=== PATIENT | male | born 1980 | race Caucasian/White ===

== ENCOUNTER 2020-06-11 02:12 | Inpatient (IN) ==
[2020-06-11] MEDS ORDERED: 0.9 % SODIUM CHLORIDE 1,000 ML IV ONE ×3 (02:41→04:22)
[2020-06-11] MEDS ORDERED: INSULIN REGULAR, HUMAN 1 UNIT/0.01 ML UNIT IV ONE (02:41)
[2020-06-11] MEDS ORDERED: ONDANSETRON 4 MG ODT TABLET SL ONE (02:41)
[2020-06-11 02:52] LABS: POC Blood Urea Nitrogen 27 mg/dL (6-20); POC CO2 10 mmol/L (22-30); POC Calcium, Ionized 1.07 mmEq/L (1.16-1.32); POC Chloride 96 mEq/L (96-108); POC Creatinine 1.2 mg/dL (0.6-1.2); POC Glucose, Random > 700 mg/dL; POC Hematocrit 45 % (41-55); POC Potassium 5.4 mEql/L (3.3-5.1); POC Sodium 127 mEq/L (133-145)
[2020-06-11] MEDS ORDERED: HALOPERIDOL LACTATE 5 MG/ML VIAL IV ONE (02:59)
[2020-06-11] MEDS ORDERED: LORazepam 2 MG/ML VIAL IV ONE (03:00)
[2020-06-11 03:42] LABS: Basophils # (Auto) 0.06 K/mcL (0.00-0.20); Basophils % (Auto) 0.3 % (0.0-2.0); Eosinophils # (Auto) 0.02 K/mcL (0.00-0.70); Eosinophils % (Auto) 0.1 % (0.0-7.0); Lymphocytes # (Auto) 2.02 K/mcL (1.50-4.80); Lymphocytes % (Auto) 11.4 % (15.0-49.0); Mean Cell Volume 97.4 fL (80.0-100.0); Mean Corpuscular HGB Conc 31.1 g/dL (31.0-36.0); Mean Platelet Volume 10.1 fL (7.4-10.4); Monocytes # (Auto) 0.64 K/mcL (0.10-0.90); Monocytes % (Auto) 3.6 % (1.0-12.0); Neutrophils % (Auto) 84.6 % (38.0-78.0); Platelet Count 547 K/mcL (140-440); RBC 4.62 M/mcL (4.50-5.90); Red Cell Distribution Width 13.3 % (11.5-14.5); WBC 17.8 K/mcL (4.5-11.0)
[2020-06-11 04:14] LABS: ALT/SGPT 22 U/L (<40); AST/SGOT 20 U/L (<40); Albumin 4.1 gm/dL (3.2-5.2); Albumin/Globulin Ratio 1.1 (1.0-2.3); Alkaline Phosphatase 190 U/L (39-117); Bilirubin,Total 0.4 mg/dL (0.1-1.0); Blood Urea Nitrogen 24 mg/dL (6-20); Carbon Dioxide 7 mmol/L (22-30); Chloride 85 mmol/L (96-108); Globulin 3.8 gm/dL (2.2-3.7); Glomerular Filtration Rate 62; Glucose 765 mg/dL (70-105)
[2020-06-11] MEDS ORDERED: INSULIN REGULAR, HUMAN 50 UNIT in 0.9 % SODIUM CHLORIDE 99.5 ML IV SCH (04:45)
[2020-06-11] MEDS ORDERED: INSULIN REGULAR, HUMAN 1 UNIT/0.01 ML UNIT ONE (04:49)
[2020-06-11 06:05] LABS: Appearance,Urine CLEAR (Clear); Bacteria,Urine 0 /hpf (0); Bilirubin,Urine Negative (Negative); Color,Urine RED; Culture Indicated,Urine No; Glucose,Urine (UA) >=500 mg/dL (Negative); Ketones,Urine 80 mg/dL (Negative); Leukocyte Esterase,Urine Negative /ug (Negative); Nitrate,Urine Negative (Negative); Protein,Urine Negative (Negative); Specific Gravity,Urine 1.023 (1.000-1.035); Urine Blood 0.03 mg/dL (Negative); Urine RBC 0 /hpf (0-3); Urine Squamous Epithelial Cell 0 /hpf (0-4); Urine WBC 0 /hpf (0-4); Urobilinogen,Urine Negative
[2020-06-11] MEDS ORDERED: 0.9 % SODIUM CHLORIDE 1,000 ML IV SCH (06:15)
--- NOTE | 2020-06-11 07:08 | Emergency Department Note ---
HPI General Chief complaint: Blood Sugar Problem Stated complaint: high blood sugar Time Seen by Provider: 06/11/20 02:41 Source: patient Mode of arrival: ambulatory Limitations: no limitations History of Present Illness HPI Narrative: Narrative: This patient apparently ran out of his insulin 3 days ago and has been ill during that time with nausea and vomiting and his blood sugar is running quite high over 700 here. Does not have abdominal pain no cough. He is an IV drug user and has minimal veins available for axis. However experienced nurses placed an IO in his left tibia to gain IV access. Related Data Home Medications Medication Instructions Recorded Confirmed albuterol sulfate [Ventolin] 2 puff INH Q4HP PRN 04/01/18 04/01/18 insulin aspart U-100 [Novolog] 1 unit SQ QDAY 04/01/18 04/01/18 insulin glargine [Lantus] 15 unit SQ BID 04/01/18 04/01/18 lisinopril 2.5 mg PO DAILY 04/01/18 04/01/18 mometasone-formoterol [Dulera 100 2 puff IH BID 04/01/18 04/01/18 Mcg/5 Mcg Inhaler] omeprazole 20 mg PO QDAY 04/01/18 04/01/18 trazodone 50 mg PO HS 04/01/18 04/01/18 Previous Rx's Medication Instructions Recorded amoxicillin-pot clavulanate 875 mg PO Q12H #20 tab 04/01/18 doxycycline monohydrate 100 mg PO BID 10 Days #20 cap 04/21/18 fluticasone propionate 15.8 ml NS DAILY 30 Days #1 04/21/18 spray.susp loratadine 10 mg PO DAILY #20 cap 04/21/18 acyclovir 200 mg PO Q4H #50 cap 05/04/18 cephalexin 500 mg PO QID #40 cap 07/06/18 doxycycline hyclate 100 mg PO BID #20 cap 07/07/18 sulfamethoxazole-trimethoprim 1 tab PO Q12H #20 tab 11/14/19 [Bactrim DS] Allergies Allergy/AdvReac Type Severity Reaction Status Date / Time No Known Drug Allergies Allergy Verified 06/11/20 02:20 Review of Systems ROS ROS Narrative: Narrative: All systems ED: reviewed and negative except as stated. PFSH Narrative Patient History Narrative: Narrative: Medical/Surgical/Family History All Active Problems (Updated 06/11/20 @ 08:45 by Barrett Young MD) Gastroenteritis (Acute) Sinusitis (Acute) Diabetes (Acute) Hyperglycemia (Acute) Genital herpes (Acute) Abscess of skin or subcutaneous tissue (Acute) Degenerative disc disease, thoracic (Acute) Abscess (Acute) Diabetic keto-acidosis (Acute) Social History Smoking Status: Never smoker Alcohol Intake Frequency: a few times a week Substance Use: other (Unknown) Exam Narrative Narrative: Narrative: General Limitations: no limitations Head Head: Present atraumatic, normocephalic and normal inspection Eye Eye: Present normal appearance and EOMI; Absent scleral icterus and conjunctival injection ENT ENT: Present normal exam and mucous membranes dry Neck Neck: Present normal inspection and full ROM Chest Chest: Present normal inspection and symmetric chest wall rise Respiratory Respiratory: Present normal lung sounds bilaterally; Absent respiratory dist ress, rales/crackles and wheezes Cardiovascular Cardiovascular: Present regular rate, normal rhythm and normal heart sounds Adbominal Abdominal: Present soft; Absent distention and tenderness Extremities Extremities: Present normal inspection and full ROM; Absent tenderness and pedal edema Neurological Neurological: Present alert Psychiatric Psychiatric: Present normal affect Skin Skin: Present warm (WNL), dry, diaphoresis and other (He does have some pustules on his anterior chest wall that are little bit erythematous and apparently he is under treatment for MRSA.) Course Vital Signs Vital signs: Vital Signs Pulse Rate 97 H 06/11/20 02:13 Respiratory Rate 35 H 06/11/20 02:13 Blood Pressure 180/100 06/11/20 02:13 Pulse Oximetry (%) 100 06/11/20 02:13 Pulse Rate 103 H 06/11/20 08:31 Respiratory Rate 19 06/11/20 08:31 Blood Pressure 147/77 06/11/20 08:31 Pulse Oximetry (%) 98 06/11/20 08:31 MDM MDM Narrative Medical decision making narrative: Narrative: This patient was in severe diabetic ketoacidosis initially with an anion gap of 35 and a T CO2 of 7. He was hydrated with normal saline given regular insulin IV and an insulin drip was started as soon as it was evident that he was in DKA. I have discussed this case with the hospitalist and he will be admitted to the ICU. We will do blood cultures a chest x-ray and a UDS before admission. Lab Data Lab results reviewed: Yes I reviewed the patient's lab results. Result diagrams: 06/11/20 02:33 06/11/20 06:57 Labs: Lab Results 06/11/20 06/11/20 06/11/20 Range/Units 02:33 02:33 02:33 WBC 17.8 H (4.5-11.0) K/mcL RBC 4.62 (4.50-5.90) M/mcL Hgb 14.0 (13.5-16.5) g/dL Hct 45.0 (41.0-55.0) % POC Hct 45 (41-55) % MCV 97.4 (80.0-100.0) fL MCH 30.3 (26.0-34.0) pg MCHC 31.1 (31.0-36.0) g/dL RDW 13.3 (11.5-14.5) % Plt Count 547 H (140-440) K/mcL MPV 10.1 (7.4-10.4) fL Neut % (Auto) 84.6 H (38.0-78.0) % Lymph % (Auto) 11.4 L (15.0-49.0) % [place]oke % (Auto) 3.6 (1.0-12.0) % Eos % (Auto) 0.1 (0.0-7.0) % Baso % (Auto) 0.3 (0.0-2.0) % Lymph # (Auto) 2.02 (1.50-4.80) K/mcL [place] # (Auto) 0.64 (0.10-0.90) K/mcL Eos # (Auto) 0.02 (0.00-0.70) K/mcL Baso # (Auto) 0.06 (0.00-0.20) K/mcL Absolute Neutrophils 15.05 H (1.80-8.00) K/mcL POC Sodium 127 L (133-145) mEq/L Sodium 127 L (133-145) mmol/L POC Potassium 5.4 H (3.3-5.1) mEql/L Potassium 5.5 H (3.3-5.1) mmol/L POC Chloride 96 (96-108) mEq/L Chloride 85 L (96-108) mmol/L Carbon Dioxide 7 L* (22-30) mmol/L POC Total CO2 10 L (22-30) mmol/L Anion Gap 35.0 H (8.0-16.0) POC BUN 27 H (6-20) mg/dL BUN 24 H (6-20) mg/dL Creatinine 1.4 H (0.7-1.2) mg/dL POC Creatinine 1.2 (0.6-1.2) mg/dL GFR Calculation 62 Glucose 765 H* (70-105) mg/dL POC Glucose > 700 H* mg/dL Calcium 9.0 (8.6-10.4) mg/dL POC WB Ioniz Calcium 1.07 L (1.16-1.32) mmEq/L Total Bilirubin 0.4 (0.1-1.0) mg/dL AST 20 (<40) U/L ALT 22 (<40) U/L Alkaline Phosphatase 190 H (39-117) U/L Total Protein 7.9 (5.9-8.4) gm/dL Albumin 4.1 (3.2-5.2) gm/dL Globulin 3.8 H (2.2-3.7) gm/dL Albumin/Globulin Ratio 1.1 (1.0-2.3) Lipase 12 (7-60) U/L Beta-Hydroxybutyrate 10.80 H (<0.27) mmol/L Urine Color Urine Appearance (Clear) Urine pH (5.0-9.0) Ur Specific [place] (1.000-1.035) Urine Protein (Negative) mg/dL Urine Glucose (UA) (Negative) mg/dL Urine Ketones (Negative) mg/dL Urine Occult Blood (Negative) mg/dL Urine Nitrate (Negative) Urine Bilirubin (Negative) mg/dL Urine Urobilinogen mg/dL Ur Leukocyte Esterase (Negative) /ug Urine RBC (0-3) /hpf Urine WBC (0-4) /hpf Ur Squamous Epith Cells (0-4) /hpf Urine Bacteria (0) /hpf Ur Culture Indicated? 06/11/20 06/11/20 Range/Units 04:18 06:57 WBC (4.5-11.0) K/mcL RBC (4.50-5.90) M/mcL Hgb (13.5-16.5) g/dL Hct (41.0-55.0) % POC Hct (41-55) % MCV (80.0-100.0) fL MCH (26.0-34.0) pg MCHC (31.0-36.0) g/dL RDW (11.5-14.5) % Plt Count (140-440) K/mcL MPV (7.4-10.4) fL Neut % (Auto) (38.0-78.0) % Lymph % (Auto) (15.0-49.0) % [place] % (Auto) (1.0-12.0) % Eos % (Auto) (0.0-7.0) % Baso % (Auto) (0.0-2.0) % Lymph # (Auto) (1.50-4.80) K/mcL [place] # (Auto) (0.10-0.90) K/mcL Eos # (Auto) (0.00-0.70) K/mcL Baso # (Auto) (0.00-0.20) K/mcL Absolute Neutrophils (1.80-8.00) K/mcL POC Sodium (133-145) mEq/L Sodium 133 (133-145) mmol/L POC Potassium (3.3-5.1) mEql/L Potassium 5.1 (3.3-5.1) mmol/L POC Chloride (96-108) mEq/L Chloride 101 (96-108) mmol/L Carbon Dioxide 15 L (22-30) mmol/L POC Total CO2 (22-30) mmol/L Anion Gap 17.0 H (8.0-16.0) POC BUN (6-20) mg/dL BUN 20 (6-20) mg/dL Creatinine 1.0 (0.7-1.2) mg/dL POC Creatinine (0.6-1.2) mg/dL GFR Calculation 93 Glucose 250 H (70-105) mg/dL POC Glucose mg/dL Calcium 8.0 L (8.6-10.4) mg/dL POC WB Ioniz Calcium (1.16-1.32) mmEq/L Total Bilirubin 0.3 (0.1-1.0) mg/dL AST 16 (<40) U/L ALT 20 (<40) U/L Alkaline Phosphatase 166 H (39-117) U/L Total Protein 7.0 (5.9-8.4) gm/dL Albumin 3.7 (3.2-5.2) gm/dL Globulin 3.3 (2.2-3.7) gm/dL Albumin/Globulin Ratio 1.1 (1.0-2.3) Lipase (7-60) U/L Beta-Hydroxybutyrate (<0.27) mmol/L Urine Color Red Urine Appearance Clear (Clear) Urine pH 5.0 (5.0-9.0) Ur Specific [place] 1.023 (1.000-1.035) Urine Protein Negative (Negative) mg/dL Urine Glucose (UA) >=500 A (Negative) mg/dL Urine Ketones 80 A (Negative) mg/dL Urine Occult Blood 0.03 (Negative) mg/dL Urine Nitrate Negative (Negative) Urine Bilirubin Negative (Negative) mg/dL Urine Urobilinogen Negative mg/dL Ur Leukocyte Esterase Negative (Negative) /ug Urine RBC 0 (0-3) /hpf Urine WBC 0 (0-4) /hpf Ur Squamous Epith Cells 0 (0-4) /hpf Urine Bacteria 0 (0) /hpf Ur Culture Indicated? No ED POC Tests ED POC Tests: AB - Influenza A Negative AB - Influenza B Negative AB - SARS Antigen Negative Discharge Plan Patient/Caregiver Discharge Instructions Pt seen by HOURLY CAREGIVER/PA only: No Clinical Impression: Diabetic keto-acidosis Patient Disposition: Xfer As Inpt ([facility]) Prescriptions: No Action Lantus U-100 Insulin 1 UNIT/0.01 ML solution 15 unit SQ BID RF: 0 trazodone 50 MG tablet 50 mg PO HS RF: 0 insulin aspart U-100 [Novolog U-100 Insulin aspart] 100 UNIT/ML solution 1 unit SQ QDAY RF: 0 omeprazole 20 MG capsule,delayed release(DR/EC) 20 mg PO QDAY RF: 0 albuterol sulfate [Ventolin HFA] 1 PUFF HFA aerosol inhaler 2 puff INH Q4HP PRN (Reason: Shortness Of Breath) RF: 0 lisinopril 2.5 MG tablet 2.5 mg PO DAILY RF: 0 Dulera 13 GM HFA aerosol inhaler 2 puff IH BID RF: 0 amoxicillin-pot clavulanate 875 MG tablet 875 mg PO Q12H Qty: 20 RF: 0 doxycycline monohydrate 100 MG capsule 100 mg PO BID 10 Days Qty: 20 RF: 0 fluticasone propionate 15.8 ML spray,suspension 15.8 ml NS DAILY 30 Days Qty: 1 RF: 0 loratadine 10 MG capsule 10 mg PO DAILY Qty: 20 RF: 0 acyclovir 200 MG capsule 200 mg PO Q4H Qty: 50 RF: 0 cephalexin 500 MG capsule 500 mg PO QID Qty: 40 RF: 0 doxycycline hyclate 100 MG capsule 100 mg PO BID Qty: 20 RF: 0 sulfamethoxazole-trimethoprim [Bactrim DS] 800-160 mg tablet 1 tab PO Q12H Qty: 20 RF: 0
[2020-06-11] MEDS ORDERED: DEXTROSE 5%-1/2NS 1,000 ML IV ONE (08:09)
[2020-06-11 08:33] LABS: ALT/SGPT 20 U/L (<40); AST/SGOT 16 U/L (<40); Albumin 3.7 gm/dL (3.2-5.2); Albumin/Globulin Ratio 1.1 (1.0-2.3); Alkaline Phosphatase 166 U/L (39-117); Bilirubin,Total 0.3 mg/dL (0.1-1.0); Blood Urea Nitrogen 20 mg/dL (6-20); Carbon Dioxide 15 mmol/L (22-30); Chloride 101 mmol/L (96-108); Globulin 3.3 gm/dL (2.2-3.7); Glomerular Filtration Rate 93; Glucose 250 mg/dL (70-105)
--- NOTE | 2020-06-11 09:05 | XRay Report ---
CLINICAL INFORMATION: Diabetic ketoacidosis COMPARISON: None. TECHNIQUE: PA and Lateral views FINDINGS: The heart size, mediastinum and pulmonary vessels are unremarkable. The lungs are clear. There are no effusions. The bones and soft tissues are within normal limits. IMPRESSION: Normal chest. Interpreted and Authenticated by: Yomi Kaur 06/11/20
[2020-06-11 09:59] LABS: Amphetamine Screen,Urine Suspect positive; Barbiturate Screen,Urine None detected; Benzodiazepines Screen,Urine None detected; Cannabinoid Screen,Urine None detected; Cocaine Screen,Urine None detected; Opiate Screen,Urine None detected; Oxycodone, Urine Screen None detected; Phencyclidine Screen,Urine None detected
--- NOTE | 2020-06-11 11:05 | Internal Med History&Physical ---
HPI History of Present Illness Patient information: Note initiated : 06/11/20 at 10:53 am Service Date, if different from initiated Date: [] Patient: Kelvin Plunkett 39 y/o M admitted on for High Blood Sugar. Chief Complaint: [Diabetic ketoacidosis ] History of present illness: Mr. Plunkett is a 39 year old diabetes mellitus type 1 diagnosed at age of 5, MRSA skin infections, asthma presented to the ED after 2 days of, nausea and vomiting and found to have diabetic ketoacidosis. Patient says that he ran out of insulin couple days ago. He denies recent fevers, shortness of breath, chest pain. The patient does have multiple skin infections consistent with his history of MRSA soft tissue skin infections. The patient has had IV drug use in the past but denies any recent drug use. Patient did have leukocytosis in the ED, no fevers documented. Patient was admitted to the ICU for DKA management. Review of systems Constitutional: no fever, positive for fatigue, Eyes: no vision changes or pain Cardiovascular: no chest pain, no palpitations Respiratory: no cough or dyspnea Gastrointestinal: positive for nausea and vomiting Genitourinary: no dysuria or difficulty voiding Musculoskeletal: no arthralgia or myalgia Integumentary: positive for chronic skin wounds Neurological: no focal weakness or numbness Psychiatric: no anxiety or depression PFSH PFSH All Active Problems (Updated 06/11/20 @ 08:45 by Barrett Young MD) Gastroenteritis (Acute) Sinusitis (Acute) Diabetes (Acute) Hyperglycemia (Acute) Genital herpes (Acute) Abscess of skin or subcutaneous tissue (Acute) Degenerative disc disease, thoracic (Acute) Abscess (Acute) Diabetic keto-acidosis (Acute) Social History smoking status: Never smoker alcohol intake frequency: a few times a week substance use type: other (Unknown) MEDS/ALLERGIES Home Medications and Allergies Home Medications Medication Instructions Recorded Confirmed Type albuterol sulfate [Ventolin] 2 puff INH Q4HP PRN 04/01/18 06/11/20 History insulin aspart U-100 [Novolog] 1 unit SQ QDAY 04/01/18 04/01/18 History insulin glargine [Lantus] 15 unit SQ BID 04/01/18 04/01/18 History lisinopril 2.5 mg PO DAILY 04/01/18 06/11/20 History mometasone-formoterol [Dulera 100 2 puff IH BID 04/01/18 04/01/18 History Mcg/5 Mcg Inhaler] omeprazole 20 mg PO QDAY 04/01/18 04/01/18 History trazodone 50 mg PO HS 04/01/18 06/11/20 History loratadine 10 mg PO DAILY #20 cap 04/21/18 Rx acyclovir 200 mg PO Q4H #50 cap 05/04/18 06/11/20 Rx fluticasone propionate INTRANASAL 06/11/20 06/11/20 History fluticasone propionate [Flovent 1 inh INHALATION BID 06/11/20 06/11/20 History Diskus] Allergies Allergy/AdvReac Type Severity Reaction Status Date / Time No Known Drug Allergies Allergy Verified 06/11/20 02:20 EXAM Constitutional Vitals: Pulse Resp BP Pulse Ox 88 22 149/78 98 06/11/20 10:31 06/11/20 10:31 06/11/20 10:31 06/11/20 10:31 Additional findings Additional findings: Head: Atraumatic, normal inspection. Eyes: normal appearance, no scleral icterus. Neck: full ROM Respiratory: increased respiratory rate, lungs clear bilaterally Cardiovascular: normal rate and rhythm, S1, S2. GI/Abdominal: soft, nontender, no guarding, surgical scar present Extremities: full range of motion, nontender, multiple small abscesses present Neurological: CN II-XII intact, intact motor, intact sensation. Psychiatric: normal mood. Skin: warm, normal color DATA Data Completed and Pending Labs: Labs from last 24 hours 06/11/20 06/11/20 06/11/20 06:57 04:18 04:18 WBC RBC Hgb Hct POC Hct MCV MCH MCHC RDW Plt Count MPV Neut % (Auto) Lymph % (Auto) [place] % (Auto) Eos % (Auto) Baso % (Auto) Lymph # (Auto) [place] # (Auto) Eos # (Auto) Baso # (Auto) Absolute Neutrophils POC Sodium Sodium 133 POC Potassium Potassium 5.1 POC Chloride Chloride 101 Carbon Dioxide 15 L POC Total CO2 Anion Gap 17.0 H POC BUN BUN 20 Creatinine 1.0 POC Creatinine GFR Calculation 93 Glucose 250 H POC Glucose Calcium 8.0 L POC WB Ioniz Calcium Total Bilirubin 0.3 AST 16 ALT 20 Alkaline Phosphatase 166 H Total Protein 7.0 Albumin 3.7 Globulin 3.3 Albumin/Globulin Ratio 1.1 Lipase Beta-Hydroxybutyrate Urine Color Red Urine Appearance Clear Urine pH 5.0 Ur Specific [place] 1.023 Urine Protein Negative Urine Glucose (UA) >=500 A Urine Ketones 80 A Urine Occult Blood 0.03 Urine Nitrate Negative Urine Bilirubin Negative Urine Urobilinogen Negative Ur Leukocyte Esterase Negative Urine RBC 0 Urine WBC 0 Ur Squamous Epith Cells 0 Urine Bacteria 0 Ur Culture Indicated? No Urine Opiates Screen None detected Ur Opiates Confirm Pending Ur Oxycodone Screen None detected Urine Methadone Screen None detected Ur Methadone Confirm Pending Ur Barbiturates Screen None detected Ur Barbiturate Confirm Pending Ur Phencyclidine Scrn None detected Urine PCP Confirm Pending Ur Amphetamines Screen Suspect positive A U Amphetamines Confirm Pending U Benzodiazepines Scrn None detected U Benzodiazepine Confm Pending Urine Cocaine Screen None detected Urine Cocaine Confirm Pending U Cannabinoids Confirm Pending U Marijuana (THC) Screen None detected 06/11/20 06/11/20 06/11/20 02:33 02:33 02:33 WBC 17.8 H RBC 4.62 Hgb 14.0 Hct 45.0 POC Hct 45 MCV 97.4 MCH 30.3 MCHC 31.1 RDW 13.3 Plt Count 547 H MPV 10.1 Neut % (Auto) 84.6 H Lymph % (Auto) 11.4 L [place] % (Auto) 3.6 Eos % (Auto) 0.1 Baso % (Auto) 0.3 Lymph # (Auto) 2.02 [place] # (Auto) 0.64 Eos # (Auto) 0.02 Baso # (Auto) 0.06 Absolute Neutrophils 15.05 H POC Sodium 127 L Sodium 127 L POC Potassium 5.4 H Potassium 5.5 H POC Chloride 96 Chloride 85 L Carbon Dioxide 7 L* POC Total CO2 10 L Anion Gap 35.0 H POC BUN 27 H BUN 24 H Creatinine 1.4 H POC Creatinine 1.2 GFR Calculation 62 Glucose 765 H* POC Glucose > 700 H* Calcium 9.0 POC WB Ioniz Calcium 1.07 L Total Bilirubin 0.4 AST 20 ALT 22 Alkaline Phosphatase 190 H Total Protein 7.9 Albumin 4.1 Globulin 3.8 H Albumin/Globulin Ratio 1.1 Lipase 12 Beta-Hydroxybutyrate 10.80 H Urine Color Urine Appearance Urine pH Ur Specific [place] Urine Protein Urine Glucose (UA) Urine Ketones Urine Occult Blood Urine Nitrate Urine Bilirubin Urine Urobilinogen Ur Leukocyte Esterase Urine RBC Urine WBC Ur Squamous Epith Cells Urine Bacteria Ur Culture Indicated? Urine Opiates Screen Ur Opiates Confirm Ur Oxycodone Screen Urine Methadone Screen Ur Methadone Confirm Ur Barbiturates Screen Ur Barbiturate Confirm Ur Phencyclidine Scrn Urine PCP Confirm Ur Amphetamines Screen U Amphetamines Confirm U Benzodiazepines Scrn U Benzodiazepine Confm Urine Cocaine Screen Urine Cocaine Confirm U Cannabinoids Confirm U Marijuana (THC) Screen A/P Narrative A/P Narrative: Assessment: 39-year-old male diabetes mellitus type 1, MRSA ductions, asthma, history of previous IV drug use admitted for diabetic ketoacidosis probably because the patient ran out of insulin. . #Diabetic ketoacidosis #Diabetes mellitus type I #Leukocytosis: probably stress induced #MRSA skin infections #Asthma #Hx of IVDU Plan: -ICU admit: regular insulin IV w/ D5 1/2 NS to keep glucose > 200 until anion gap closes and the patient is eating then discontinue IV insulin and resume home basal bolus insulin regiment with appropriate overlap period. -Serial labs to follow DKA while on IV insulin-may need potassium/magnesium replacement. -Zofran IV prn. -Telemetry -Monitor CBC -Blood cultures -Chest xray -UDS -resume other home meds when reconciled -DVT ppx: lovenox -Dispo: home when DKA resolved Time Spent With Patient Time: Total time spent is greater than 50% in coordination of care (as documented) at patient's floor/unit and/or counseling patient: 70
[2020-06-11] MEDS ORDERED: ALBUTEROL SULFATE 2.5 MG/3 ML NEBULIZER NEB PRN (11:09)
[2020-06-11] MEDS ORDERED: ONDANSETRON 4 MG/2 ML VIAL IV PRN (11:09)
[2020-06-11] MEDS: INSULIN REGULAR, HUMAN 50 UNIT in 0.9 % SODIUM CHLORIDE 99.5 ML IV SCH ×2 (11:09→12:39)
[2020-06-11] MEDS: DEXTROSE 5%-1/2NS 1,000 ML IV SCH ×2 (11:55→20:49)
[2020-06-11 12:42] LABS: ABG Methemoglobin 0 % (0.4-1.5); Total Hemoglobin 12.2 gm/Dl (13.5-16.5); VBG Base Excess -14 (-2-3); VBG Oxygen Saturation 95.4 % (40.0-70.0); VBG PCO2 27.2 mmHg (41.0-51.0); VBG PH 7.26 U (7.32-7.42); VBG PO2 128.9 mmHg (25.0-40.0); VBG Total CO2 12.8 mmol/L (25.0-29.0)
[2020-06-11 13:51] LABS: Chloride 98 mmol/L (96-108)
[2020-06-11] MEDS: 0.9 % SODIUM CHLORIDE 10 ML SYRINGE IV SCH ×2 (14:54→20:50)
[2020-06-11 15:17] LABS: ALT/SGPT 18 U/L (<40); AST/SGOT 15 U/L (<40); Albumin 3.5 gm/dL (3.2-5.2); Albumin/Globulin Ratio 1.3 (1.0-2.3); Alkaline Phosphatase 148 U/L (39-117); Bilirubin,Direct < 0.2 mg/dL (<0.3); Bilirubin,Total 0.3 mg/dL (0.1-1.0); Blood Urea Nitrogen 14 mg/dL (6-20); Carbon Dioxide 12 mmol/L (22-30); Globulin 2.8 gm/dL (2.2-3.7); Glomerular Filtration Rate 106; Glucose 548 mg/dL (70-105); Lactate Dehydrogenase 222 U/L (135-225); Phosphorous 2.4 mg/dL (2.5-4.5); Triglycerides 153 mg/dL (<150); Uric Acid 8.1 mg/dL (2.5-8.0)
[2020-06-11] MEDS: MUPIROCIN OINT 2% 22GM TOPICAL SCH ×2 (15:31→20:49)
[2020-06-11] MEDS ORDERED: DEXTROSE 50% 50 ML VIAL IV ONE (16:37)
[2020-06-11] MEDS ORDERED: DEXTROSE 10 % IN WATER 1,000 ML IV SCH ×2 (16:45→22:16)
[2020-06-11 16:49] LABS: ABG Methemoglobin 0.3 % (0.4-1.5); Total Hemoglobin 12.8 gm/Dl (13.5-16.5); VBG Base Excess -6 (-2-3); VBG PCO2 41.1 mmHg (41.0-51.0); VBG PO2 86.5 mmHg (25.0-40.0); VBG Total CO2 21.2 mmol/L (25.0-29.0)
[2020-06-11 16:50] LABS: Basophils # (Auto) 0.02 K/mcL (0.00-0.20); Basophils % (Auto) 0.1 % (0.0-2.0); Eosinophils # (Auto) 0 K/mcL (0.00-0.70); Eosinophils % (Auto) 0 % (0.0-7.0); Hematocrit 39.6 % (41.0-55.0); Hemoglobin 13.1 g/dL (13.5-16.5); Lymphocytes % (Auto) 7.3 % (15.0-49.0); Mean Cell Volume 90.4 fL (80.0-100.0); Mean Corpuscular HGB Conc 33.1 g/dL (31.0-36.0); Mean Platelet Volume 8.7 fL (7.4-10.4); Monocytes # (Auto) 0.46 K/mcL (0.10-0.90); Monocytes % (Auto) 3.3 % (1.0-12.0); Neutrophils % (Auto) 89.3 % (38.0-78.0); Platelet Count 436 K/mcL (140-440); RBC 4.38 M/mcL (4.50-5.90); Red Cell Distribution Width 13.2 % (11.5-14.5); WBC 13.8 K/mcL (4.5-11.0)
[2020-06-11 19:36] LABS: ABG Methemoglobin 0.3 % (0.4-1.5); Total Hemoglobin 12.1 gm/Dl (13.5-16.5); VBG Base Excess -1 (-2-3); VBG HCO3 22.9 mmol/L (24.0-28.0); VBG PCO2 36.4 mmHg (41.0-51.0); VBG PH 7.42 U (7.32-7.42); VBG PO2 145.9 mmHg (25.0-40.0)
[2020-06-11] MEDS: FLUTICASONE PROPIONATE INH SCH (20:49)
[2020-06-11] MEDS ORDERED: traZODone HCL 50 MG TABLET PO PRN (21:00)
[2020-06-11] MEDS ORDERED: GABAPENTIN 300 MG CAPSULE PO SCH (21:00)
[2020-06-11 23:35] LABS: ABG Methemoglobin 0.3 % (0.4-1.5); Total Hemoglobin 12.3 gm/Dl (13.5-16.5); VBG Base Excess -1 (-2-3); VBG Oxygen Saturation 91.2 % (40.0-70.0); VBG PCO2 42.6 mmHg (41.0-51.0); VBG PH 7.37 U (7.32-7.42); VBG PO2 71.3 mmHg (25.0-40.0); VBG Total CO2 25.3 mmol/L (25.0-29.0)
[2020-06-12] MEDS ORDERED: 0.9 % SODIUM CHLORIDE 250 ML IV SCH (00:25)
[2020-06-12] MEDS: DEXTROSE 5%-1/2NS 1,000 ML IV SCH (02:14)
[2020-06-12] MEDS ORDERED: DEXTROSE 5%-1/2NS 1,000 ML IV SCH (04:29)
[2020-06-12] MEDS: 0.9 % SODIUM CHLORIDE 10 ML SYRINGE IV SCH ×3 (05:42→20:54)
[2020-06-12 07:24] LABS: Hematocrit 37.7 % (41.0-55.0); Hemoglobin 12.5 g/dL (13.5-16.5); Mean Cell Volume 91.1 fL (80.0-100.0); Mean Corpuscular HGB Conc 33.2 g/dL (31.0-36.0); Platelet Count 352 K/mcL (140-440); RBC 4.14 M/mcL (4.50-5.90); Red Cell Distribution Width 13.4 % (11.5-14.5); WBC 12.6 K/mcL (4.5-11.0)
[2020-06-12 08:26] LABS: Band Neutrophils % 1 % (0-10); Lymphocytes % 8 % (15-49); Monocytes % (Manual) 2 % (1-12); Platelet Estimate NORMAL (Normal); RBC Morphology NORMAL (Normal); Segmented Neutrophils % 89 % (38-78)
[2020-06-12] MEDS ORDERED: DEXTROSE 31 GM ORAL.SUSP PO PRN (08:58)
[2020-06-12] MEDS ORDERED: DEXTROSE 50% 50 ML VIAL IV PRN (08:58)
[2020-06-12] MEDS: INSULIN GLARGINE, HUMAN 1 UNIT/0.01 ML SQ SCH ×2 (09:15→20:54)
[2020-06-12] MEDS: OMEPRAZOLE 20 MG CAPSULE PO SCH (09:15)
[2020-06-12] MEDS: ENOXAPARIN 40 MG/0.4 ML SYRINGE SQ SCH (09:15)
[2020-06-12] MEDS: MONTELUKAST 10 MG TABLET PO SCH (09:15)
[2020-06-12] MEDS: FLUTICASONE PROPIONATE INH SCH ×2 (09:16→20:54)
[2020-06-12] MEDS: MUPIROCIN OINT 2% 22GM TOPICAL SCH ×3 (09:22→20:53)
[2020-06-12] MEDS: CETIRIZINE 10 MG TABLET PO SCH (09:29)
--- NOTE | 2020-06-12 11:08 | Internal Med Progress Note ---
SUBJECTIVE Subjective Patient information: Note initiated : 06/12/20 at 11:07 am Service Date, if different from initiated Date: [] Patient: Kelvin Plunkett 39 y/o M admitted on 06/11/20 for High Blood Sugar. Chief Complaint: [] Interval history: Mr. Plunkett is a 39 year old diabetes mellitus type 1 diagnosed at age of 5, MRSA skin infections, asthma presented to the ED after 2 days of, nausea and vomiting and found to have diabetic ketoacidosis. Patient says that he ran out of insulin couple days ago. He denies recent fevers, shortness of breath, chest pain. The patient does have multiple skin infections consistent with his history of MRSA soft tissue skin infections. The patient has had IV drug use in the past but denies any recent drug use. Patient did have leukocytosis in the ED, no fevers documented. Patient was admitted to the ICU for DKA management. 06/12 DKA has resolved, transitioned to subcutaneous basal/bolus insulin. Started PO doxycycline for multiple skin abscesses. Constitutional Vitals: Vital Signs Temp Pulse Resp BP Pulse Ox 98.8 F 66 19 149/80 96 06/12/20 07:00 06/12/20 10:00 06/12/20 10:00 06/12/20 10:00 06/12/20 10:00 Period Temp Pulse Resp BP Sys/Wong Pulse Ox Last 24 Hr 98.8 F-99.4 F 57-95 14-24 126-166/70-84 85-100 Intake and Output 06/11/20 06/12/20 06/12/20 21:59 05:59 13:59 Intake Total 237 1526 842 Output Total 541 1395 645 Balance -304 131 197 Weight 63.004 kg Intake & Output: Intake & Output 06/11/20 06/12/20 06/12/20 21:59 05:59 13:59 Intake Total 237 1526 842 Output Total 541 1395 645 Balance -304 131 197 Weight 63.004 kg Intake: IV 37 1276 722 Dextrose 10%-Water IV Solution 963 1,000 ml @ 100 mls/hr IV .Q10H DEACON Rx#:[id number] Dextrose 5%-1/2Ns IV Solution 1 290 710 ,000 ml @ 100 mls/hr IV .Q10H DEACON Rx#:[id number] HumuLIN R 50 UNIT In Sodium 37 23 12 Chloride 0.9% 99.5 ml @ Per Protocol IV DUR DEACON Rx#: [id number] Oral 200 250 120 Output: Urine Catheter Amount 541 1395 545 Void Amount 100 Other: Meal Breakfast Percent of Meal Consumed 100% Urine Appearance Cloudy Clear Clear Sediment Uretheral (Berger) Cloudy Cloudy Sediment Urine Color Straw Straw Pale Uretheral (Berger) Straw Straw Urine Odor Normal Normal Additional findings Additional findings: Head: Atraumatic, normal inspection. Eyes: normal appearance, no scleral icterus. Neck: full ROM Respiratory: no respiratory distress. Cardiovascular: normal rate and rhythm, S1, S2. GI/Abdominal: soft, nontender, no guarding. Extremities: multiple skin abscesses and abrasions, full range of motion, nontender. Neurological: CN II-XII intact, intact motor, intact sensation. Psychiatric: withdrawn, no agitation or anxiety Skin: warm, normal color OBJ DATA Labs CBC & Chem 7: 06/12/20 04:53 06/11/20 23:15 Labs: Abnormal Lab Results 06/12/20 06/11/20 06/11/20 04:53 23:15 23:14 WBC 12.6 H RBC 4.14 L Hgb 12.5 L Hct 37.7 L Plt Count Neut % (Auto) Lymph % (Auto) Lymph # (Auto) Seg Neutrophils % 89 H Lymphocytes % 8 L Absolute Neutrophils ABG Methemoglobin 0.3 L VBG pH VBG pCO2 VBG pO2 71.3 H VBG HCO3 VBG Total CO2 VBG O2 Saturation 91.2 H VBG Base Excess Carboxyhemoglobin 3.2 H Total Hemoglobin 12.3 L POC Sodium Sodium POC Potassium Potassium Chloride Carbon Dioxide POC Total CO2 Anion Gap 7.0 L POC BUN BUN Creatinine Glucose POC Glucose Uric Acid Calcium POC WB Ioniz Calcium Phosphorus GGT Alkaline Phosphatase Globulin Triglycerides Beta-Hydroxybutyrate Urine Glucose (UA) Urine Ketones Ur Amphetamines Screen 06/11/20 06/11/20 06/11/20 19:09 19:09 16:21 WBC RBC Hgb Hct Plt Count Neut % (Auto) Lymph % (Auto) Lymph # (Auto) Seg Neutrophils % Lymphocytes % Absolute Neutrophils ABG Methemoglobin 0.3 L 0.3 L VBG pH 7.30 L VBG pCO2 36.4 L VBG pO2 145.9 H 86.5 H VBG HCO3 22.9 L 20.0 L VBG Total CO2 24.0 L 21.2 L VBG O2 Saturation 95.0 H 93.0 H VBG Base Excess -6 L Carboxyhemoglobin 3.9 H 3.5 H Total Hemoglobin 12.1 L 12.8 L POC Sodium Sodium 130 L POC Potassium Potassium Chloride Carbon Dioxide 21 L POC Total CO2 Anion Gap POC BUN BUN Creatinine Glucose POC Glucose Uric Acid Calcium POC WB Ioniz Calcium Phosphorus GGT Alkaline Phosphatase Globulin Triglycerides Beta-Hydroxybutyrate Urine Glucose (UA) Urine Ketones Ur Amphetamines Screen 06/11/20 06/11/20 06/11/20 16:21 16:20 11:50 WBC 13.8 H RBC 4.38 L Hgb 13.1 L Hct 39.6 L Plt Count Neut % (Auto) 89.3 H Lymph % (Auto) 7.3 L Lymph # (Auto) 1.00 L Seg Neutrophils % Lymphocytes % Absolute Neutrophils 12.31 H ABG Methemoglobin 0 L VBG pH 7.26 L VBG pCO2 27.2 L VBG pO2 128.9 H VBG HCO3 12.0 L VBG Total CO2 12.8 L VBG O2 Saturation 95.4 H VBG Base Excess -14 L Carboxyhemoglobin 3.5 H Total Hemoglobin 12.2 L POC Sodium Sodium 132 L POC Potassium Potassium Chloride Carbon Dioxide 20 L POC Total CO2 Anion Gap POC BUN BUN Creatinine Glucose POC Glucose Uric Acid Calcium POC WB Ioniz Calcium Phosphorus GGT Alkaline Phosphatase Globulin Triglycerides Beta-Hydroxybutyrate Urine Glucose (UA) Urine Ketones Ur Amphetamines Screen 06/11/20 06/11/20 06/11/20 11:50 06:57 04:18 WBC RBC Hgb Hct Plt Count Neut % (Auto) Lymph % (Auto) Lymph # (Auto) Seg Neutrophils % Lymphocytes % Absolute Neutrophils ABG Methemoglobin VBG pH VBG pCO2 VBG pO2 VBG HCO3 VBG Total CO2 VBG O2 Saturation VBG Base Excess Carboxyhemoglobin Total Hemoglobin POC Sodium Sodium 129 L POC Potassium Potassium Chloride Carbon Dioxide 12 L 15 L POC Total CO2 Anion Gap 18.0 H 17.0 H POC BUN BUN Creatinine Glucose 548 H* 250 H POC Glucose Uric Acid 8.1 H Calcium 7.0 L 8.0 L POC WB Ioniz Calcium Phosphorus 2.4 L GGT 4 L Alkaline Phosphatase 148 H 166 H Globulin Triglycerides 153 H Beta-Hydroxybutyrate Urine Glucose (UA) Urine Ketones Ur Amphetamines Screen Suspect positive A 06/11/20 06/11/20 06/11/20 04:18 02:33 02:33 WBC 17.8 H RBC Hgb Hct Plt Count 547 H Neut % (Auto) 84.6 H Lymph % (Auto) 11.4 L Lymph # (Auto) Seg Neutrophils % Lymphocytes % Absolute Neutrophils 15.05 H ABG Methemoglobin VBG pH VBG pCO2 VBG pO2 VBG HCO3 VBG Total CO2 VBG O2 Saturation VBG Base Excess Carboxyhemoglobin Total Hemoglobin POC Sodium Sodium 127 L POC Potassium Potassium 5.5 H Chloride 85 L Carbon Dioxide 7 L* POC Total CO2 Anion Gap 35.0 H POC BUN BUN 24 H Creatinine 1.4 H Glucose 765 H* POC Glucose Uric Acid Calcium POC WB Ioniz Calcium Phosphorus GGT Alkaline Phosphatase 190 H Globulin 3.8 H Triglycerides Beta-Hydroxybutyrate 10.80 H Urine Glucose (UA) >=500 A Urine Ketones 80 A Ur Amphetamines Screen 06/11/20 02:33 WBC RBC Hgb Hct Plt Count Neut % (Auto) Lymph % (Auto) Lymph # (Auto) Seg Neutrophils % Lymphocytes % Absolute Neutrophils ABG Methemoglobin VBG pH VBG pCO2 VBG pO2 VBG HCO3 VBG Total CO2 VBG O2 Saturation VBG Base Excess Carboxyhemoglobin Total Hemoglobin POC Sodium 127 L Sodium POC Potassium 5.4 H Potassium Chloride Carbon Dioxide POC Total CO2 10 L Anion Gap POC BUN 27 H BUN Creatinine Glucose POC Glucose > 700 H* Uric Acid Calcium POC WB Ioniz Calcium 1.07 L Phosphorus GGT Alkaline Phosphatase Globulin Triglycerides Beta-Hydroxybutyrate Urine Glucose (UA) Urine Ketones Ur Amphetamines Screen Meds: Medications Albuterol Sulfate (Albuterol Sulfate 2.5 Mg/3 Ml Nebulizer) 2.5 mg NEB Q2HP PRN PRN Reason: Shortness Of Breath Cetirizine HCl (Cetirizine 10 Mg Tablet) 10 mg PO DAILY [facility] Last Admin: 06/12/20 09:29 Dose: 10 mg Documented by: Dextrose (Dextrose 50% 50 Ml Vial) 0 ml IV UD PRN PRN Reason: Hypoglycemia Diagnostic Test (Pha) (Accu-Chek 1 Each Strip) 1 each FS Q1 [facility] Last Admin: 06/12/20 10:00 Dose: 1 each Documented by: Diagnostic Test (Pha) (Accu-Chek 1 Each Strip) 1 each FS [facility], [facility]1983 Doxycycline Hyclate (Doxycycline Hyclate 100 Mg Tablet.Orl) 100 mg PO BID [facility], [facility]; Protocol Enoxaparin Sodium (Enoxaparin 40 Mg/0.4 Ml Syringe) 40 mg SQ DAILY [facility] Last Admin: 06/12/20 09:15 Dose: 40 mg Documented by: Glucose (Dextrose 31 Gm Oral.Susp) 15 gm PO PRN PRN PRN Reason: Hypoglycemia Insulin Human Regular 50 unit/ (Sodium Chloride) 100 mls @ 0 mls/hr IV DUR [facility], [facility]; Protocol Last Titration: 06/12/20 10:00 Dose: 3.5 unit/hr, 7 mls/hr Documented by: Sodium Chloride (Sodium Chloride 0.9%) 250 mls @ 20 mls/hr IV .[id number] [facility] Last Admin: 06/12/20 00:25 Dose: 20 mls/hr Documented by: Dextrose/Sodium Chloride (Dextrose 5%-1/2ns Iv Solution) 1,000 mls @ 100 mls/hr IV .Q10H [facility] Last Admin: 06/12/20 10:55 Dose: Not Given Documented by: Insulin Glargine (Insulin Glargine, Human 1 Unit/0.01 Ml) 11 unit SQ BID [facility] Last Admin: 06/12/20 09:15 Dose: 11 unit Documented by: Insulin Human Lispro (Insulin Lispro 1 Unit/0.01 Ml Unit) 0 unit SQ [facility]; Protocol Insulin Human Lispro (Insulin Lispro 1 Unit/0.01 Ml Unit) 3 unit SQ [facility] Montelukast Sodium (Montelukast 10 Mg Tablet) 10 mg PO DAILY [facility] Last Admin: 06/12/20 09:15 Dose: 10 mg Documented by: Mupirocin (Mupirocin Oint 2% 22gm) 1 dose TOPICAL TID [facility] Last Admin: 06/12/20 09:22 Dose: 1 dose Documented by: Omeprazole (Omeprazole 20 Mg Capsule) 20 mg PO ACB [facility] Last Admin: 06/12/20 09:15 Dose: 20 mg Documented by: Ondansetron HCl (Ondansetron 4 Mg/2 Ml Vial) 4 mg IV Q4-6HP PRN; Protocol PRN Reason: Nausea And Vomiting Fluticasone Propionate [Flovent Diskus] 250 Mcg/Actuation Inhaler 1 dose INH BID [facility] Last Admin: 06/12/20 09:16 Dose: Not Given Documented by: Sodium Chloride (0.9 % Sodium Chloride 10 Ml Syringe) 10 ml IV Q8 [facility] Last Admin: 06/12/20 05:42 Dose: 10 ml Documented by: Trazodone HCl (Trazodone Hcl 50 Mg Tablet) 50 mg PO HS PRN PRN Reason: Insomnia ABG Interpretation ABG results: 06/11/20 06/11/20 06/11/20 11:50 16:21 19:09 ABG Methemoglobin 0 L 0.3 L 0.3 L VBG pH 7.26 L 7.30 L 7.42 VBG pCO2 27.2 L 41.1 36.4 L VBG pO2 128.9 H 86.5 H 145.9 H VBG HCO3 12.0 L 20.0 L 22.9 L VBG Total CO2 12.8 L 21.2 L 24.0 L VBG O2 Saturation 95.4 H 93.0 H 95.0 H VBG Base Excess -14 L -6 L -1 06/11/20 23:14 ABG Methemoglobin 0.3 L VBG pH 7.37 VBG pCO2 42.6 VBG pO2 71.3 H VBG HCO3 24.0 VBG Total CO2 25.3 VBG O2 Saturation 91.2 H VBG Base Excess -1 A/P Narrative A/P Narrative: Assessment: 39-year-old male diabetes mellitus type 1, MRSA ductions, asthma, history of previous IV drug use admitted for diabetic ketoacidosis probably because the patient ran out of insulin. #Diabetic ketoacidosis-resolved #Diabetes mellitus type I #Leukocytosis: improving, probably stress induced #Multiple small skin abscesses-probably from skin picking #MRSA colonization #Asthma-stable #TAMIKO-resolved w/ IV fluid #Substance use disorder w/ hx of IVDU Plan: -Keep in ICU today: transition from IV insulin to subcutaneous basal/bolus insulin regimen. -Monitor for DKA recurrence w/ subcutaneous insulin regimen. -Start Doxycycline BID for multiple soft tissue abscesses. -HIV screen -Zofran IV prn. -Telemetry -Monitor CBC and BMP -Follow pending blood culture -holding home lisinopril and acyclovir as well as nonessential meds. -DVT ppx: lovenox -Dispo: home when stable Time Spent With Patient Time: Total time spent is greater than 50% in coordination of care (as documented) at patient's floor/unit and/or counseling patient: QUALITY VTE Deep Vein Thrombosis/Pulmonary Embolism Present on Admission: No
[2020-06-12] MEDS: INSULIN LISPRO 1 UNIT/0.01 ML UNIT SQ SCH ×5 (12:01→20:53)
[2020-06-12 12:34] LABS: Blood Urea Nitrogen 8 mg/dL (6-20); Calcium 8.1 mg/dL (8.6-10.4); Carbon Dioxide 27 mmol/L (22-30); Chloride 98 mmol/L (96-108); Glomerular Filtration Rate 117; Glucose 246 mg/dL (70-105)
[2020-06-12] MEDS ORDERED: KETOROLAC 15 MG/ML VIAL IV PRN (15:15)
[2020-06-12] MEDS ORDERED: ACETAMINOPHEN 325 MG TABLET PO PRN (15:15)
--- NOTE | 2020-06-12 15:47 | XRay Report ---
CLINICAL INFORMATION: right rib pain COMPARISON: None. FINDINGS: T12 has short rudimentary ribs. There is an acute fracture of the anterior eighth rib. Right lung is well-expanded and clear with no evidence of pneumothorax or pleural effusion. IMPRESSION: Acute fracture anterior right eighth rib. Minimal displacement Interpreted and Authenticated by: Yomi Kaur 06/12/20
[2020-06-12] MEDS: DOXYCYCLINE HYCLATE 100 MG TABLET.ORL PO SCH (20:53)
[2020-06-13] MEDS: 0.9 % SODIUM CHLORIDE 10 ML SYRINGE IV SCH ×3 (05:19→20:45)
[2020-06-13 06:37] LABS: Hematocrit 37.1 % (41.0-55.0); Hemoglobin 12.1 g/dL (13.5-16.5); Mean Cell Volume 89.6 fL (80.0-100.0); Mean Corpuscular HGB Conc 32.6 g/dL (31.0-36.0); Mean Platelet Volume 8.9 fL (7.4-10.4); Platelet Count 223 K/mcL (140-440); RBC 4.14 M/mcL (4.50-5.90); Red Cell Distribution Width 13.1 % (11.5-14.5); WBC 5.9 K/mcL (4.5-11.0)
[2020-06-13 07:11] LABS: ALT/SGPT 12 U/L (<40); AST/SGOT 11 U/L (<40); Albumin 3.1 gm/dL (3.2-5.2); Alkaline Phosphatase 166 U/L (39-117); Bilirubin,Direct < 0.2 mg/dL (<0.3); Bilirubin,Total 0.6 mg/dL (0.1-1.0); Blood Urea Nitrogen 12 mg/dL (6-20); Carbon Dioxide 31 mmol/L (22-30); Chloride 97 mmol/L (96-108); Globulin 3.2 gm/dL (2.2-3.7); Glomerular Filtration Rate 125; Glucose 128 mg/dL (70-105); Lactate Dehydrogenase 147 U/L (135-225); Phosphorous 1.8 mg/dL (2.5-4.5); Triglycerides 149 mg/dL (<150); Uric Acid 2.5 mg/dL (2.5-8.0)
[2020-06-13] MEDS: INSULIN LISPRO 1 UNIT/0.01 ML UNIT SQ SCH ×7 (07:42→20:44)
[2020-06-13] MEDS: OMEPRAZOLE 20 MG CAPSULE PO SCH (07:43)
[2020-06-13 08:13] LABS: Band Neutrophils % 2 % (0-10); Basophils % (Manual) 1 % (0-2); Eosinophils % (Manual) 2 % (0-7); Lymphocytes % 12 % (15-49); Monocytes % (Manual) 5 % (1-12); Platelet Estimate NORMAL (Normal); RBC Morphology NORMAL (Normal); Segmented Neutrophils % 78 % (38-78)
[2020-06-13] MEDS: DOXYCYCLINE HYCLATE 100 MG TABLET.ORL PO SCH ×2 (08:30→20:44)
[2020-06-13] MEDS: ENOXAPARIN 40 MG/0.4 ML SYRINGE SQ SCH (08:30)
[2020-06-13] MEDS: MUPIROCIN OINT 2% 22GM TOPICAL SCH ×3 (08:30→20:43)
[2020-06-13] MEDS: INSULIN GLARGINE, HUMAN 1 UNIT/0.01 ML SQ SCH ×2 (08:30→20:45)
[2020-06-13] MEDS: FLUTICASONE PROPIONATE INH SCH ×2 (08:31→21:01)
[2020-06-13] MEDS: CETIRIZINE 10 MG TABLET PO SCH (08:31)
[2020-06-13] MEDS: MONTELUKAST 10 MG TABLET PO SCH (08:31)
[2020-06-13] MEDS ORDERED: NEUTRA PHOS 1 PACKET PO SCH (09:00)
[2020-06-13] MEDS ORDERED: ACETAMINOPHEN 325 MG TABLET PO PRN (12:00)
[2020-06-13] MEDS ORDERED: traZODone HCL 50 MG TABLET PO PRN (12:00)
[2020-06-13] MEDS ORDERED: ALBUTEROL SULFATE 2.5 MG/3 ML NEBULIZER NEB PRN (12:00)
[2020-06-13] MEDS ORDERED: DEXTROSE 50% 50 ML VIAL IV PRN (12:00)
[2020-06-13] MEDS ORDERED: KETOROLAC 15 MG/ML VIAL IV PRN (12:00)
[2020-06-13] MEDS ORDERED: ONDANSETRON 4 MG/2 ML VIAL IV PRN (12:00)
[2020-06-13] MEDS ORDERED: DEXTROSE 31 GM ORAL.SUSP PO PRN (12:00)
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
[2020-06-13] MEDS ORDERED: INSULIN LISPRO 1 UNIT/0.01 ML UNIT SQ SCH (17:00)
[2020-06-13] MEDS: IBUPROFEN 600 MG TABLET PO PRN (19:35)
[2020-06-13] MEDS: NEUTRA PHOS 1 PACKET PO SCH (20:44)
[2020-06-14] MEDS: 0.9 % SODIUM CHLORIDE 10 ML SYRINGE IV SCH ×3 (05:30→20:29)
[2020-06-14 06:38] LABS: Hematocrit 41.5 % (41.0-55.0); Hemoglobin 12.4 g/dL (13.5-16.5); Mean Cell Volume 98.6 fL (80.0-100.0); Mean Corpuscular HGB Conc 29.9 g/dL (31.0-36.0); Mean Platelet Volume 8.7 fL (7.4-10.4); Platelet Count 178 K/mcL (140-440); RBC 4.21 M/mcL (4.50-5.90); Red Cell Distribution Width 12.9 % (11.5-14.5); WBC 5.8 K/mcL (4.5-11.0)
[2020-06-14 07:19] LABS: ALT/SGPT 13 U/L (<40); AST/SGOT 20 U/L (<40); Albumin 2.8 gm/dL (3.2-5.2); Albumin/Globulin Ratio 0.8 (1.0-2.3); Alkaline Phosphatase 157 U/L (39-117); Bilirubin,Direct < 0.2 mg/dL (<0.3); Bilirubin,Total 0.2 mg/dL (0.1-1.0); Blood Urea Nitrogen 12 mg/dL (6-20); Calcium 8.3 mg/dL (8.6-10.4); Carbon Dioxide 28 mmol/L (22-30); Chloride 97 mmol/L (96-108); Globulin 3.7 gm/dL (2.2-3.7); Glomerular Filtration Rate 125; Glucose 196 mg/dL (70-105); Lactate Dehydrogenase 226 U/L (135-225); Phosphorous 3.5 mg/dL (2.5-4.5); Triglycerides 146 mg/dL (<150); Uric Acid 1.7 mg/dL (2.5-8.0)
[2020-06-14] MEDS: NEUTRA PHOS 1 PACKET PO SCH ×2 (08:15→20:28)
[2020-06-14] MEDS: ENOXAPARIN 40 MG/0.4 ML SYRINGE SQ SCH (08:15)
[2020-06-14] MEDS: MONTELUKAST 10 MG TABLET PO SCH (08:16)
[2020-06-14] MEDS: OMEPRAZOLE 20 MG CAPSULE PO SCH (08:16)
[2020-06-14] MEDS: CETIRIZINE 10 MG TABLET PO SCH (08:16)
[2020-06-14] MEDS: INSULIN LISPRO 1 UNIT/0.01 ML UNIT SQ SCH ×6 (08:17→20:27)
[2020-06-14] MEDS: INSULIN GLARGINE, HUMAN 1 UNIT/0.01 ML SQ SCH ×2 (08:19→20:30)
[2020-06-14] MEDS: MUPIROCIN OINT 2% 22GM TOPICAL SCH ×3 (08:24→20:28)
[2020-06-14 09:14] LABS: Band Neutrophils % 2 % (0-10); Eosinophils % (Manual) 10 % (0-7); Lymphocytes % 19 % (15-49); Monocytes % (Manual) 8 % (1-12); Platelet Estimate NORMAL (Normal); RBC Morphology NORMAL (Normal); Segmented Neutrophils % 61 % (38-78)
[2020-06-14] MEDS: FLUTICASONE PROPIONATE INH SCH ×2 (10:32→20:29)
[2020-06-14] MEDS: DOXYCYCLINE HYCLATE 100 MG TABLET.ORL PO SCH ×2 (10:33→20:28)
--- NOTE | 2020-06-14 10:53 | Internal Med Progress Note ---
SUBJECTIVE Subjective Patient information: Note initiated : 06/14/20 at 10:48 am Service Date, if different from initiated Date: [] Patient: Kelvin Plunkett 39 y/o M admitted on 06/11/20 for High Blood Sugar. Chief Complaint: [DKA] Interval history: Mr. Plunkett is a 39 year old diabetes mellitus type 1 diagnosed at age of 5, MRSA skin infections, asthma presented to the ED after 2 days of, nausea and vomiting and found to have diabetic ketoacidosis. Patient says that he ran out of insulin couple days ago. He denies recent fevers, shortness of breath, chest pain. The patient does have multiple skin infections consistent with his history of MRSA soft tissue skin infections. The patient has had IV drug use in the past but denies any recent drug use. Patient did have leukocytosis in the ED, no fevers documented. Patient was admitted to the ICU for DKA management. 06/12 DKA has resolved, transitioned to subcutaneous basal/bolus insulin. Started PO doxycycline for multiple skin abscesses. 06/13 More interactive today, scored low on cognitive evaluation consistent with recent traumatic brain injury. Small increase in prandial humalog, neutra phos. Transfer to med/surg, following to assist with discharge planning. 06/14 Probably near baseline now, working on discharge options for cognitive rehab which are limited. Likely discharge to long-term if possible, patient does not have a home and step father unwilling to take care of him. Constitutional Vitals: Vital Signs Temp Pulse Resp BP Pulse Ox 98.9 F 76 16 127/77 100 06/14/20 07:59 06/14/20 07:59 06/14/20 07:59 06/14/20 07:59 06/14/20 07:59 Period Temp Pulse Resp BP Sys/Wong Pulse Ox Last 24 Hr 97.6 F-98.9 F 76-110 16-20 110-130/67-80 95-100 Intake and Output 06/13/20 06/14/20 06/14/20 21:59 05:59 13:59 Intake Total 1560 1175 Output Total 925 1950 Balance 635 -775 Weight 68.583 kg Intake & Output: Intake & Output 06/13/20 06/14/20 06/14/20 21:59 05:59 13:59 Intake Total 1560 1175 Output Total 925 1950 Balance 635 -775 Weight 68.583 kg Intake: Oral 1560 1175 Output: Void Amount 925 1950 Other: Meal peanut butter x1 & cheese stick x1 Egg salad & crackers Percent of Meal Consumed 100% 100% Feeding Ability Independent Independent Urine Appearance Clear Clear Urine Color Bright Yellow Bright Yellow Urine Odor Normal Stool Size Small Stool Consistency Formed # Voids 1 # Bowel Movements 1 Additional findings Additional findings: Head: Atraumatic, normal inspection. Eyes: normal appearance, no scleral icterus. Neck: full ROM Respiratory: no respiratory distress. Cardiovascular: normal rate and rhythm, S1, S2. GI/Abdominal: soft, nontender, no guarding. Extremities: full range of motion, nontender. Neurological: CN II-XII intact, intact motor, intact sensation. Psychiatric: normal mood. Skin: warm, normal color OBJ DATA Labs CBC & Chem 7: 06/14/20 05:53 06/14/20 05:53 Labs: Abnormal Lab Results 06/14/20 06/14/20 06/13/20 05:53 05:53 05:27 WBC RBC 4.21 L Hgb 12.4 L Hct MCHC 29.9 L Neut % (Auto) Lymph % (Auto) Lymph # (Auto) Seg Neutrophils % Lymphocytes % Eosinophils % (Manual) 10 H Absolute Neutrophils ABG Methemoglobin VBG pH VBG pCO2 VBG pO2 VBG HCO3 VBG Total CO2 VBG O2 Saturation VBG Base Excess Carboxyhemoglobin Total Hemoglobin Sodium 132 L Carbon Dioxide 31 H Anion Gap 4.0 L Creatinine 0.6 L 0.6 L Glucose 196 H 128 H Uric Acid 1.7 L Calcium 8.3 L 8.0 L Phosphorus 1.8 L GGT 5 L 5 L Alkaline Phosphatase 157 H 166 H Lactate Dehydrogenase 226 H Albumin 2.8 L 3.1 L Albumin/Globulin Ratio 0.8 L Triglycerides 06/13/20 06/12/20 06/12/20 05:27 10:48 04:53 WBC 12.6 H RBC 4.14 L 4.14 L Hgb 12.1 L 12.5 L Hct 37.1 L 37.7 L MCHC Neut % (Auto) Lymph % (Auto) Lymph # (Auto) Seg Neutrophils % 89 H Lymphocytes % 12 L 8 L Eosinophils % (Manual) Absolute Neutrophils ABG Methemoglobin VBG pH VBG pCO2 VBG pO2 VBG HCO3 VBG Total CO2 VBG O2 Saturation VBG Base Excess Carboxyhemoglobin Total Hemoglobin Sodium Carbon Dioxide Anion Gap Creatinine Glucose 246 H Uric Acid Calcium 8.1 L Phosphorus GGT Alkaline Phosphatase Lactate Dehydrogenase Albumin Albumin/Globulin Ratio Triglycerides 06/11/20 06/11/20 06/11/20 23:15 23:14 19:09 WBC RBC Hgb Hct MCHC Neut % (Auto) Lymph % (Auto) Lymph # (Auto) Seg Neutrophils % Lymphocytes % Eosinophils % (Manual) Absolute Neutrophils ABG Methemoglobin 0.3 L 0.3 L VBG pH VBG pCO2 36.4 L VBG pO2 71.3 H 145.9 H VBG HCO3 22.9 L VBG Total CO2 24.0 L VBG O2 Saturation 91.2 H 95.0 H VBG Base Excess Carboxyhemoglobin 3.2 H 3.9 H Total Hemoglobin 12.3 L 12.1 L Sodium Carbon Dioxide Anion Gap 7.0 L Creatinine Glucose Uric Acid Calcium Phosphorus GGT Alkaline Phosphatase Lactate Dehydrogenase Albumin Albumin/Globulin Ratio Triglycerides 06/11/20 06/11/20 06/11/20 19:09 16:21 16:21 WBC RBC Hgb Hct MCHC Neut % (Auto) Lymph % (Auto) Lymph # (Auto) Seg Neutrophils % Lymphocytes % Eosinophils % (Manual) Absolute Neutrophils ABG Methemoglobin 0.3 L VBG pH 7.30 L VBG pCO2 VBG pO2 86.5 H VBG HCO3 20.0 L VBG Total CO2 21.2 L VBG O2 Saturation 93.0 H VBG Base Excess -6 L Carboxyhemoglobin 3.5 H Total Hemoglobin 12.8 L Sodium 130 L 132 L Carbon Dioxide 21 L 20 L Anion Gap Creatinine Glucose Uric Acid Calcium Phosphorus GGT Alkaline Phosphatase Lactate Dehydrogenase Albumin Albumin/Globulin Ratio Triglycerides 06/11/20 06/11/20 06/11/20 16:20 11:50 11:50 WBC 13.8 H RBC 4.38 L Hgb 13.1 L Hct 39.6 L MCHC Neut % (Auto) 89.3 H Lymph % (Auto) 7.3 L Lymph # (Auto) 1.00 L Seg Neutrophils % Lymphocytes % Eosinophils % (Manual) Absolute Neutrophils 12.31 H ABG Methemoglobin 0 L VBG pH 7.26 L VBG pCO2 27.2 L VBG pO2 128.9 H VBG HCO3 12.0 L VBG Total CO2 12.8 L VBG O2 Saturation 95.4 H VBG Base Excess -14 L Carboxyhemoglobin 3.5 H Total Hemoglobin 12.2 L Sodium 129 L Carbon Dioxide 12 L Anion Gap 18.0 H Creatinine Glucose 548 H* Uric Acid 8.1 H Calcium 7.0 L Phosphorus 2.4 L GGT 4 L Alkaline Phosphatase 148 H Lactate Dehydrogenase Albumin Albumin/Globulin Ratio Triglycerides 153 H Meds: Medications Acetaminophen (Acetaminophen 325 Mg Tablet) 650 mg PO Q4HP PRN; Protocol PRN Reason: Per Pain Protocol Albuterol Sulfate (Albuterol Sulfate 2.5 Mg/3 Ml Nebulizer) 2.5 mg NEB Q2HP PRN PRN Reason: Shortness Of Breath Cetirizine HCl (Cetirizine 10 Mg Tablet) 10 mg PO DAILY [facility] Last Admin: 06/14/20 08:16 Dose: 10 mg Documented by: Dextrose (Dextrose 50% 50 Ml Vial) 0 ml IV UD PRN PRN Reason: Hypoglycemia Diagnostic Test (Pha) (Accu-Chek 1 Each Strip) 1 each FS [facility] Last Admin: 06/14/20 08:17 Dose: 1 each Documented by: Doxycycline Hyclate (Doxycycline Hyclate 100 Mg Tablet.Orl) 100 mg PO BID [facility]; Protocol Last Admin: 06/14/20 10:33 Dose: 100 mg Documented by: Enoxaparin Sodium (Enoxaparin 40 Mg/0.4 Ml Syringe) 40 mg SQ DAILY [facility] Last Admin: 06/14/20 08:15 Dose: 40 mg Documented by: Glucose (Dextrose 31 Gm Oral.Susp) 15 gm PO PRN PRN PRN Reason: Hypoglycemia Ibuprofen (Ibuprofen 600 Mg Tablet) 600 mg PO Q6HP PRN; Protocol PRN Reason: Fever Or Pain Last Admin: 06/13/20 19:35 Dose: 600 mg Documented by: Insulin Glargine (Insulin Glargine, Human 1 Unit/0.01 Ml) 11 unit SQ BID [facility] Last Admin: 06/14/20 08:19 Dose: 3 units Documented by: Insulin Human Lispro (Insulin Lispro 1 Unit/0.01 Ml Unit) 0 unit SQ [facility]; Protocol Last Admin: 06/14/20 08:18 Dose: 3 units Documented by: Insulin Human Lispro (Insulin Lispro 1 Unit/0.01 Ml Unit) 4 unit SQ AC [facility] Last Admin: 06/14/20 08:17 Dose: 4 units Documented by: Montelukast Sodium (Montelukast 10 Mg Tablet) 10 mg PO DAILY [facility] Last Admin: 06/14/20 08:16 Dose: 10 mg Documented by: Mupirocin (Mupirocin Oint 2% 22gm) 1 dose TOPICAL TID [facility] Last Admin: 06/14/20 08:24 Dose: 1 dose Documented by: Omeprazole (Omeprazole 20 Mg Capsule) 20 mg PO ACB [facility] Last Admin: 06/14/20 08:16 Dose: 20 mg Documented by: Ondansetron HCl (Ondansetron 4 Mg/2 Ml Vial) 4 mg IV Q4-6HP PRN; Protocol PRN Reason: Nausea And Vomiting Fluticasone Propionate [Flovent Diskus] 250 Mcg/Actuation Inhaler 1 dose INH BID [facility] Last Admin: 06/14/20 10:32 Dose: Not Given Documented by: Potassium/Phosphorus/Sodium (Neutra Phos 1 Packet) 2 packet PO BID [facility] Stop: 06/15/20 08:59 Last Admin: 06/14/20 08:15 Dose: 2 packet Documented by: Sodium Chloride (0.9 % Sodium Chloride 10 Ml Syringe) 10 ml IV Q8 [facility] Last Admin: 06/14/20 05:30 Dose: 10 ml Documented by: Trazodone HCl (Trazodone Hcl 50 Mg Tablet) 50 mg PO HS PRN PRN Reason: Insomnia ABG Interpretation ABG results: 06/11/20 06/11/20 06/11/20 11:50 16:21 19:09 ABG Methemoglobin 0 L 0.3 L 0.3 L VBG pH 7.26 L 7.30 L 7.42 VBG pCO2 27.2 L 41.1 36.4 L VBG pO2 128.9 H 86.5 H 145.9 H VBG HCO3 12.0 L 20.0 L 22.9 L VBG Total CO2 12.8 L 21.2 L 24.0 L VBG O2 Saturation 95.4 H 93.0 H 95.0 H VBG Base Excess -14 L -6 L -1 06/11/20 23:14 ABG Methemoglobin 0.3 L VBG pH 7.37 VBG pCO2 42.6 VBG pO2 71.3 H VBG HCO3 24.0 VBG Total CO2 25.3 VBG O2 Saturation 91.2 H VBG Base Excess -1 A/P Narrative A/P Narrative: Assessment: 39-year-old male diabetes mellitus type 1, MRSA ductions, asthma, history of previous IV drug use admitted for diabetic ketoacidosis probably because the patient ran out of insulin. The patient was treated with IV insulin and IV fluid and eventually transitioned back to subcutaneous basal/bolus insulin. Subsequent collateral information (outside hospital documents and from his step father) revealed that the patient was hospitalized for DKA and an ep idural hematoma secondary to head trauma in March 2020. The patient had emergent surgical intervention for the epidural hematoma. According to available documents the patient initially had significant cognitive impairment and was impulsive but that reportedly improved. He was discharged to his step father's house and recommended outpatient rehab. According to his step father, the patient had significant cognitive changes after discharge and has not recovered to his previous baseline. He has been in trouble with law enforcement and reportedly currently on parole. Cognitive assessment here at [facility] suggests the patient has at least moderate cognitive impairment raising concern of traumatic brain injury from the accident in March. As the patient approaches medical stability, care is now focussing on discharge planning options as the patient's step father is no longer willing to have the patient stay with him. #Diabetic ketoacidosis-resolved #Diabetes mellitus type I-poorly controlled #Acute right 8th rib fracture #Multiple small skin abscesses-probably from skin picking #MRSA colonization #Asthma-stable #TAMIKO-resolved w/ IV fluid #Substance use disorder w/ hx of IVDU #Epidural hematoma s/p Fany hole: March 2020 #Cognitive impairment: possible traumatic brain injury Plan: -Working on discharge planning. -Lantus 11 units BID, preprandial Humalog 4 units and SSI. -Doxycycline BID for multiple soft tissue abscesses-treat 5-10 days. -Tylenol and Ibuprofen prn, avoid opioids if possible. -Incentive spirometry. -Zofran IV prn. -Monitor CBC and BMP -Follow blood culture-NGTD -Home lisinopril (probably for microalbuminuria w/ DM I) -holding home acyclovir (takes prn for herpes) as well as nonessential meds. -DVT ppx: lovenox -Dispo: probably home then back to senior living unless a rehab option can be found for cognitive impairment Time Spent With Patient Time: Total time spent is greater than 50% in coordination of care (as documented) at patient's floor/unit and/or counseling patient: [facility]AL[facility] VTE Deep Vein Thrombosis/Pulmonary Embolism Present on Admission: No
--- NOTE | 2020-06-14 12:28 | Discharge Summary ---
Discharge Provider Provider Patient information: Note initiated : 06/14/20 at 12:26 pm Service Date, if different from initiated Date: [] Patient: Kelvin Plunkett 39 y/o M admitted on 06/11/20 for High Blood Sugar. Chief Complaint: [] Date of admission: 06/11/20 11:09 Discharge date: 06/14/20 Consults: 06/11/20 Consult to Physician [CONS] Stat Comment: Consulting Provider: Adrien Oleary Reason For Exam: Physician to Consult Discharge Meds Discharge Medications Home Medications albuterol sulfate [Ventolin HFA] 2 puff INH Q4HP PRN 04/01/18 [History Confirmed 06/11/20 Last Taken 06/10/20] insulin aspart U-100 [Novolog U-100 Insulin aspart] 1 unit SQ QDAY 04/01/18 [History Confirmed 06/11/20 Last Taken 06/09/20] lisinopril 2.5 mg PO DAILY 04/01/18 [History Confirmed 06/11/20 Last Taken 06/10/20] omeprazole 20 mg PO QDAY 04/01/18 [History Confirmed 06/11/20 Last Taken Unknown] trazodone 50 mg PO HS 04/01/18 [History Confirmed 06/11/20 Last Taken Unknown] Flovent Diskus 1 inh INHALATION BID 06/11/20 [History Confirmed 06/11/20 Last Taken Unknown] acyclovir 200 mg PO BID 06/11/20 [History Confirmed 06/11/20 Last Taken Unknown] cetirizine 10 mg PO DAILY 06/11/20 [History Confirmed 06/11/20 Last Taken Unknown] fluticasone propionate 2 spray INTRANASAL DAILY 06/11/20 [History Confirmed 06/11/20 Last Taken Unknown] gabapentin 600 mg PO BID 06/11/20 [History Confirmed 06/11/20 Last Taken Unknown] hydrocortisone 1 applic TOPICAL DAILY 06/11/20 [History Confirmed 06/11/20 Last Taken Unknown] ibuprofen 600 mg PO Q6HP PRN 06/11/20 [History Confirmed 06/11/20 Last Taken Unknown] lancets [Microlet Lancet] 06/11/20 [History Confirmed 06/11/20 Last Taken Unkn own] montelukast 10 mg PO DAILY 06/11/20 [History Confirmed 06/11/20 Last Taken Unknown] mupirocin 1 applic TOPICAL TID 06/11/20 [History Confirmed 06/11/20 Last Taken Unknown] Lantus U-100 Insulin 11 unit SUBCUT BID #10 ml 06/14/20 [Rx Last Taken Unknown] doxycycline hyclate 100 mg PO BID #8 tab 06/14/20 [Rx Last Taken Unknown] COURSE Hospital Course Hospital course: Interval history: Mr. Plunkett is a 39 year old diabetes mellitus type 1 diagnosed at age of 5, MRSA skin infections, asthma presented to the ED after 2 days of, nausea and vomiting and found to have diabetic ketoacidosis. Patient says that he ran out of insulin couple days ago. He denies recent fevers, shortness of breath, chest pain. The patient does have multiple skin infections consistent with his history of MRSA soft tissue skin infections. The patient has had IV drug use in the past but denies any recent drug use. Patient did have leukocytosis in the ED, no fevers documented. Patient was admitted to the ICU for DKA management. 06/12 DKA has resolved, transitioned to subcutaneous basal/bolus insulin. Started PO doxycycline for multiple skin abscesses. 06/13 More interactive today, scored low on cognitive evaluation consistent with recent traumatic brain injury. Small increase in prandial humalog, neutra phos. Transfer to med/surg, following to assist with discharge planning. 06/14 Probably near baseline now, working on discharge options for cognitive rehab which are limited. Likely discharge to longterm if possible, patient does not have a home and step father unwilling to take care of him. *No rehab option for discharge. #Diabetic ketoacidosis-resolved #Diabetes mellitus type I-poorly controlled #Acute right 8th rib fracture #Multiple small skin abscesses-probably from skin picking #MRSA colonization #Asthma-stable #TAMIKO-resolved w/ IV fluid #Substance use disorder w/ hx of IVDU #Epidural hematoma s/p Fany hole: March 2020 #Cognitive impairment: possible traumatic brain injury Discharge diagnosis: DKA asthma acute kidney injury Secondary discharge diagnosis: Cognitive impairment Time Spent with Patient Time attestation: Total time spent providing and/or coordinating discharge services: Time spent: Greater than 30 minutes EXAM Constitutional Vitals: Temp Pulse Resp BP Pulse Ox 99.0 F 72 16 115/61 100 06/14/20 11:38 06/14/20 11:38 06/14/20 11:38 06/14/20 11:38 06/14/20 11:38 Discharge Data Data Completed and Pending Labs on day of discharge: Labs from last 24 hours 06/14/20 06/14/20 05:53 05:53 WBC 5.8 RBC 4.21 L Hgb 12.4 L Hct 41.5 MCV 98.6 MCH 29.5 MCHC 29.9 L RDW 12.9 Plt Count 178 MPV 8.7 Seg Neutrophils % 61 Band Neutrophils % 2 Lymphocytes % 19 Monocytes % (Manual) 8 Eosinophils % (Manual) 10 H Platelet Estimate Normal RBC Morphology Normal Sodium 134 Potassium 4.3 Chloride 97 Carbon Dioxide 28 Anion Gap 9.0 BUN 12 Creatinine 0.6 L GFR Calculation 125 Glucose 196 H Uric Acid 1.7 L Calcium 8.3 L Phosphorus 3.5 Magnesium 1.7 Total Bilirubin 0.2 Direct Bilirubin < 0.2 GGT 5 L AST 20 ALT 13 Alkaline Phosphatase 157 H Lactate Dehydrogenase 226 H Total Protein 6.5 Albumin 2.8 L Globulin 3.7 Albumin/Globulin Ratio 0.8 L Triglycerides 146 Preliminary micro results at discharge 06/11/20 14:38 Blood Culture - Preliminary Blood 06/11/20 14:15 Blood Culture - Preliminary Blood Discharge Plan Patient/Caregiver Discharge Instructions Activity: increase activity as tolerated Diet: Consistent Carbohydrate Activity Restrictions/Additional Instructions: Follow-up with PCP in 3 to 7 days. Prescriptions: New doxycycline hyclate 100 mg Tablet 100 mg PO BID Qty: 8 RF: 0 Continued trazodone 50 MG tablet 50 mg PO HS RF: 0 insulin aspart U-100 [Novolog U-100 Insulin aspart] 100 UNIT/ML solution 1 unit SQ QDAY RF: 0 omeprazole 20 MG capsule,delayed release(DR/EC) 20 mg PO QDAY RF: 0 albuterol sulfate [Ventolin HFA] 1 PUFF HFA aerosol inhaler 2 puff INH Q4HP PRN (Reason: Shortness Of Breath) RF: 0 lisinopril 2.5 MG tablet 2.5 mg PO DAILY RF: 0 Flovent Diskus 250 mcg/actuation blister with device 1 inh INHALATION BID RF: 0 fluticasone propionate 50 mcg/actuation spray,suspension 2 spray INTRANASAL DAILY RF: 0 gabapentin 600 mg tablet 600 mg PO BID RF: 0 hydrocortisone 1 % cream 1 applic topical DAILY RF: 0 montelukast 10 mg tablet 10 mg PO DAILY RF: 0 mupirocin 2 % ointment 1 applic TOPICAL TID RF: 0 ibuprofen 600 mg tablet 600 mg PO Q6HP PRN (Reason: Fever Or Pain) RF: 0 (DME) lancets [Microlet Lancet] Misc MISCELLANEOUS RF: 0 acyclovir 200 mg capsule 200 mg PO BID RF: 0 cetirizine 10 mg Tablet 10 mg PO DAILY RF: 0 Changed Lantus U-100 Insulin 1 UNIT/0.01 ML solution 11 unit subcut BID Qty: 10 RF: 0 Follow Up Plan Patient Disposition: Home, Self-Care Prognosis: Fair Rehab Potential: Undetermined Overall status at discharge: patient is progressing back to baseline Discharge Orders: Discharge Order (Routine); Ordered 06/14/20 Ordered By: Jake Marquez [facility] VTE Deep Vein Thrombosis/Pulmonary Embolism Present on Admission: No
[2020-06-14] MEDS ORDERED: INSULIN LISPRO 1 UNIT/0.01 ML UNIT SQ ONE (14:05)
[2020-06-14] MEDS ORDERED: INSULIN GLARGINE, HUMAN 1 UNIT/0.01 ML SQ ONE (14:12)
[2020-06-14] MEDS ORDERED: DEXTROSE 50% 50 ML VIAL IV PRN (14:13)
[2020-06-14] MEDS ORDERED: DEXTROSE 31 GM ORAL.SUSP PO PRN (14:13)
--- NOTE | 2020-06-14 14:13 | Internal Med Progress Note ---
SUBJECTIVE Subjective Patient information: Note initiated : 06/14/20 at 2:06 pm Service Date, if different from initiated Date: [] Patient: Kelvin Plunkett 39 y/o M admitted on 06/11/20 for High Blood Sugar. Chief Complaint: [] Interval history: Mr. Plunkett is a 39 year old diabetes mellitus type 1 diagnosed at age of 5, MRSA skin infections, asthma presented to the ED after 2 days of, nausea and vomiting and found to have diabetic ketoacidosis. Patient says that he ran out of insulin couple days ago. He denies recent fevers, shortness of breath, chest pain. The patient does have multiple skin infections consistent with his history of MRSA soft tissue skin infections. The patient has had IV drug use in the past but denies any recent drug use. Patient did have leukocytosis in the ED, no fevers documented. Patient was admitted to the ICU f or DKA management. 06/12 DKA has resolved, transitioned to subcutaneous basal/bolus insulin. Started PO doxycycline for multiple skin abscesses. 06/13 More interactive today, scored low on cognitive evaluation consistent with recent traumatic brain injury. Small increase in prandial humalog, neutra phos. Transfer to med/surg, following to assist with discharge planning. 06/14 Probably near baseline now, working on discharge options for cognitive rehab which are limited. [facility] prison if possible, patient does not have a home and step father unwilling to take care of him. patients BG went up to 430 then >500. Will attempt to ascertain if patient eating nondiabetic approved foods. Will not discharge today in order to better control his diabetes and adjust home regimen as needed. 06/15 Constitutional Vitals: Vital Signs Temp Pulse Resp BP Pulse Ox 99.0 F 72 16 115/61 100 06/14/20 11:38 06/14/20 11:38 06/14/20 11:38 06/14/20 11:38 06/14/20 11:38 Period Temp Pulse Resp BP Sys/Wong Pulse Ox Last 24 Hr 97.6 F-99.0 F 72-100 16-20 112-130/61-80 95-100 Intake and Output 06/14/20 06/14/20 06/14/20 05:59 13:59 21:59 Intake Total 1175 Output Total 1950 Balance -775 Weight 68.492 kg Patient Weight 06/15/20 05:59 Weight 68.492 kg Intake & Output: Intake & Output 06/14/20 06/14/20 06/14/20 05:59 13:59 21:59 Intake Total 1175 Output Total 1950 Balance -775 Weight 68.492 kg Intake: Oral 1175 Output: Void Amount 1950 Other: Meal Egg salad & crackers Percent of Meal Consumed 100% Feeding Ability Independent Urine Appearance Clear Clear Urine Color Bright Yellow Bright Yellow Urine Odor Normal Stool Size Small Small Stool Consistency Formed Formed # Bowel Movements 1 Exam: General: Alert, Awake, No acute Distress Eyes/N/T: EOMI, Head/Neck: neck supple, CV: RRR, No murmurs, Pulm: Clear b/l, no wheezing/rhonchi/rales Abd: soft, nontender, +BS x4 Ext: no clubbing/cyanosis/edema Neuro: Alert, no focal deficits, moves all extremities, Skin: warm/dry OBJ DATA Labs CBC & Chem 7: 06/14/20 05:53 06/15/20 05:25 Labs: Abnormal Lab Results 06/14/20 06/14/20 06/13/20 05:53 05:53 05:27 WBC RBC 4.21 L Hgb 12.4 L Hct MCHC 29.9 L Neut % (Auto) Lymph % (Auto) Lymph # (Auto) Seg Neutrophils % Lymphocytes % Eosinophils % (Manual) 10 H Absolute Neutrophils ABG Methemoglobin VBG pH VBG pCO2 VBG pO2 VBG HCO3 VBG Total CO2 VBG O2 Saturation VBG Base Excess Carboxyhemoglobin Total Hemoglobin Sodium 132 L Carbon Dioxide 31 H Anion Gap 4.0 L Creatinine 0.6 L 0.6 L Glucose 196 H 128 H Uric Acid 1.7 L Calcium 8.3 L 8.0 L Phosphorus 1.8 L GGT 5 L 5 L Alkaline Phosphatase 157 H 166 H Lactate Dehydrogenase 226 H Albumin 2.8 L 3.1 L Albumin/Globulin Ratio 0.8 L Triglycerides 06/13/20 06/12/20 06/12/20 05:27 10:48 04:53 WBC 12.6 H RBC 4.14 L 4.14 L Hgb 12.1 L 12.5 L Hct 37.1 L 37.7 L MCHC Neut % (Auto) Lymph % (Auto) Lymph # (Auto) Seg Neutrophils % 89 H Lymphocytes % 12 L 8 L Eosinophils % (Manual) Absolute Neutrophils ABG Methemoglobin VBG pH VBG pCO2 VBG pO2 VBG HCO3 VBG Total CO2 VBG O2 Saturation VBG Base Excess Carboxyhemoglobin Total Hemoglobin Sodium Carbon Dioxide Anion Gap Creatinine Glucose 246 H Uric Acid Calcium 8.1 L Phosphorus GGT Alkaline Phosphatase Lactate Dehydrogenase Albumin Albumin/Globulin Ratio Triglycerides 06/11/20 06/11/20 06/11/20 23:15 23:14 19:09 WBC RBC Hgb Hct MCHC Neut % (Auto) Lymph % (Auto) Lymph # (Auto) Seg Neutrophils % Lymphocytes % Eosinophils % (Manual) Absolute Neutrophils ABG Methemoglobin 0.3 L 0.3 L VBG pH VBG pCO2 36.4 L VBG pO2 71.3 H 145.9 H VBG HCO3 22.9 L VBG Total CO2 24.0 L VBG O2 Saturation 91.2 H 95.0 H VBG Base Excess Carboxyhemoglobin 3.2 H 3.9 H Total Hemoglobin 12.3 L 12.1 L Sodium Carbon Dioxide Anion Gap 7.0 L Creatinine Glucose Uric Acid Calcium Phosphorus GGT Alkaline Phosphatase Lactate Dehydrogenase Albumin Albumin/Globulin Ratio Triglycerides 06/11/20 06/11/20 06/11/20 19:09 16:21 16:21 WBC RBC Hgb Hct MCHC Neut % (Auto) Lymph % (Auto) Lymph # (Auto) Seg Neutrophils % Lymphocytes % Eosinophils % (Manual) Absolute Neutrophils ABG Methemoglobin 0.3 L VBG pH 7.30 L VBG pCO2 VBG pO2 86.5 H VBG HCO3 20.0 L VBG Total CO2 21.2 L VBG O2 Saturation 93.0 H VBG Base Excess -6 L Carboxyhemoglobin 3.5 H Total Hemoglobin 12.8 L Sodium 130 L 132 L Carbon Dioxide 21 L 20 L Anion Gap Creatinine Glucose Uric Acid Calcium Phosphorus GGT Alkaline Phosphatase Lactate Dehydrogenase Albumin Albumin/Globulin Ratio Triglycerides 06/11/20 06/11/20 16:20 11:50 WBC 13.8 H RBC 4.38 L Hgb 13.1 L Hct 39.6 L MCHC Neut % (Auto) 89.3 H Lymph % (Auto) 7.3 L Lymph # (Auto) 1.00 L Seg Neutrophils % Lymphocytes % Eosinophils % (Manual) Absolute Neutrophils 12.31 H ABG Methemoglobin VBG pH VBG pCO2 VBG pO2 VBG HCO3 VBG Total CO2 VBG O2 Saturation VBG Base Excess Carboxyhemoglobin Total Hemoglobin Sodium Carbon Dioxide 12 L Anion Gap Creatinine Glucose 548 H* Uric Acid 8.1 H Calcium 7.0 L Phosphorus 2.4 L GGT 4 L Alkaline Phosphatase 148 H Lactate Dehydrogenase Albumin Albumin/Globulin Ratio Triglycerides 153 H Meds: Medications Acetaminophen (Acetaminophen 325 Mg Tablet) 650 mg PO Q4HP PRN; Protocol PRN Reason: Per Pain Protocol Albuterol Sulfate (Albuterol Sulfate 2.5 Mg/3 Ml Nebulizer) 2.5 mg NEB Q2HP PRN PRN Reason: Shortness Of Breath Cetirizine HCl (Cetirizine 10 Mg Tablet) 10 mg PO DAILY [facility] Last Admin: 06/14/20 08:16 Dose: 10 mg Documented by: Dextrose (Dextrose 50% 50 Ml Vial) 0 ml IV UD PRN PRN Reason: Hypoglycemia Diagnostic Test (Pha) (Accu-Chek 1 Each Strip) 1 each FS [facility] Last Admin: 06/14/20 10:54 Dose: 1 each Documented by: Doxycycline Hyclate (Doxycycline Hyclate 100 Mg Tablet.Orl) 100 mg PO BID [facility]; Protocol Last Admin: 06/14/20 10:33 Dose: 100 mg Documented by: Enoxaparin Sodium (Enoxaparin 40 Mg/0.4 Ml Syringe) 40 mg SQ DAILY [facility] Last Admin: 06/14/20 08:15 Dose: 40 mg Documented by: Glucose (Dextrose 31 Gm Oral.Susp) 15 gm PO PRN PRN PRN Reason: Hypoglycemia Ibuprofen (Ibuprofen 600 Mg Tablet) 600 mg PO Q6HP PRN; Protocol PRN Reason: Fever Or Pain Last Admin: 06/13/20 19:35 Dose: 600 mg Documented by: Insulin Glargine (Insulin Glargine, Human 1 Unit/0.01 Ml) 11 unit SQ BID [facility] Last Admin: 06/14/20 08:19 Dose: 3 units Documented by: Insulin Human Lispro (Insulin Lispro 1 Unit/0.01 Ml Unit) 0 unit SQ [facility]; Protocol Last Admin: 06/14/20 11:03 Dose: 10 units Documented by: Insulin Human Lispro (Insulin Lispro 1 Unit/0.01 Ml Unit) 4 unit SQ [facility] Last Admin: 06/14/20 11:03 Dose: 4 units Documented by: Insulin Human Lispro (Insulin Lispro 1 Unit/0.01 Ml Unit) 10 unit SQ NOW ONE; Protocol Stop: 06/14/20 14:06 Lisinopril (Lisinopril 2.5 Mg Tablet) 2.5 mg PO DAILY [facility] Montelukast Sodium (Montelukast 10 Mg Tablet) 10 mg PO DAILY [facility] Last Admin: 06/14/20 08:16 Dose: 10 mg Documented by: Mupirocin (Mupirocin Oint 2% 22gm) 1 dose TOPICAL TID [facility] Last Admin: 06/14/20 08:24 Dose: 1 dose Documented by: Omeprazole (Omeprazole 20 Mg Capsule) 20 mg PO ACB [facility] Last Admin: 06/14/20 08:16 Dose: 20 mg Documented by: Ondansetron HCl (Ondansetron 4 Mg/2 Ml Vial) 4 mg IV Q4-6HP PRN; Protocol PRN Reason: Nausea And Vomiting Fluticasone Propionate [Flovent Diskus] 250 Mcg/Actuation Inhaler 1 dose INH BID [facility] Last Admin: 06/14/20 10:32 Dose: Not Given Documented by: Potassium/Phosphorus/Sodium (Neutra Phos 1 Packet) 2 packet PO BID [facility] Stop: 06/15/20 08:59 Last Admin: 06/14/20 08:15 Dose: 2 packet Documented by: Sodium Chloride (0.9 % Sodium Chloride 10 Ml Syringe) 10 ml IV Q8 [facility] Last Admin: 06/14/20 05:30 Dose: 10 ml Documented by: Trazodone HCl (Trazodone Hcl 50 Mg Tablet) 50 mg PO HS PRN PRN Reason: Insomnia ABG Interpretation ABG results: 06/11/20 06/11/20 06/11/20 11:50 16:21 19:09 ABG Methemoglobin 0 L 0.3 L 0.3 L VBG pH 7.26 L 7.30 L 7.42 VBG pCO2 27.2 L 41.1 36.4 L VBG pO2 128.9 H 86.5 H 145.9 H VBG HCO3 12.0 L 20.0 L 22.9 L VBG Total CO2 12.8 L 21.2 L 24.0 L VBG O2 Saturation 95.4 H 93.0 H 95.0 H VBG Base Excess -14 L -6 L -1 06/11/20 23:14 ABG Methemoglobin 0.3 L VBG pH 7.37 VBG pCO2 42.6 VBG pO2 71.3 H VBG HCO3 24.0 VBG Total CO2 25.3 VBG O2 Saturation 91.2 H VBG Base Excess -1 A/P Narrative A/P Narrative: Assessment: #DKA: #DM I: poorly controlled. A1c #Acute right 8th rib fracture: #Multiple small skin abscesses: probably from skin picking -MRSA colonization #Asthma: stable #TAMIKO : resolved w/ IV fluid #Substance use disorder w/ hx of IVDU: #h/o Epidural hematoma s/p Fany hole (March 2020): #Cognitive impairment: possible traumatic brain injury Plan: -unable to place to SNF -restarted home Lantus 11 units BID(titrate up), preprandial Humalog 4 units and SSI. -Doxycycline BID for multiple soft tissue abscesses, treat 5-10 days -Tylenol and Ibuprofen prn, avoid opioids if possible. -IS -Home lisinopril (probably for microalbuminuria w/ DM I) -holding home acyclovir (takes prn for herpes) as well as nonessential meds. -Dispo: [facility] home then [facility] unless a rehab option can be found for cognitive impairment -DVT ppx: lovenox Time Spent With Patient Time: Total time spent is greater than 50% in coordination of care (as documented) at patient's floor/unit and/or counseling patient: QUALITY VTE Deep Vein Thrombosis/Pulmonary Embolism Present on Admission: No
[2020-06-14] MEDS: IBUPROFEN 600 MG TABLET PO PRN ×2 (15:53→21:59)
[2020-06-14 17:45] LABS: Hemoglobin A1C 9.5 % Hgb (4.0-6.0)
[2020-06-15] MEDS: INSULIN LISPRO 1 UNIT/0.01 ML UNIT SQ SCH ×6 (00:13→15:59)
[2020-06-15] MEDS: 0.9 % SODIUM CHLORIDE 10 ML SYRINGE IV SCH ×2 (06:42→13:05)
[2020-06-15 07:12] LABS: ALT/SGPT 15 U/L (<40); AST/SGOT 15 U/L (<40); Albumin 2.6 gm/dL (3.2-5.2); Albumin/Globulin Ratio 0.8 (1.0-2.3); Alkaline Phosphatase 139 U/L (39-117); Bilirubin,Direct < 0.2 mg/dL (<0.3); Bilirubin,Total 0.2 mg/dL (0.1-1.0); Blood Urea Nitrogen 12 mg/dL (6-20); Calcium 8.4 mg/dL (8.6-10.4); Carbon Dioxide 32 mmol/L (22-30); Chloride 95 mmol/L (96-108); Globulin 3.4 gm/dL (2.2-3.7); Glomerular Filtration Rate 135; Glucose 112 mg/dL (70-105); Lactate Dehydrogenase 171 U/L (135-225); Phosphorous 4.4 mg/dL (2.5-4.5); Triglycerides 149 mg/dL (<150); Uric Acid 2.4 mg/dL (2.5-8.0)
--- NOTE | 2020-06-15 07:36 | Internal Med Progress Note ---
SUBJECTIVE Subjective Patient information: Note initiated : 06/15/20 at 7:33 am Service Date, if different from initiated Date: [] Patient: Kelvin Plunkett 39 y/o M admitted on 06/11/20 for High Blood Sugar. Chief Complaint: [] Interval history: Mr. Plunkett is a 39 year old diabetes mellitus type 1 diagnosed at age of 5, MRSA skin infections, asthma presented to the ED after 2 days of, nausea and vomiting and found to have diabetic ketoacidosis. Patient says that he ran out of insulin couple days ago. He denies recent fevers, shortness of breath, chest pain. The patient does have multiple skin infections consistent with his history of MRSA soft tissue skin infections. The patient has had IV drug use in the past but denies any recent drug use. Patient did have leukocytosis in the ED, no fevers documented. Patient was admitted to the ICU f or DKA management. 06/12 DKA has resolved, transitioned to subcutaneous basal/bolus insulin. Started PO doxycycline for multiple skin abscesses. 06/13 More interactive today, scored low on cognitive evaluation consistent with recent traumatic brain injury. Small increase in prandial humalog, neutra phos. Transfer to med/surg, following to assist with discharge planning. 06/14 Probably near baseline now, working on discharge options for cognitive rehab which are limited. [facility] [place] [facility], patient does not have a home and step father unwilling to take care of him. patients BG went up to 430 then >500. Will attempt to ascertain if patient eating nondiabetic approved foods. Will not discharge today in order to better control his diabetes and adjust home regimen as needed. 06/15 No overnight event or new complaints. Blood sugar better controlled. Increased his basal from 11 twice daily to 16 twice daily. Patient states that while he was in senior living they did lower it and I suspect because of his dietary changes. Review of Systems: denies headache/fever/chills/nausea/vomiting/chest or abdominal pain/cough/dyspnea/diarrhea. Otherwise see above. Constitutional Vitals: Vital Signs Temp Pulse Resp BP Pulse Ox 97.6 F 63 14 94/54 97 06/15/20 06:48 06/15/20 06:48 06/15/20 06:48 06/15/20 06:48 06/15/20 06:48 Period Temp Pulse Resp BP Sys/Wong Pulse Ox Last 24 Hr 97.0 F-99.0 F 63-76 12-16 94-127/54-77 94-100 Intake and Output 06/14/20 06/15/20 06/15/20 21:59 05:59 13:59 Intake Total 2520 1800 Output Total 1200 Balance 1320 1800 Weight 66.86 kg Intake & Output: Intake & Output 06/14/20 06/15/20 06/15/20 21:59 05:59 13:59 Intake Total 2520 1800 Output Total 1200 Balance 1320 1800 Weight 66.86 kg Intake: Oral 2520 1800 Output: Void Amount 1200 Other: Meal PB & crackers, salad, 2x cheese sticks, 2x diet cran juice Percent of Meal Consumed 100% Feeding Ability Independent Urine Appearance Clear Urine Color Bright Yellow # Voids 4 1 Exam: General: Alert, Awake, No acute Distress Eyes/N/T: EOMI, Head/Neck: neck supple, CV: RRR, No murmurs, Pulm: Clear b/l, no wheezing/rhonchi/rales Abd: soft, nontender, +BS x4 Ext: no clubbing/cyanosis/edema Neuro: Alert, no focal deficits, moves all extremities, Skin: warm/dry OBJ DATA Labs CBC & Chem 7: 06/14/20 05:53 06/15/20 05:25 Labs: Abnormal Lab Results 06/15/20 06/14/20 06/14/20 05:25 05:53 05:53 RBC Hgb Hct MCHC Seg Neutrophils % Lymphocytes % Eosinophils % (Manual) Sodium Chloride 95 L Carbon Dioxide 32 H Anion Gap 7.0 L Creatinine 0.5 L 0.6 L Glucose 112 H 196 H Hemoglobin A1c 9.5 H Uric Acid 2.4 L 1.7 L Calcium 8.4 L 8.3 L Phosphorus GGT 5 L 5 L Alkaline Phosphatase 139 H 157 H Lactate Dehydrogenase 226 H Albumin 2.6 L 2.8 L Albumin/Globulin Ratio 0.8 L 0.8 L 06/14/20 06/13/20 06/13/20 05:53 05:27 05:27 RBC 4.21 L 4.14 L Hgb 12.4 L 12.1 L Hct 37.1 L MCHC 29.9 L Seg Neutrophils % Lymphocytes % 12 L Eosinophils % (Manual) 10 H Sodium 132 L Chloride Carbon Dioxide 31 H Anion Gap 4.0 L Creatinine 0.6 L Glucose 128 H Hemoglobin A1c Uric Acid Calcium 8.0 L Phosphorus 1.8 L GGT 5 L Alkaline Phosphatase 166 H Lactate Dehydrogenase Albumin 3.1 L Albumin/Globulin Ratio 06/12/20 06/12/20 10:48 04:53 RBC Hgb Hct MCHC Seg Neutrophils % 89 H Lymphocytes % 8 L Eosinophils % (Manual) Sodium Chloride Carbon Dioxide Anion Gap Creatinine Glucose 246 H Hemoglobin A1c Uric Acid Calcium 8.1 L Phosphorus GGT Alkaline Phosphatase Lactate Dehydrogenase Albumin Albumin/Globulin Ratio Meds: Medications Acetaminophen (Acetaminophen 325 Mg Tablet) 650 mg PO Q4HP PRN; Protocol PRN Reason: Per Pain Protocol Last Admin: 06/14/20 15:53 Dose: 650 mg Documented by: Albuterol Sulfate (Albuterol Sulfate 2.5 Mg/3 Ml Nebulizer) 2.5 mg NEB Q2HP PRN PRN Reason: Shortness Of Breath Cetirizine HCl (Cetirizine 10 Mg Tablet) 10 mg PO DAILY [facility] Last Admin: 06/14/20 08:16 Dose: 10 mg Documented by: Dextrose (Dextrose 50% 50 Ml Vial) 0 ml IV UD PRN PRN Reason: Hypoglycemia Dextrose (Dextrose 50% 50 Ml Vial) 0 ml IV UD PRN PRN Reason: Hypoglycemia Diagnostic Test (Pha) (Accu-Chek 1 Each Strip) 1 each FS Q4 [facility] Last Admin: 06/15/20 04:00 Dose: 1 each Documented by: Doxycycline Hyclate (Doxycycline Hyclate 100 Mg Tablet.Orl) 100 mg PO BID [facility]; Protocol Last Admin: 06/14/20 20:28 Dose: 100 mg Documented by: Enoxaparin Sodium (Enoxaparin 40 Mg/0.4 Ml Syringe) 40 mg SQ DAILY [facility] Last Admin: 06/14/20 08:15 Dose: 40 mg Documented by: Glucose (Dextrose 31 Gm Oral.Susp) 15 gm PO PRN PRN PRN Reason: Hypoglycemia Glucose (Dextrose 31 Gm Oral.Susp) 15 gm PO PRN PRN PRN Reason: Hypoglycemia Ibuprofen (Ibuprofen 600 Mg Tablet) 600 mg PO Q6HP PRN; Protocol PRN Reason: Fever Or Pain Last Admin: 06/14/20 21:59 Dose: 600 mg Documented by: Insulin Glargine (Insulin Glargine, Human 1 Unit/0.01 Ml) 11 unit SQ BID [facility] Last Admin: 06/14/20 20:30 Dose: 11 units Documented by: Insulin Human Lispro (Insulin Lispro 1 Unit/0.01 Ml Unit) 0 unit SQ Q4 [facility]; Protocol Last Admin: 06/15/20 04:07 Dose: Not Given Documented by: Lisinopril (Lisinopril 2.5 Mg Tablet) 2.5 mg PO DAILY [facility] Montelukast Sodium (Montelukast 10 Mg Tablet) 10 mg PO DAILY [facility] Last Admin: 06/14/20 08:16 Dose: 10 mg Documented by: Mupirocin (Mupirocin Oint 2% 22gm) 1 dose TOPICAL TID [facility] Last Admin: 06/14/20 20:28 Dose: 1 dose Documented by: Omeprazole (Omeprazole 20 Mg Capsule) 20 mg PO ACB [facility] Last Admin: 06/14/20 08:16 Dose: 20 mg Documented by: Ondansetron HCl (Ondansetron 4 Mg/2 Ml Vial) 4 mg IV Q4-6HP PRN; Protocol PRN Reason: Nausea And Vomiting Fluticasone Propionate [Flovent Diskus] 250 Mcg/Actuation Inhaler 1 dose INH BID [facility] Last Admin: 06/14/20 20:29 Dose: Not Given Documented by: Potassium/Phosphorus/Sodium (Neutra Phos 1 Packet) 2 packet PO BID [facility] Stop: 06/15/20 08:59 Last Admin: 06/14/20 20:28 Dose: 2 packet Documented by: Sodium Chloride (0.9 % Sodium Chloride 10 Ml Syringe) 10 ml IV Q8 [facility] Last Admin: 06/15/20 06:42 Dose: 10 ml Documented by: Trazodone HCl (Trazodone Hcl 50 Mg Tablet) 50 mg PO HS PRN PRN Reason: Insomnia Last Admin: 06/14/20 22:00 Dose: 50 mg Documented by: ABG Interpretation ABG results: 06/11/20 06/11/20 06/11/20 11:50 16:21 19:09 ABG Methemoglobin 0 L 0.3 L 0.3 L VBG pH 7.26 L 7.30 L 7.42 VBG pCO2 27.2 L 41.1 36.4 L VBG pO2 128.9 H 86.5 H 145.9 H VBG HCO3 12.0 L 20.0 L 22.9 L VBG Total CO2 12.8 L 21.2 L 24.0 L VBG O2 Saturation 95.4 H 93.0 H 95.0 H VBG Base Excess -14 L -6 L -1 06/11/20 23:14 ABG Methemoglobin 0.3 L VBG pH 7.37 VBG pCO2 42.6 VBG pO2 71.3 H VBG HCO3 24.0 VBG Total CO2 25.3 VBG O2 Saturation 91.2 H VBG Base Excess -1 A/P Narrative A/P Narrative: Assessment: #DKA: #DM I: A1c 9.5 #Acute right 8th rib fracture: #Multiple small skin abscesses: probably from skin picking -MRSA colonization #Asthma: stable #TAMIKO : resolved w/ IV fluid #Substance use disorder w/ hx of IVDU: #h/o Epidural hematoma s/p [place] hole (March 2020): #Cognitive impairment: possible traumatic brain injury Plan: -unable to place to SNF -restarted home Lantus and increased to 16 units BID(titrate up), and SSI. -Doxycycline BID for multiple soft tissue abscesses, treat 5-10 days -Tylenol and Ibuprofen prn, avoid opioids if possible. -IS -Home lisinopril (probably for microalbuminuria w/ DM I) -holding home acyclovir (takes prn for herpes) as well as nonessential meds. -Dispo: probably home then back to [facility] unless a rehab option can be found for cognitive impairment -DVT ppx: lovenox Time Spent With Patient Time: Total time spent is greater than 50% in coordination of care (as documented) at patient's floor/unit and/or counseling patient: QUALITY VTE Deep Vein Thrombosis/Pulmonary Embolism Present on Admission: No
[2020-06-15] MEDS: OMEPRAZOLE 20 MG CAPSULE PO SCH (07:48)
[2020-06-15] MEDS ORDERED: LISINOPRIL 2.5 MG TABLET PO SCH (09:00)
[2020-06-15] MEDS ORDERED: INSULIN GLARGINE, HUMAN 1 UNIT/0.01 ML SQ SCH ×2 (09:00→21:00)
[2020-06-15] MEDS: MONTELUKAST 10 MG TABLET PO SCH (09:21)
[2020-06-15] MEDS: CETIRIZINE 10 MG TABLET PO SCH (09:21)
[2020-06-15] MEDS: FLUTICASONE PROPIONATE INH SCH (09:22)
[2020-06-15] MEDS: DOXYCYCLINE HYCLATE 100 MG TABLET.ORL PO SCH (09:22)
[2020-06-15] MEDS: MUPIROCIN OINT 2% 22GM TOPICAL SCH ×2 (09:22→14:02)
[2020-06-15] MEDS: ENOXAPARIN 40 MG/0.4 ML SYRINGE SQ SCH (09:23)
--- NOTE | 2020-06-15 09:44 | Discharge Summary ---
Discharge Provider Provider Patient information: Note initiated : 06/15/20 at 9:42 am Service Date, if different from initiated Date: [] Patient: Kelvin Plunkett 39 y/o M admitted on 06/11/20 for High Blood Sugar. Chief Complaint: [] Date of admission: 06/11/20 11:09 Discharge date: 06/15/20 Consults: 06/11/20 Consult to Physician [CONS] Stat Comment: Consulting Provider: Adrien Oleary Reason For Exam: Physician to Consult Discharge Meds Discharge Medications Home Medications albuterol sulfate [Ventolin HFA] 2 puff INH Q4HP PRN 04/01/18 [History Confirmed 06/11/20 Last Taken 06/10/20] lisinopril 2.5 mg PO DAILY 04/01/18 [History Confirmed 06/11/20 Last Taken 0 06/10/20] omeprazole 20 mg PO QDAY 04/01/18 [History Confirmed 06/11/20 Last Taken Unknown] trazodone 50 mg PO HS 04/01/18 [History Confirmed 06/11/20 Last Taken Unknown] Flovent Diskus 1 inh INHALATION BID 06/11/20 [History Confirmed 06/11/20 Last Taken Unknown] acyclovir 200 mg PO BID 06/11/20 [History Confirmed 06/11/20 Last Taken Unknown] cetirizine 10 mg PO DAILY 06/11/20 [History Confirmed 06/11/20 Last Taken Unknown] gabapentin 600 mg PO BID 06/11/20 [History Confirmed 06/11/20 Last Taken Unknown] ibuprofen 600 mg PO Q6HP PRN 06/11/20 [History Confirmed 06/11/20 Last Taken Unknown] lancets [Microlet Lancet] 06/11/20 [History Confirmed 06/11/20 Last Taken Unknown] montelukast 10 mg PO DAILY 06/11/20 [History Confirmed 06/11/20 Last Taken Unknown] mupirocin 1 applic TOPICAL TID 06/11/20 [History Confirmed 06/11/20 Last Taken Unknown] doxycycline hyclate 100 mg PO BID #8 tab 06/14/20 [Rx Last Taken Unknown] Levemir FlexTouch U-100 Insuln 16 unit SUBCUT BID #100 ml 06/15/20 [Rx Last Taken Unknown] fluticasone propionate 2 spray INTRANASAL DAILYP PRN #16 g 06/15/20 [Rx Last Taken Unknown] insulin aspart U-100 See Protocol SUBCUT ACHS #15 ml MDD 40 06/15/20 [Rx Last Taken Unknown] COURSE Hospital Course Hospital course: Mr. Plunkett is a 39 year old diabetes mellitus type 1 diagnosed at age of 5, MRSA skin infections, asthma presented to the ED after 2 days of, nausea and vomiting and found to have diabetic ketoacidosis. Patient says that he ran out of insulin couple days ago. He denies recent fevers, shortness of breath, chest pain. The patient does have multiple skin infections consistent with his history of MRSA soft tissue skin infections. The patient has had IV drug use in the past but denies any recent drug use. Patient did have leukocytosis in the ED, no fevers documented. Patient was admitted to the ICU for DKA management. 06/12 DKA has resolved, transitioned to subcutaneous basal/bolus insulin. Started PO doxycycline for multiple skin abscesses. 06/13 More interactive today, scored low on cognitive evaluation consistent with recent traumatic brain injury. Small increase in prandial humalog, neutra phos. Transfer to med/surg, following to assist with discharge planning. 06/14 Probably near baseline now, working on discharge options for cognitive rehab which are limited. Likely discharge to [facility] if possible, patient does not have a home and step father unwilling to take care of him. patients BG went up to 430 then >500. Will attempt to ascertain if patient eating nondiabetic approved foods. Will not discharge today in order to better control his diabetes and adjust home regimen as needed. 06/15 No overnight event or new complaints. Blood sugar better controlled. Increased his basal from 11 twice daily to 16 twice daily. Patient states that while he was in group home they did lower it and I suspect because of his dietary changes. *Patient at high risk for readmission given concern for medication compliance as well as being homeless and history of IVDU. It appears he will be going to a home coordinated by business case analyst. Assessment: #DKA: #DM I: A1c 9.5 #Acute right 8th rib fracture: #Multiple small skin abscesses: probably from skin picking -MRSA colonization #Asthma: stable #TAMIKO : resolved w/ IV fluid #Substance use disorder w/ hx of IVDU: #h/o Epidural hematoma s/p Fany hole (March 2020): #Cognitive impairment: possible traumatic brain injury Discharge diagnosis: DKA acute kidney injury Secondary discharge diagnosis: Diabetes right fracture multiple skin abscesses looks like skin thickening, cognitive impairment possible traumatic brain injury history Time Spent with Patient Time attestation: Total time spent providing and/or coordinating discharge services: Time spent: Greater than 30 minutes EXAM Constitutional Vitals: Temp Pulse Resp BP Pulse Ox 97.6 F 63 14 94/54 97 06/15/20 06:48 06/15/20 06:48 06/15/20 06:48 06/15/20 06:48 06/15/20 06:48 Discharge Data Data Completed and Pending Labs on day of discharge: Labs from last 24 hours 06/15/20 06/14/20 05:25 05:53 Sodium 134 Potassium 3.7 Chloride 95 L Carbon Dioxide 32 H Anion Gap 7.0 L BUN 12 Creatinine 0.5 L GFR Calculation 135 Glucose 112 H Hemoglobin A1c 9.5 H Estim Average Glucose 226 Uric Acid 2.4 L Calcium 8.4 L Phosphorus 4.4 Magnesium 1.7 Total Bilirubin 0.2 Direct Bilirubin < 0.2 GGT 5 L AST 15 ALT 15 Alkaline Phosphatase 139 H Lactate Dehydrogenase 171 Total Protein 6.0 Albumin 2.6 L Globulin 3.4 Albumin/Globulin Ratio 0.8 L Triglycerides 149 Preliminary micro results at discharge 06/11/20 14:38 Blood Culture - Preliminary Blood 06/11/20 14:15 Blood Culture - Preliminary Blood Discharge Plan Patient/Caregiver Discharge Instructions Activity: increase activity as tolerated Diet: Consistent Carbohydrate Instructions: Doxycycline (By mouth), Insulin Aspart Protamine/Insulin Aspart (By injection), Insulin Detemir (By injection), Acute Kidney Injury (DC), Rib Fracture (DC), Diabetic Ketoacidosis (DC), Meal Planning with Diabetes Exchanges (DC), Diabetes Type 1: Management (DC) Activity Restrictions/Additional Instructions: Follow-up with PCP in 3 to 7 days. Please go to the probation office at discharge then they will direct you to where you will go next. Increase activity as tolerated. Consistent carbohydrate diet. Have a bed time snack Check blood glucose before breakfast lunch and dinner and before bed Your prescriptions have been electronically sent to [facility] in [place]. Call your physician for sustained fever greater than 100.5, sustained elevated blood sugars, or any questions/concerns. This discharge packet is provided to you to help keep you informed about your care. We want to ensure you get everything you need when you go home. You will also be receiving a call from us in a few days to follow up with you and see how you are doing since your discharge. This gives us a chance to listen to any concerns you maybe experiencing since you were discharged or any additional need s you may have, as well as providing us feedback on your care experience. We strive to always provide excellent care and thank you for your feedback and for choosing [facility]. Prescriptions: New doxycycline hyclate 100 mg Tablet 100 mg PO BID Qty: 8 RF: 0 Levemir FlexTouch U-100 Insuln 100 unit/mL (3 mL) insulin pen 16 unit subcut BID Qty: 100 RF: 0 insulin aspart U-100 100 unit/mL (3 mL) insulin pen See Protocol unit subcut ACHS MDD 40 Qty: 15 RF: 0 Continued trazodone 50 MG tablet 50 mg PO HS RF: 0 omeprazole 20 MG capsule,delayed release(DR/EC) 20 mg PO QDAY RF: 0 albuterol sulfate [Ventolin HFA] 1 PUFF HFA aerosol inhaler 2 puff INH Q4HP PRN (Reason: Shortness Of Breath) RF: 0 lisinopril 2.5 MG tablet 2.5 mg PO DAILY RF: 0 Flovent Diskus 250 mcg/actuation blister with device 1 inh INHALATION BID RF: 0 gabapentin 600 mg tablet 600 mg PO BID RF: 0 montelukast 10 mg tablet 10 mg PO DAILY RF: 0 mupirocin 2 % ointment 1 applic TOPICAL TID RF: 0 ibuprofen 600 mg tablet 600 mg PO Q6HP PRN (Reason: Fever Or Pain) RF: 0 (DME) lancets [Microlet Lancet] Misc MISCELLANEOUS RF: 0 acyclovir 200 mg capsule 200 mg PO BID RF: 0 cetirizine 10 mg Tablet 10 mg PO DAILY RF: 0 Changed fluticasone propionate 50 mcg/actuation spray,suspension 2 spray INTRANASAL DAILYP PRN (Reason: congestion) Qty: 16 RF: 0 Discontinued Lantus U-100 Insulin 1 UNIT/0.01 ML solution 11 unit SQ BID RF: 0 insulin aspart U-100 [Novolog U-100 Insulin aspart] 100 UNIT/ML solution 1 unit SQ QDAY RF: 0 hydrocortisone 1 % cream 1 applic topical DAILY RF: 0 Other Ambulatory Orders: Blood Glucose Strips (Routine) Location: None Selected Ordered By: Jake Marquez Glucometer (Routine) Location: None Selected Ordered By: Jake Marquez Lancets (Routine) Location: None Selected Ordered By: Jake Marquez Follow Up Plan Patient Disposition: Xfer Other Prognosis: Undetermined Overall status at discharge: patient is progressing back to baseline Discharge Orders: Discharge Order (Routine); Ordered 06/15/20 Ordered By: Jake Marquez QUALITY VTE Deep Vein Thrombosis/Pulmonary Embolism Present on Admission: No
[2020-06-15] MEDS ORDERED: INSULIN LISPRO 1 UNIT/0.01 ML UNIT SQ SCH (11:30)
[2020-06-16] MEDS ORDERED: INSULIN GLARGINE, HUMAN 1 UNIT/0.01 ML SQ SCH (09:00)
== END 2020-06-15 15:30 | disposition other institution (70) | DRG 638 ==
LOC: ED 02:12 → ICU 11:00 → MEDSUR 06-13 12:41
PROVIDERS: ADMIT Internal Medicine; ATTEND Internal Medicine

== ENCOUNTER 2021-10-01 01:09 | Inpatient (IN) ==
[2021-10-01] MEDS ORDERED: LACTATED RINGERS 1,000 ML IV ONE ×2 (01:23)
--- NOTE | 2021-10-01 01:24 | Emergency Department Note ---
HPI General Chief complaint: Blood Sugar Problem Stated complaint: Diabetic Hyperglycemia Time Seen by Provider: 10/01/21 01:21 Source: EMS Mode of arrival: EMS Limitations: altered mental status History of Present Illness HPI Narrative: Narrative: 40-year-old male with history of type 1 diabetes, drug abuse, prior traumatic brain injury with hemicraniotomy presents for evaluation via EMS. 911 was called by a neighbor when he wandered and altered. He was found to have critically high blood sugar. Patient is awake but unable to provide any meaningful history. He is very agitated. During a brief period of lucidity, he is able to deny any chest pain or pressure, shortness of breath, abdominal pain, nausea. He is moving all extremities equally. Related Data Home Medications Medication Instructions Recorded Confirmed albuterol sulfate 90 mcg/actuation 2 puff INH Q4HP PRN 04/01/18 06/11/20 aerosol inhaler (Ventolin HFA) lisinopril 2.5 mg tablet 2.5 mg PO DAILY 04/01/18 06/11/20 omeprazole 20 mg capsule,delayed 20 mg PO QDAY 04/01/18 06/11/20 release trazodone 50 mg tablet 50 mg PO HS 04/01/18 06/11/20 acyclovir 200 mg capsule 200 mg PO BID 06/11/20 06/11/20 cetirizine 10 mg tablet 10 mg PO DAILY 06/11/20 06/11/20 fluticasone propionate 250 1 inh INHALATION BID 06/11/20 06/11/20 mcg/actuation blister powder for inhalation (Flovent Diskus) gabapentin 600 mg tablet 600 mg PO BID 06/11/20 06/11/20 ibuprofen 600 mg tablet 600 mg PO Q6HP PRN 06/11/20 06/11/20 lancets (Microlet Lancet) 06/11/20 06/11/20 montelukast 10 mg tablet 10 mg PO DAILY 06/11/20 06/11/20 mupirocin 2 % topical ointment 1 applic TOPICAL TID 06/11/20 06/11/20 Previous Rx's Medication Instructions Recorded doxycycline hyclate 100 mg tablet 100 mg PO BID #8 tab 06/14/20 fluticasone propionate 50 2 spray INTRANASAL DAILYP PRN #16 g 06/15/20 mcg/actuation nasal spray,suspension insulin aspart U-100 100 unit/mL See Protocol SUBCUT ACHS #15 ml 06/15/20 (3 mL) subcutaneous pen MDD 40 insulin detemir U-100 100 unit/mL 16 unit (0.16 mL) SUBCUT BID #100 06/15/20 (3 mL) subcutaneous pen (Levemir ml FlexTouch U-100 Insulin) needle (disp) 30 gauge 30 gauge x #100 ea 06/15/20/" (BD Specialty Use Tobias) pen needle, diabetic 30 gauge x #100 ea 06/15/2016" Allergies Allergy/AdvReac Type Severity Reaction Status Date / Time No Known Drug Allergies Allergy Verified 10/01/21 01:16 Review of Systems ROS ROS Narrative: Narrative: Limitations: ROS unobtainable due to patients medical condition [facility] Narrative Patient History Narrative: Narrative: Medical/Surgical/Family History All Active Problems (Updated 10/01/21 @ 03:30 by Yosef Escobar MD) Hyperkalemia (Acute) COPD (chronic obstructive pulmonary disease) (Acute) Gastroenteritis (Acute) Sinusitis (Acute) Diabetes (Acute) Hyperglycemia (Acute) Genital herpes (Acute) Abscess of skin or subcutaneous tissue (Acute) Degenerative disc disease, thoracic (Acute) Abscess (Acute) Diabetic keto-acidosis (Acute) Hypoglycemia (Acute) Diabetes mellitus out of control (Acute) Diabetic keto-acidosis (Acute) Delirium (Acute) Substance abuse (Acute) Social History Smoking Status: Never smoker Alcohol Intake Frequency: a few times a week Substance Use: other (Unknown) Exam Narrative Narrative: Narrative: General Limitations: altered mental status General appearance: Present alert, appears intoxicated and other (Very agitated, tachypneic with Kussmaul respirations) Head Head: Present atraumatic, normocephalic and other (Well-healed craniotomy scar) Eye Eye: Present normal appearance, PERRL and EOMI; Absent nystagmus ENT ENT: Present normal exam and mucous membranes moist Neck Neck: Present normal inspection and full ROM; Absent meningismus Chest Chest: Present normal inspection and symmetric chest wall rise Respiratory Respiratory: Present normal lung sounds bilaterally and other (Burr Picker small respi rations); Absent respiratory distress Cardiovascular Cardiovascular: Present normal rhythm and tachycardia; Absent systolic murmur or diastolic murmur Adbominal Abdominal: Present soft and other (Well-healed midline scar); Absent distention or tenderness Extremities Extremities: Present normal inspection, full ROM and other (Track boogie and multiple abraded areas, scar tissue throughout arms) Neurological Neurological: Present alert and CN II-XII intact; Absent motor sensory deficit Psychiatric Psychiatric: Present agitated and manic Skin Skin: Present warm (WNL), dry and normal color Course Vital Signs Vital signs: Vital Signs Pulse Rate 116 H 10/01/21 01:10 Respiratory Rate 20 10/01/21 01:10 Blood Pressure 121/58 10/01/21 01:10 Pulse Oximetry (%) 100 10/01/21 01:10 Pulse Rate 132 H 10/01/21 03:45 Respiratory Rate 21 10/01/21 03:45 Blood Pressure 137/88 10/01/21 03:45 Pulse Oximetry (%) 91 10/01/21 03:45 MDM MDM Narrative Medical decision making narrative: Narrative: Patient with critical high blood sugar, severely agitated on arrival with drug paraphernalia. Due to his agitation he was a threat to himself and others, so was given IV sedation to obtain diagnostics, started with ketamine to maintain respiratory drive given his critical hyperglycemia. He remained agitated despite appropriate dosing so was given repeat dose of ketamine, Haldol and Ativan. He was placed on end-tidal CO2 to ensure he was maintaining his respiratory status. Upon receipt of his initial potassium level greater than 5, he was started on insulin drip. He was given high-dose IV fluid bolus, 3 L ordered initially. There is no gross abnormality on head CT, chest x-ray appears normal and there is no obvious infectious etiology of his cause. Troponin is negative and EKG does not show acute coronary syndrome. He does not have hemiplegic symptoms concerning for CVA. Will be admitted for further treatment of his DKA Lab Data Lab results reviewed: Yes I reviewed the patient's lab results. Result diagrams: 10/01/21 01:23 10/01/21 01:23 Labs: Lab Results 10/01/21 10/01/21 10/01/21 Range/Units 01:23 01: 01:23 WBC 16.2 H (4.5-11.0) K/mcL RBC 4.45 L (4.63-6.08) M/mcL Hgb 13.6 L (13.7-17.5) g/dL Hct 44.8 (40.1-51.0) % POC Hct (41-55) MCV 100.7 H (80.0-100.0) fL MCH 30.6 (26.0-34.0) pg MCHC 30.4 L (31.0-36.0) g/dL RDW 12.5 (11.5-14.5) % Plt Count 507 H (140-440) K/mcL MPV 9.4 (7.4-10.4) fL Neut % (Auto) 88.3 H (38.0-78.0) % Lymph % (Auto) 7.0 L (15.5-49.0) % [place] % (Auto) 4.2 (1.0-12.0) % Eos % (Auto) 0.1 (0.0-7.0) % Baso % (Auto) 0.4 (0.0-2.0) % Lymph # (Auto) 1.13 L (1.50-4.80) K/mcL [place] # (Auto) 0.68 (0.10-0.90) K/mcL Eos # (Auto) 0.01 (0.00-0.70) K/mcL Baso # (Auto) 0.06 (0.00-0.30) K/mcL Absolute Neutrophils 14.34 H (1.80-8.00) K/mcL POC VBG pH (7.32-7.42) POC VBG pCO2 at Temp (41-51) POC VBG pO2 (25-40) POC VBG HCO3 (24-28) POC VBG Total CO2 (25-29) POC Venous O2 Sat (40-70) POC VBG Base Excess (-2-2) POC Sodium (133-145) Sodium 126 L (133-145) mmol/L POC Potassium (3.3-5.1) Potassium 5.3 H (3.3-5.1) mmol/L POC Chloride (96-108) Chloride 83 L (96-108) mmol/L Carbon Dioxide 10 L* (22-30) mmol/L POC Total CO2 (22-30) Anion Gap 33.0 H (8.0-16.0) POC BUN (6-20) BUN 17 (6-20) mg/dL Creatinine 1.2 (0.7-1.2) mg/dL POC Creatinine (0.6-1.2) GFR Calculation 74 Glucose 816 H* (70-105) mg/dL POC Glucose (70-105) POC Venous Lactate (0.5-2) Calcium 9.0 (8.6-10.4) mg/dL POC WB Ioniz Calcium (1.16-1.32) Total Bilirubin 0.8 (0.1-1.0) mg/dL AST 117 H (<40) U/L ALT 74 H (<40) U/L Alkaline Phosphatase 266 H (39-117) U/L Total Protein 7.8 (5.9-8.4) gm/dL Albumin 4.0 (3.2-5.2) gm/dL Globulin 3.8 H (2.2-3.7) gm/dL Albumin/Globulin Ratio 1.1 (1.0-2.3) Beta-Hydroxybutyrate 8.88 H (<0.27) mmol/L Urine Opiates Screen Ur Opiates Confirm Ur Oxycodone Screen Urine Methadone Screen Ur Methadone Confirm Ur Barbiturates Screen Ur Barbiturate Confirm Ur Phencyclidine Scrn Urine PCP Confirm Ur Amphetamines Screen U Benzodiazepines Scrn Ur Benzodiazepine, Qnt Urine Cocaine Screen Urine Cocaine Confirm U Cannabinoids Confirm U Marijuana (THC) Screen Ethyl Alcohol < 0.010 (<0.010) gm/dL POC Troponin I (0.02-0.08) 10/01/21 10/01/21 10/01/21 Range/Units 01:24 01:25 01:27 WBC (4.5-11.0) K/mcL RBC (4.63-6.08) M/mcL Hgb (13.7-17.5) g/dL Hct (40.1-51.0) % POC Hct 45.0 (41-55) MCV (80.0-100.0) fL MCH (26.0-34.0) pg MCHC (31.0-36.0) g/dL RDW (11.5-14.5) % Plt Count (140-440) K/mcL MPV (7.4-10.4) fL Neut % (Auto) (38.0-78.0) % Lymph % (Auto) (15.5-49.0) % [place] % (Auto) (1.0-12.0) % Eos % (Auto) (0.0-7.0) % Baso % (Auto) (0.0-2.0) % Lymph # (Auto) (1.50-4.80) K/mcL [place] # (Auto) (0.10-0.90) K/mcL Eos # (Auto) (0.00-0.70) K/mcL Baso # (Auto) (0.00-0.30) K/mcL Absolute Neutrophils (1.80-8.00) K/mcL POC VBG pH 7.17 L* (7.32-7.42) POC VBG pCO2 at Temp 28.8 L (41-51) POC VBG pO2 49 H (25-40) POC VBG HCO3 10.6 L* (24-28) POC VBG Total CO2 11.0 L (25-29) POC Venous O2 Sat 74.0 H (40-70) POC VBG Base Excess -18.0 L (-2-2) POC Sodium 128 L (133-145) Sodium (133-145) mmol/L POC Potassium 5.3 H (3.3-5.1) Potassium (3.3-5.1) mmol/L POC Chloride 96 (96-108) Chloride (96-108) mmol/L Carbon Dioxide (22-30) mmol/L POC Total CO2 12.0 L (22-30) Anion Gap (8.0-16.0) POC BUN 17 (6-20) BUN (6-20) mg/dL Creatinine (0.7-1.2) mg/dL POC Creatinine 0.9 (0.6-1.2) GFR Calculation Glucose (70-105) mg/dL POC Glucose > 700 H* (70-105) POC Venous Lactate 4.4 H* (0.5-2) Calcium (8.6-10.4) mg/dL POC WB Ioniz Calcium 1.06 L (1.16-1.32) Total Bilirubin (0.1-1.0) mg/dL AST (<40) U/L ALT (<40) U/L Alkaline Phosphatase (39-117) U/L Total Protein (5.9-8.4) gm/dL Albumin (3.2-5.2) gm/dL Globulin (2.2-3.7) gm/dL Albumin/Globulin Ratio (1.0-2.3) Beta-Hydroxybutyrate (<0.27) mmol/L Urine Opiates Screen Ur Opiates Confirm Ur Oxycodone Screen Urine Methadone Screen Ur Methadone Confirm Ur Barbiturates Screen Ur Barbiturate Confirm Ur Phencyclidine Scrn Urine PCP Confirm Ur Amphetamines Screen U Benzodiazepines Scrn Ur Benzodiazepine, Qnt Urine Cocaine Screen Urine Cocaine Confirm U Cannabinoids Confirm U Marijuana (THC) Screen Ethyl Alcohol (<0.010) gm/dL POC Troponin I 0.01 L (0.02-0.08) 10/01/21 10/01/21 Range/Units 02:57 03:59 WBC (4.5-11.0) K/mcL RBC (4.63-6.08) M/mcL Hgb (13.7-17.5) g/dL Hct (40.1-51.0) % POC Hct 44.0 (41-55) MCV (80.0-100.0) fL MCH (26.0-34.0) pg MCHC (31.0-36.0) g/dL RDW (11.5-14.5) % Plt Count (140-440) K/mcL MPV (7.4-10.4) fL Neut % (Auto) (38.0-78.0) % Lymph % (Auto) (15.5-49.0) % [place] % (Auto) (1.0-12.0) % Eos % (Auto) (0.0-7.0) % Baso % (Auto) (0.0-2.0) % Lymph # (Auto) (1.50-4.80) K/mcL [place] # (Auto) (0.10-0.90) K/mcL Eos # (Auto) (0.00-0.70) K/mcL Baso # (Auto) (0.00-0.30) K/mcL Absolute Neutrophils (1.80-8.00) K/mcL POC VBG pH (7.32-7.42) POC VBG pCO2 at Temp (41-51) POC VBG pO2 (25-40) POC VBG HCO3 (24-28) POC VBG Total CO2 (25-29) POC Venous O2 Sat (40-70) POC VBG Base Excess (-2-2) POC Sodium 136 (133-145) Sodium (133-145) mmol/L POC Potassium 4.3 (3.3-5.1) Potassium (3.3-5.1) mmol/L POC Chloride 101 (96-108) Chloride (96-108) mmol/L Carbon Dioxide (22-30) mmol/L POC Total CO2 14.0 L (22-30) Anion Gap (8.0-16.0) POC BUN 17 (6-20) BUN (6-20) mg/dL Creatinine (0.7-1.2) mg/dL POC Creatinine 0.9 (0.6-1.2) GFR Calculation Glucose (70-105) mg/dL POC Glucose 390 H (70-105) POC Venous Lactate (0.5-2) Calcium (8.6-10.4) mg/dL POC WB Ioniz Calcium 1.21 (1.16-1.32) Total Bilirubin (0.1-1.0) mg/dL AST (<40) U/L ALT (<40) U/L Alkaline Phosphatase (39-117) U/L Total Protein (5.9-8.4) gm/dL Albumin (3.2-5.2) gm/dL Globulin (2.2-3.7) gm/dL Albumin/Globulin Ratio (1.0-2.3) Beta-Hydroxybutyrate (<0.27) mmol/L Urine Opiates Screen None detected Ur Opiates Confirm TNP Ur Oxycodone Screen None detected Urine Methadone Screen None detected Ur Methadone Confirm TNP Ur Barbiturates Screen None detected Ur Barbiturate Confirm TNP Ur Phencyclidine Scrn None detected Urine PCP Confirm TNP Ur Amphetamines Screen Suspect positive A U Benzodiazepines Scrn None detected Ur Benzodiazepine, Qnt TNP Urine Cocaine Screen None detected Urine Cocaine Confirm TNP U Cannabinoids Confirm TNP U Marijuana (THC) Screen None detected Ethyl Alcohol (<0.010) gm/dL POC Troponin I (0.02-0.08) ED POC Tests ED POC Tests: AB - SARS Antigen Negative Radiology Data Radiology results reviewed: Yes I reviewed the patient's radiology results. EKG Data EKG #1: EKG attestation: Yes I reviewed and interpreted this EKG. EKG results narrative: Slightly limited interpretation by baseline artifact. Sinus tachycardia at a rate of 130. Normal axis. QTC 472. No acute appearing ST-T changes although again limited especially in the limb leads by motion artifact. Tachycardic but overall nonacute EKG CC TIME Critical Care Time Attestation: Approximately 90 minutes of critical care time was used in order to assess and manage the high probability of imminent or life threatening deterioration to diabetic ketoacidosis, agitated delirium, polysubstance abuse which required my highest level of preparedness and interventions with frequent patient assessme nts. This time is excluding time spent on separately billable procedures. Discharge Plan Patient/Caregiver Discharge Instructions Pt seen by CODING AND REIMBURSEMENT SPECIALIST/PA only: No Clinical Impression: Diabetic keto-acidosis, Delirium, Substance abuse Patient Disposition: Xfer As Inpt ([facility]) Discharge Date/Time: 10/01/21 04:17
[2021-10-01 01:28] LABS: POC Blood Urea Nitrogen 17 (6-20); POC Calcium, Ionized 1.06 (1.16-1.32); POC Chloride 96 (96-108); POC Creatinine 0.9 (0.6-1.2); POC Glucose, Random > 700 (70-105); POC Potassium 5.3 (3.3-5.1); POC Sodium 128 (133-145)
[2021-10-01] MEDS ORDERED: KETAMINE 50 MG/ML ML IV ONE (01:35)
[2021-10-01] MEDS ORDERED: KETAMINE 100 MG/ML ML ONE (01:40)
[2021-10-01] MEDS ORDERED: LORazepam 2 MG/ML VIAL IM ONE (01:41)
[2021-10-01] MEDS ORDERED: KETAMINE 10 MG/ML ML IV ONE (01:41)
[2021-10-01] MEDS ORDERED: HALOPERIDOL LACTATE 5 MG/ML VIAL IM ONE (01:41)
[2021-10-01] MEDS ORDERED: KETAMINE 50 MG/ML ML ONE (01:44)
[2021-10-01] MEDS ORDERED: INSULIN REGULAR, HUMAN 50 UNIT in 0.9 % SODIUM CHLORIDE 99.5 ML IV SCH ×2 (01:45→04:34)
[2021-10-01] MEDS ORDERED: 0.9 % SODIUM CHLORIDE 1,000 ML IV ONE (01:54)
--- NOTE | 2021-10-01 02:35 | Cat Scan Report ---
CLINICAL INFORMATION: Diabetic hyperglycemia unresponsive COMPARISON: None. TECHNIQUE: 2.5 mm helical slices were obtained in the skull base to vertex. Following reconstruction, axial reformatted images were reviewed at bone and parenchymal windows. The exam was performed using radiation dose optimization techniques including, but not limited to, automated exposure control, adjustment of the mA and/or kV according to patient size and use of iterative reconstruction technique. FINDINGS: The ventricles, sulci, fissures, and cisterns are normal in size and configuration. No extra-axial fluid collections are identified. The cerebrum, brainstem and cerebellum are unremarkable. There is no evidence of hemorrhage, mass effect, or edema. Bone windows craniotomy changes in the left temporal parietal region. IMPRESSION: Normal head CT without contrast. Interpreted and Authenticated by: Yomi Kaur 10/01/21
[2021-10-01 02:39] LABS: Basophils # (Auto) 0.06 K/mcL (0.00-0.30); Basophils % (Auto) 0.4 % (0.0-2.0); Eosinophils # (Auto) 0.01 K/mcL (0.00-0.70); Eosinophils % (Auto) 0.1 % (0.0-7.0); Hematocrit 44.8 % (40.1-51.0); Hemoglobin 13.6 g/dL (13.7-17.5); Lymphocytes # (Auto) 1.13 K/mcL (1.50-4.80); Mean Cell Volume 100.7 fL (80.0-100.0); Mean Corpuscular HGB Conc 30.4 g/dL (31.0-36.0); Mean Platelet Volume 9.4 fL (7.4-10.4); Monocytes # (Auto) 0.68 K/mcL (0.10-0.90); Monocytes % (Auto) 4.2 % (1.0-12.0); Neutrophils % (Auto) 88.3 % (38.0-78.0); Platelet Count 507 K/mcL (140-440); RBC 4.45 M/mcL (4.63-6.08); Red Cell Distribution Width 12.5 % (11.5-14.5); WBC 16.2 K/mcL (4.5-11.0)
[2021-10-01 02:51] LABS: Alcohol, Blood < 10.0 mg/dL; Alcohol,Blood < 0.010 gm/dL (<0.010)
--- NOTE | 2021-10-01 02:56 | XRay Report ---
CLINICAL INFORMATION: Diabetic ketoacidosis COMPARISON: 06/11/2020 TECHNIQUE: PA and Lateral views FINDINGS: The heart size, mediastinum and pulmonary vessels are unremarkable. The lungs are clear. There are no effusions. The bones and soft tissues are within normal limits. IMPRESSION: Normal chest. Interpreted and Authenticated by: Yomi Kaur 10/01/21
[2021-10-01 03:20] LABS: ALT/SGPT 74 U/L (<40); AST/SGOT 117 U/L (<40); Albumin/Globulin Ratio 1.1 (1.0-2.3); Alkaline Phosphatase 266 U/L (39-117); Bilirubin,Total 0.8 mg/dL (0.1-1.0); Blood Urea Nitrogen 17 mg/dL (6-20); Carbon Dioxide 10 mmol/L (22-30); Chloride 83 mmol/L (96-108); Globulin 3.8 gm/dL (2.2-3.7); Glomerular Filtration Rate 74; Glucose 816 mg/dL (70-105)
--- NOTE | 2021-10-01 03:26 | Internal Med History&Physical ---
HPI History of Present Illness Patient information: Note initiated : 10/01/21 at 3:19 am Service Date, if different from initiated Date: [] Patient: Kelvin Plunkett a 40 y/o M admitted on for Diabetic Hyperglycemia. Chief Complaint: [altered mental status] Chief complaint: altered mental status History of present illness: Mr. Plunkett is a 40 year old M of COPD, type 1 diabetes mellitus, presented with altered mental status. Patient was found by neighbor to be wandering in his neighborhood earlier this morning, and he was being sent to our ER by EMS for further evaluations. Due to his clinical situations and mental status, he is unable to provide much history. There is also no family or friends or childcare center director available to provide any useful history. Patient's labs significant for elevated blood sugar 816. Leukocytosis with WBC 16.2. VBG showing pH 7.17, bicarb 10.6, anion gap 33, sodium 126 (corrected sodium 137), potassium 5.3, lactic acid 4.4, beta hydroxybutyrate pending. Urine drug screen result pending. UA does not suggest the presence of urinary tract infections. Chest x- ray no focal infiltrates. Head CT unremarkable. Fluid boluses given in the ED, insulin drip started, and admission request for continued insulin drip according to DKA protocol is requested. Review of Systems ROS unobtainable: due to mental status PFSH PFSH All Active Problems (Updated 10/01/21 @ 03:30 by Yosef Escobar MD) Hyperkalemia (Acute) COPD (chronic obstructive pulmonary disease) (Acute) Gastroenteritis (Acute) Sinusitis (Acute) Diabetes (Acute) Hyperglycemia (Acute) Genital herpes (Acute) Abscess of skin or subcutaneous tissue (Acute) Degenerative disc disease, thoracic (Acute) Abscess (Acute) Diabetic keto-acidosis (Acute) Hypoglycemia (Acute) Diabetes mellitus out of control (Acute) Diabetic keto-acidosis (Acute) Delirium (Acute) Substance abuse (Acute) Social History alcohol intake frequency: a few times a week substance use type: other (Unknown) MEDS/ALLERGIES Home Medications and Allergies Home Medications Medication Instructions Recorded Confirmed Type albuterol sulfate 90 mcg/actuation 2 puff INH Q4HP PRN 04/01/18 06/11/20 History aerosol inhaler (Ventolin HFA) lisinopril 2.5 mg tablet 2.5 mg PO DAILY 04/01/18 06/11/20 History omeprazole 20 mg capsule,delayed 20 mg PO QDAY 04/01/18 06/11/20 History release trazodone 50 mg tablet 50 mg PO HS 04/01/18 06/11/20 History acyclovir 200 mg capsule 200 mg PO BID 06/11/20 06/11/20 History cetirizine 10 mg tablet 10 mg PO DAILY 06/11/20 06/11/20 History fluticasone propionate 250 1 inh INHALATION BID 06/11/20 06/11/20 History mcg/actuation blister powder for inhalation (Flovent Diskus) gabapentin 600 mg tablet 600 mg PO BID 06/11/20 06/11/20 History ibuprofen 600 mg tablet 600 mg PO Q6HP PRN 06/11/20 06/11/20 History lancets (Microlet Lancet) 06/11/20 06/11/20 History montelukast 10 mg tablet 10 mg PO DAILY 06/11/20 06/11/20 History mupirocin 2 % topical ointment 1 applic TOPICAL TID 06/11/20 06/11/20 History doxycycline hyclate 100 mg tablet 100 mg PO BID #8 tab 06/14/20 Rx fluticasone propionate 50 2 spray INTRANASAL DAILYP PRN #16 g 06/15/20 Rx mcg/actuation nasal spray,suspension insulin aspart U-100 100 unit/mL See Protocol SUBCUT ACHS #15 ml 06/15/20 Rx (3 mL) subcutaneous pen MDD 40 insulin detemir U-100 100 unit/mL 16 unit (0.16 mL) SUBCUT BID #100 06/15/20 Rx (3 mL) subcutaneous pen (Levemir ml FlexTouch U-100 Insulin) needle (disp) 30 gauge 30 gauge x #100 ea 06/15/20 Rx 1/2" (BD Specialty Use Doucette) pen needle, diabetic 30 gauge x #100 ea 06/15/20 Rx /16" Allergies Allergy/AdvReac Type Severity Reaction Status Date / Time No Known Drug Allergies Allergy Verified 10/01/21 01:16 EXAM Constitutional Vitals: Pulse Resp BP Pulse Ox 129 H 16 142/85 98 10/01/21 02:34 10/01/21 02:34 10/01/21 02:34 10/01/21 02:34 General appearance: disheveled and no acute distress; no cooperative Exam: lethargic Head Head exam: Present atraumatic and normocephalic Eye Eye exam: Present EOMI and PERRL ENT ENT exam: Present mucous membranes moist, normal exam and normal external ear exam Neck Neck exam: Present normal inspection; Absent lymphadenopathy, tenderness or thyromegaly Respiratory Respiratory exam: Absent accessory muscle use, respiratory distress or wheezes Cardiovascular Cardiovascular exam: Present tachycardia; Absent JVD GI/Abdominal GI/Abdominal exam: Present normal bowel sounds and soft; Absent organomegaly or tenderness Rectal Rectal exam: Present deferred Extremities Exam Extremities exam: Present full ROM, normal capillary refill and normal inspection; Absent tenderness Neurological Exam Neurological exam: Present altered and CN II-XII intact; Absent alert, motor sensory deficit or oriented X3 Additional comments: lethargic Psychiatric Additional comments: unable to assess due to clinical situations Skin Skin exam: Present dry and intact DATA Data Completed and Pending Labs: Labs from last 24 hours 10/01/21 10/01/21 10/01/21 02:57 01:27 01:25 WBC RBC Hgb Hct POC Hct 45.0 MCV MCH MCHC RDW Plt Count MPV Neut % (Auto) Lymph % (Auto) [place] % (Auto) Eos % (Auto) Baso % (Auto) Lymph # (Auto) [place] # (Auto) Eos # (Auto) Baso # (Auto) Absolute Neutrophils POC VBG pH POC VBG pCO2 at Temp POC VBG pO2 POC VBG HCO3 POC VBG Total CO2 POC Venous O2 Sat POC VBG Base Excess POC Sodium 128 L Sodium POC Potassium 5.3 H Potassium POC Chloride 96 Chloride Carbon Dioxide POC Total CO2 12.0 L Anion Gap POC BUN 17 BUN Creatinine POC Creatinine 0.9 GFR Calculation Glucose POC Glucose > 700 H* POC Venous Lactate Calcium POC WB Ioniz Calcium 1.06 L Total Bilirubin AST ALT Alkaline Phosphatase Total Protein Albumin Globulin Albumin/Globulin Ratio Beta-Hydroxybutyrate Urine Opiates Screen Pending Ur Opiates Confirm Pending Ur Oxycodone Screen Pending Urine Methadone Screen Pending Ur Methadone Confirm Pending Ur Barbiturates Screen Pending Ur Barbiturate Confirm Pending Ur Phencyclidine Scrn Pending Urine PCP Confirm Pending Ur Amphetamines Screen Pending U Amphetamines Confirm Pending U Benzodiazepines Scrn Pending Ur Benzodiazepine, Qnt Pending Urine Cocaine Screen Pending Urine Cocaine Confirm Pending U Cannabinoids Confirm Pending U Marijuana (THC) Screen Pending Ethyl Alcohol POC Troponin I 0.01 L 10/01/21 10/01/21 10/01/21 01:24 01:23 01:23 WBC RBC Hgb Hct POC Hct MCV MCH MCHC RDW Plt Count MPV Neut % (Auto) Lymph % (Auto) [place] % (Auto) Eos % (Auto) Baso % (Auto) Lymph # (Auto) [place] # (Auto) Eos # (Auto) Baso # (Auto) Absolute Neutrophils POC VBG pH 7.17 L* POC VBG pCO2 at Temp 28.8 L POC VBG pO2 49 H POC VBG HCO3 10.6 L* POC VBG Total CO2 11.0 L POC Venous O2 Sat 74.0 H POC VBG Base Excess -18.0 L POC Sodium Sodium Pending POC Potassium Potassium Pending POC Chloride Chloride Pending Carbon Dioxide Pending POC Total CO2 Anion Gap Pending POC BUN BUN Pending Creatinine Pending POC Creatinine GFR Calculation Pending Glucose Pending POC Glucose POC Venous Lactate 4.4 H* Calcium Pending POC WB Ioniz Calcium Total Bilirubin Pending AST Pending ALT Pending Alkaline Phosphatase Pending Total Protein Pending Albumin Pending Globulin Pending Albumin/Globulin Ratio Pending Beta-Hydroxybutyrate Pending Urine Opiates Screen Ur Opiates Confirm Ur Oxycodone Screen Urine Methadone Screen Ur Methadone Confirm Ur Barbiturates Screen Ur Barbiturate Confirm Ur Phencyclidine Scrn Urine PCP Confirm Ur Amphetamines Screen U Amphetamines Confirm U Benzodiazepines Scrn Ur Benzodiazepine, Qnt Urine Cocaine Screen Urine Cocaine Confirm U Cannabinoids Confirm U Marijuana (THC) Screen Ethyl Alcohol < 0.010 POC Troponin I 10/01/21 01:23 WBC 16.2 H RBC 4.45 L Hgb 13.6 L Hct 44.8 POC Hct MCV 100.7 H MCH 30.6 MCHC 30.4 L RDW 12.5 Plt Count 507 H MPV 9.4 Neut % (Auto) 88.3 H Lymph % (Auto) 7.0 L [place] % (Auto) 4.2 Eos % (Auto) 0.1 Baso % (Auto) 0.4 Lymph # (Auto) 1.13 L [place] # (Auto) 0.68 Eos # (Auto) 0.01 Baso # (Auto) 0.06 Absolute Neutrophils 14.34 H POC VBG pH POC VBG pCO2 at Temp POC VBG pO2 POC VBG HCO3 POC VBG Total CO2 POC Venous O2 Sat POC VBG Base Excess POC Sodium Sodium POC Potassium Potassium POC Chloride Chloride Carbon Dioxide POC Total CO2 Anion Gap POC BUN BUN Creatinine POC Creatinine GFR Calculation Glucose POC Glucose POC Venous Lactate Calcium POC WB Ioniz Calcium Total Bilirubin AST ALT Alkaline Phosphatase Total Protein Albumin Globulin Albumin/Globulin Ratio Beta-Hydroxybutyrate Urine Opiates Screen Ur Opiates Confirm Ur Oxycodone Screen Urine Methadone Screen Ur Methadone Confirm Ur Barbiturates Screen Ur Barbiturate Confirm Ur Phencyclidine Scrn Urine PCP Confirm Ur Amphetamines Screen U Amphetamines Confirm U Benzodiazepines Scrn Ur Benzodiazepine, Qnt Urine Cocaine Screen Urine Cocaine Confirm U Cannabinoids Confirm U Marijuana (THC) Screen Ethyl Alcohol POC Troponin I A/P Assessment and plan (1) Diabetic keto-acidosis: Status: Acute Qualifiers: Diabetes mellitus complication detail: without coma Diabetes mellitus type: type 1 Qualified Code(s): E10.10 - Type 1 diabetes mellitus with ketoacidosis without coma (2) Delirium: Status: Acute (3) COPD (chronic obstructive pulmonary disease): Status: Acute (4) Hyperkalemia: Status: Acute Narrative A/P Narrative: Assessment and Plans: 1. 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 COPD: Continue bronchodilators from home regimen 3. Hypokalemia: Insulin according to DKA protocol, see #1 BMP q4hr to trend serum potassium level 4. Acute delirium: Continue to monitor for urine drug screen results Treat DKA with IV fluid and insulin drip, see #1 GI ppx: not currently indicated DVT ppx: Lovenox Code status: Full Prognosis: guarded Disposition: Inpatient ICU with telemetry Critical Care Time: 1hr Time Spent With Patient Time: Total time spent is greater than 50% in coordination of care (as documented) at patient's floor/unit and/or counseling patient: Total time spent with greater than 50% in coordination of care (as documented) at patient's floor/unit and/or counseling patient:: 50 - 70 minutes
[2021-10-01 03:41] LABS: Beta Hydroxybutyrate 8.88 mmol/L (<0.27)
[2021-10-01] MEDS ORDERED: ONDANSETRON 4 MG/2 ML VIAL IV ONE (03:54)
[2021-10-01 03:56] LABS: Amphetamine Screen,Urine Suspect positive; Barbiturate Screen,Urine None detected; Benzodiazepines Screen,Urine None detected; Cannabinoid Screen,Urine None detected; Cocaine Screen,Urine None detected; Opiate Screen,Urine None detected; Oxycodone, Urine Screen None detected; Phencyclidine Screen,Urine None detected
[2021-10-01] MEDS ORDERED: ONDANSETRON 4 MG/2 ML VIAL ONE (04:03)
[2021-10-01 04:04] LABS: POC Calcium, Ionized 1.21 (1.16-1.32); POC Creatinine 0.9 (0.6-1.2); POC Potassium 4.3 (3.3-5.1)
[2021-10-01] MEDS ORDERED: HALOPERIDOL LACTATE 5 MG/ML VIAL IV PRN (04:34)
[2021-10-01] MEDS ORDERED: IPRATROPIUM/ALBUTEROL 3 ML AMPUL.NEB NEB PRN (04:34)
[2021-10-01] MEDS ORDERED: LORazepam 2 MG/ML VIAL IV PRN (04:34)
[2021-10-01] MEDS: DEXTROSE 5%-1/2NS 1,000 ML IV SCH ×3 (05:17→17:08)
[2021-10-01] MEDS: 0.45 % SODIUM CHLORIDE 1,000 ML IV SCH ×3 (05:19→17:09)
[2021-10-01] MEDS: 0.9 % SODIUM CHLORIDE 10 ML SYRINGE IV SCH ×4 (06:11→21:24)
[2021-10-01 06:23] LABS: Appearance,Urine CLEAR (Clear); Bilirubin,Urine Negative (Negative); Color,Urine STRAW; Culture Indicated,Urine No; Glucose,Urine (UA) >=500 mg/dL (Negative); Ketones,Urine 80 mg/dL (Negative); Leukocyte Esterase,Urine Negative /uL (Negative); Mucus,Urine FEW /hpf; Nitrate,Urine Negative (Negative); Protein,Urine Negative (Negative); Specific Gravity,Urine 1.024 (1.000-1.035); Urine Blood 0.03 mg/dL (Negative); Urine RBC < 1 /hpf (0-3); Urine Squamous Epithelial Cell 0 /hpf (0-4); Urine WBC 0 /hpf (0-4); Urobilinogen,Urine Negative
[2021-10-01 06:59] LABS: ABG Methemoglobin 0.3 % (0.4-1.5); Total Hemoglobin 13.5 gm/Dl (13.5-16.5); VBG Base Excess -12 (-2-3); VBG HCO3 12.2 mmol/L (24.0-28.0); VBG Oxygen Saturation 92.7 % (40.0-70.0); VBG PCO2 24.2 mmHg (41.0-51.0); VBG PH 7.32 U (7.32-7.42); VBG PO2 106.6 mmHg (25.0-40.0); VBG Total CO2 12.9 mmol/L (25.0-29.0)
[2021-10-01 07:03] LABS: Basophils # (Auto) 0.04 K/mcL (0.00-0.30); Basophils % (Auto) 0.2 % (0.0-2.0); Eosinophils # (Auto) 0 K/mcL (0.00-0.70); Eosinophils % (Auto) 0 % (0.0-7.0); Hematocrit 36.8 % (40.1-51.0); Hemoglobin 11.9 g/dL (13.7-17.5); Lymphocytes # (Auto) 1.47 K/mcL (1.50-4.80); Mean Cell Volume 94.6 fL (80.0-100.0); Mean Corpuscular HGB Conc 32.3 g/dL (31.0-36.0); Mean Platelet Volume 8.9 fL (7.4-10.4); Monocytes # (Auto) 1.25 K/mcL (0.10-0.90); Monocytes % (Auto) 7.7 % (1.0-12.0); Neutrophils % (Auto) 83.1 % (38.0-78.0); Platelet Count 430 K/mcL (140-440); RBC 3.89 M/mcL (4.63-6.08); Red Cell Distribution Width 12.5 % (11.5-14.5); WBC 16.3 K/mcL (4.5-11.0)
[2021-10-01 07:13] LABS: Estimated Average Glucose(eAG) 212 mg/dL
[2021-10-01] MEDS: OMEPRAZOLE 20 MG CAPSULE PO SCH (07:15)
[2021-10-01 08:01] LABS: Phosphorous 3.1 mg/dL (2.5-4.5)
[2021-10-01 08:06] LABS: ALT/SGPT 61 U/L (<40); AST/SGOT 90 U/L (<40); Albumin 3.3 gm/dL (3.2-5.2); Albumin/Globulin Ratio 1.1 (1.0-2.3); Alkaline Phosphatase 216 U/L (39-117); Bilirubin,Direct 0.2 mg/dL (<0.3); Bilirubin,Total 0.6 mg/dL (0.1-1.0); Blood Urea Nitrogen 15 mg/dL (6-20); Calcium 8.5 mg/dL (8.6-10.4); Carbon Dioxide 12 mmol/L (22-30); Chloride 95 mmol/L (96-108); Glomerular Filtration Rate 92; Glucose 400 mg/dL (70-105); Lactate Dehydrogenase 328 U/L (135-225); Phosphorous 3.1 mg/dL (2.5-4.5); Triglycerides 154 mg/dL (<150); Uric Acid 7.2 mg/dL (2.5-8.0)
[2021-10-01] MEDS: DOCUSATE SODIUM 100 MG CAPSULE PO SCH ×2 (08:08→21:15)
[2021-10-01] MEDS ORDERED: SENNOSIDES 1 TABLET PO PRN (08:11)
[2021-10-01] MEDS ORDERED: FLUTICASONE PROPIONATE INHALATION SCH (09:00)
[2021-10-01] MEDS ORDERED: [UNRECOGNIZED DRUG - OTHER] INHALATION SCH (09:00)
[2021-10-01] MEDS ORDERED: MUPIROCIN OINT 2% 22GM TOPICAL SCH (09:00)
[2021-10-01 09:18] LABS: ABG Methemoglobin 0.3 % (0.4-1.5); Total Hemoglobin 13.9 gm/Dl (13.5-16.5); VBG Base Excess -8 (-2-3); VBG Oxygen Saturation 92.7 % (40.0-70.0); VBG PCO2 25.3 mmHg (41.0-51.0); VBG PH 7.39 U (7.32-7.42); VBG PO2 125.7 mmHg (25.0-40.0); VBG Total CO2 15.8 mmol/L (25.0-29.0)
[2021-10-01] MEDS: LISINOPRIL 2.5 MG TABLET PO SCH (09:21)
[2021-10-01] MEDS: GABAPENTIN 300 MG CAPSULE PO SCH ×2 (09:21→21:16)
[2021-10-01] MEDS: CETIRIZINE 10 MG TABLET PO SCH (09:21)
[2021-10-01] MEDS: MONTELUKAST 10 MG TABLET PO SCH (09:21)
[2021-10-01] MEDS: ENOXAPARIN 40 MG/0.4 ML SYRINGE SQ SCH (09:23)
[2021-10-01 09:37] LABS: Carbon Dioxide 15 mmol/L (22-30); Chloride 97 mmol/L (96-108)
--- NOTE | 2021-10-01 12:44 | EKG ---
[facility] Test Date: 2021-10-01 Pat Name: Kelvin Plunkett Department: ED Room: Gender: Male Donkey Doctor: SE : 1980 Requested By: Kane Miner Order Number: [id number] Reading MD: Tico Goodwin Measurements Intervals [place] Rate: 130 P: 97 AK: 119 QRS: 96 QRSD: 180 T: 31 QT: 321 QTc: 472 Interpretive Statements Sinus tachycardia Excessive artifact Electronically Signed On 10-01-2021 12:44:38 PDT by Tico Goodwin /[id number]
[2021-10-01 12:58] LABS: ABG Methemoglobin 0 % (0.4-1.5); Total Hemoglobin 13.7 gm/Dl (13.5-16.5); VBG Base Excess -2 (-2-3); VBG HCO3 20.8 mmol/L (24.0-28.0); VBG Oxygen Saturation 88.8 % (40.0-70.0); VBG PCO2 28.6 mmHg (41.0-51.0); VBG PH 7.48 U (7.32-7.42); VBG PO2 116.9 mmHg (25.0-40.0); VBG Total CO2 21.7 mmol/L (25.0-29.0)
[2021-10-01 14:54] LABS: Carbon Dioxide 16 mmol/L (22-30); Chloride 103 mmol/L (96-108)
[2021-10-01] MEDS: INSULIN GLARGINE, HUMAN 1 UNIT/0.01 ML SQ SCH ×2 (15:49→21:16)
[2021-10-01 17:10] LABS: ABG Methemoglobin 0.2 % (0.4-1.5); Total Hemoglobin 13.3 gm/Dl (13.5-16.5); VBG Base Excess -1 (-2-3); VBG HCO3 24.4 mmol/L (24.0-28.0); VBG Oxygen Saturation 90.4 % (40.0-70.0); VBG PCO2 44.4 mmHg (41.0-51.0); VBG PH 7.36 U (7.32-7.42); VBG Total CO2 25.8 mmol/L (25.0-29.0)
[2021-10-01 20:54] LABS: ABG Methemoglobin 0.2 % (0.4-1.5); Total Hemoglobin 12.6 gm/Dl (13.5-16.5); VBG Base Excess -1 (-2-3); VBG HCO3 23.5 mmol/L (24.0-28.0); VBG Oxygen Saturation 93.6 % (40.0-70.0); VBG PCO2 37.7 mmHg (41.0-51.0); VBG PH 7.41 U (7.32-7.42); VBG PO2 113.3 mmHg (25.0-40.0); VBG Total CO2 24.7 mmol/L (25.0-29.0)
[2021-10-01] MEDS: traZODone HCL 50 MG TABLET PO SCH (21:15)
[2021-10-01] MEDS: FLUTICASONE HFA 110MCG INHALER INH SCH (21:16)
[2021-10-01] MEDS: INSULIN LISPRO 1 UNIT/0.01 ML UNIT SQ SCH (21:20)
[2021-10-02] MEDS: 0.9 % SODIUM CHLORIDE 10 ML SYRINGE IV SCH ×4 (05:05→20:30)
[2021-10-02 06:31] LABS: Basophils # (Auto) 0.03 K/mcL (0.00-0.30); Basophils % (Auto) 0.3 % (0.0-2.0); Eosinophils # (Auto) 0.11 K/mcL (0.00-0.70); Eosinophils % (Auto) 0.9 % (0.0-7.0); Hematocrit 36.1 % (40.1-51.0); Hemoglobin 11.5 g/dL (13.7-17.5); Lymphocytes # (Auto) 2.25 K/mcL (1.50-4.80); Lymphocytes % (Auto) 19.2 % (15.5-49.0); Mean Cell Volume 94.3 fL (80.0-100.0); Mean Corpuscular HGB Conc 31.9 g/dL (31.0-36.0); Mean Platelet Volume 8.8 fL (7.4-10.4); Monocytes # (Auto) 0.76 K/mcL (0.10-0.90); Monocytes % (Auto) 6.5 % (1.0-12.0); Neutrophils % (Auto) 73.1 % (38.0-78.0); Platelet Count 354 K/mcL (140-440); RBC 3.83 M/mcL (4.63-6.08); Red Cell Distribution Width 12.7 % (11.5-14.5); WBC 11.7 K/mcL (4.5-11.0)
[2021-10-02 07:22] LABS: ALT/SGPT 44 U/L (<40); AST/SGOT 50 U/L (<40); Albumin 3.1 gm/dL (3.2-5.2); Albumin/Globulin Ratio 1.1 (1.0-2.3); Alkaline Phosphatase 206 U/L (39-117); Bilirubin,Direct < 0.2 mg/dL (0-0.3); Bilirubin,Total 0.7 mg/dL (0.1-1.0); Blood Urea Nitrogen 7 mg/dL (6-20); Calcium 8.2 mg/dL (8.6-10.4); Carbon Dioxide 26 mmol/L (22-30); Chloride 102 mmol/L (96-108); Globulin 2.8 gm/dL (2.2-3.7); Glomerular Filtration Rate 116; Glucose 100 mg/dL (70-105); Lactate Dehydrogenase 247 U/L (135-225); Phosphorous 3.1 mg/dL (2.5-4.5); Triglycerides 190 mg/dL (<150); Uric Acid 4.9 mg/dL (2.5-8.0)
[2021-10-02] MEDS: INSULIN LISPRO 1 UNIT/0.01 ML UNIT SQ SCH ×4 (07:54→20:25)
[2021-10-02] MEDS: OMEPRAZOLE 20 MG CAPSULE PO SCH (07:54)
[2021-10-02] MEDS: DOCUSATE SODIUM 100 MG CAPSULE PO SCH ×2 (09:20→20:24)
[2021-10-02] MEDS: LISINOPRIL 2.5 MG TABLET PO SCH (09:21)
[2021-10-02] MEDS: GABAPENTIN 300 MG CAPSULE PO SCH ×2 (09:21→20:24)
[2021-10-02] MEDS: CETIRIZINE 10 MG TABLET PO SCH (09:21)
[2021-10-02] MEDS: FLUTICASONE HFA 110MCG INHALER INH SCH ×2 (09:21→20:39)
[2021-10-02] MEDS: MONTELUKAST 10 MG TABLET PO SCH (09:21)
[2021-10-02] MEDS: ENOXAPARIN 40 MG/0.4 ML SYRINGE SQ SCH (09:25)
[2021-10-02] MEDS: INSULIN GLARGINE, HUMAN 1 UNIT/0.01 ML SQ SCH ×2 (09:25→20:24)
--- NOTE | 2021-10-02 10:04 | Internal Med Progress Note ---
SUBJECTIVE Subjective Patient information: Note initiated : 10/02/21 at 9:54 am Service Date, if different from initiated Date: [] Patient: Kelvin Plunkett 40 y/o M admitted on 10/01/21 for Diabetic Hyperglycemia. Chief Complaint: [] Interval history: History of present illness: Mr. Plunkett is a 40 year old M of COPD, type 1 diabetes mellitus, presented with altered mental status. Patient was found by neighbor to be wandering in his neighborhood earlier this morning, and he was being sent to our ER by EMS for further evaluations. Due to his clinical situations and mental status, he is unable to provide much history. There is also no family or friends or home care and home health aides teacher available to provide any useful history. Patient's labs significant for elevated blood sugar 816. Leukocytosis with WBC 16.2. VBG showing pH 7.17, bicarb 10.6, anion gap 33, sodium 126 (corrected sodium 137), potassium 5.3, lactic acid 4.4, beta hydroxybutyrate pending. Urine drug screen result pending. UA does not suggest the presence of urinary tract infections. Chest x- ray no focal infiltrates. Head CT unremarkable. Fluid boluses given in the ED, insulin drip started, and admission request for continued insulin drip according to DKA protocol is requested. 10/02: Insulin drip was switched off yesterday evening. Patient's was transitioned to subcutaneous insulin therapy. Fasting glucose 122 this morning. 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 Already transferred from ICU to [facility]. We will continue subcutaneous insulin therapy while awaiting patient's mentations to go back to his baseline before discharging him home. Constitutional Vitals: Vital Signs Temp Pulse Resp BP Pulse Ox 36.8 C 97 H 14 130/79 96 10/02/21 08:00 10/02/21 08:00 10/02/21 08:00 10/02/21 08:00 10/02/21 08:00 Period Temp Pulse Resp BP Sys/Wong Pulse Ox Last 24 Hr 36.8 C-37.8 C 89-133 14-24 115-160/62-85 91-100 Intake and Output 10/01/21 10/02/21 10/02/21 21:59 05:59 13:59 Intake Total 1014 0 Output Total 1998 155 200 Balance -985 -155 -200 Weight 66.814 kg Intake & Output: Intake & Output 10/01/21 10/02/21 10/02/21 21:59 05:59 13:59 Intake Total 1014 0 Output Total 1998 155 200 Balance -985 -155 -200 Weight 66.814 kg Intake: IV 1014 Dextrose 5%-1/2Ns IV Solution 1 1000 ,000 ml @ 150 mls/hr IV .[id number] DEACON Rx#:[id number] HumuLIN R 50 UNIT In Sodium 14 Chloride 0.9% 99.5 ml @ 9 UNIT/ HR 18 mls/hr IV DUR DEACON Rx#: [id number] Oral 0 0 Output: Urine Catheter Amount 1998 155 200 Straight 750 Other: Urine Appearance Clear Clear Straight Clear Clear Urine Color Bright Yellow Bright Yellow Straight Bright Yellow Bright Yellow Urine Odor Strong Normal Straight Normal General appearance: disheveled Exam: lethargic Head Head exam: Present atraumatic and normal inspection Eye Eye exam: Present normal appearance ENT ENT exam: Present mucous membranes moist, normal exam and normal external ear exam Neck Neck exam: Present normal inspection Respiratory Respiratory exam: Present normal respiratory exam Cardiovascular Cardiovascular exam: Present normal rate and rhythm GI/Abdominal GI/Abdominal exam: Present normal bowel sounds Back Exam Back exam: Present normal inspection Neurological Exam Neurological exam: Present altered; Absent oriented X3 Skin Skin exam: Present intact and warm OBJ DATA Labs CBC & Chem 7: 10/02/21 05:09 10/02/21 05:09 Labs: Abnormal Lab Results 10/02/21 10/02/21 10/01/21 05:09 05:09 20:31 WBC 11.7 H RBC 3.83 L Hgb 11.5 L Hct 36.1 L MCV MCHC Plt Count Neut % (Auto) Lymph % (Auto) Lymph # (Auto) [place] # (Auto) Absolute Neutrophils 8.55 H ABG Methemoglobin 0.2 L VBG pH POC VBG pH VBG pCO2 37.7 L POC VBG pCO2 at Temp VBG pO2 113.3 H POC VBG pO2 VBG HCO3 23.5 L POC VBG HCO3 VBG Total CO2 24.7 L POC VBG Total CO2 VBG O2 Saturation 93.6 H POC Venous O2 Sat VBG Base Excess POC VBG Base Excess Carboxyhemoglobin 4.4 H Total Hemoglobin 12.6 L POC Sodium Sodium POC Potassium Potassium Chloride Carbon Dioxide POC Total CO2 Anion Gap Glucose POC Glucose Hemoglobin A1c POC Venous Lactate Calcium 8.2 L POC WB Ioniz Calcium AST 50 H ALT 44 H Alkaline Phosphatase 206 H Lactate Dehydrogenase 247 H Albumin 3.1 L Globulin Triglycerides 190 H Beta-Hydroxybutyrate Urine Glucose (UA) Urine Ketones Urine Mucus Ur Amphetamines Screen POC Troponin I 10/01/21 10/01/21 10/01/21 16:48 12:37 12:37 WBC RBC Hgb Hct MCV MCHC Plt Count Neut % (Auto) Lymph % (Auto) Lymph # (Auto) [place] # (Auto) Absolute Neutrophils ABG Methemoglobin 0.2 L 0 L VBG pH 7.48 H POC VBG pH VBG pCO2 28.6 L POC VBG pCO2 at Temp VBG pO2 67.0 H 116.9 H POC VBG pO2 VBG HCO3 20.8 L POC VBG HCO3 VBG Total CO2 21.7 L POC VBG Total CO2 VBG O2 Saturation 90.4 H 88.8 H POC Venous O2 Sat VBG Base Excess POC VBG Base Excess Carboxyhemoglobin 3.4 H 9.6 H Total Hemoglobin 13.3 L POC Sodium Sodium POC Potassium Potassium Chloride Carbon Dioxide 16 L POC Total CO2 Anion Gap Glucose POC Glucose Hemoglobin A1c POC Venous Lactate Calcium POC WB Ioniz Calcium AST ALT Alkaline Phosphatase Lactate Dehydrogenase Albumin Globulin Triglycerides Beta-Hydroxybutyrate Urine Glucose (UA) Urine Ketones Urine Mucus Ur Amphetamines Screen POC Troponin I 10/01/21 10/01/21 10/01/21 08:44 08:43 06:36 WBC RBC Hgb Hct MCV MCHC Plt Count Neut % (Auto) Lymph % (Auto) Lymph # (Auto) [place] # (Auto) Absolute Neutrophils ABG Methemoglobin 0.3 L 0.3 L VBG pH POC VBG pH VBG pCO2 25.3 L 24.2 L POC VBG pCO2 at Temp VBG pO2 125.7 H 106.6 H POC VBG pO2 VBG HCO3 15.0 L 12.2 L POC VBG HCO3 VBG Total CO2 15.8 L 12.9 L POC VBG Total CO2 VBG O2 Saturation 92.7 H 92.7 H POC Venous O2 Sat VBG Base Excess -8 L -12 L POC VBG Base Excess Carboxyhemoglobin 5.4 H 4.7 H Total Hemoglobin POC Sodium Sodium POC Potassium Potassium Chloride Carbon Dioxide 15 L POC Total CO2 Anion Gap 21.0 H Glucose POC Glucose Hemoglobin A1c POC Venous Lactate Calcium POC WB Ioniz Calcium AST ALT Alkaline Phosphatase Lactate Dehydrogenase Albumin Globulin Triglycerides Beta-Hydroxybutyrate Urine Glucose (UA) Urine Ketones Urine Mucus Ur Amphetamines Screen POC Troponin I 10/01/21 10/01/21 10/01/21 06:35 06:34 06:06 WBC 16.3 H RBC 3.89 L Hgb 11.9 L Hct 36.8 L MCV MCHC Plt Count Neut % (Auto) 83.1 H Lymph % (Auto) 9.0 L Lymph # (Auto) 1.47 L [place] # (Auto) 1.25 H Absolute Neutrophils 13.51 H ABG Methemoglobin VBG pH POC VBG pH VBG pCO2 POC VBG pCO2 at Temp VBG pO2 POC VBG pO2 VBG HCO3 POC VBG HCO3 VBG Total CO2 POC VBG Total CO2 VBG O2 Saturation POC Venous O2 Sat VBG Base Excess POC VBG Base Excess Carboxyhemoglobin Total Hemoglobin POC Sodium Sodium POC Potassium Potassium Chloride 95 L Carbon Dioxide 12 L POC Total CO2 Anion Gap 26.0 H Glucose 400 H POC Glucose Hemoglobin A1c 9.0 H POC Venous Lactate Calcium 8.5 L POC WB Ioniz Calcium AST 90 H ALT 61 H Alkaline Phosphatase 216 H Lactate Dehydrogenase 328 H Albumin Globulin Triglycerides 154 H Beta-Hydroxybutyrate Urine Glucose (UA) >=500 A Urine Ketones 80 A Urine Mucus Few A Ur Amphetamines Screen POC Troponin I 10/01/21 10/01/21 10/01/21 03:59 02:57 01:27 WBC RBC Hgb Hct MCV MCHC Plt Count Neut % (Auto) Lymph % (Auto) Lymph # (Auto) [place] # (Auto) Absolute Neutrophils ABG Methemoglobin VBG pH POC VBG pH VBG pCO2 POC VBG pCO2 at Temp VBG pO2 POC VBG pO2 VBG HCO3 POC VBG HCO3 VBG Total CO2 POC VBG Total CO2 VBG O2 Saturation POC Venous O2 Sat VBG Base Excess POC VBG Base Excess Carboxyhemoglobin Total Hemoglobin POC Sodium Sodium POC Potassium Potassium Chloride Carbon Dioxide POC Total CO2 14.0 L Anion Gap Glucose POC Glucose 390 H Hemoglobin A1c POC Venous Lactate Calcium POC WB Ioniz Calcium AST ALT Alkaline Phosphatase Lactate Dehydrogenase Albumin Globulin Triglycerides Beta-Hydroxybutyrate Urine Glucose (UA) Urine Ketones Urine Mucus Ur Amphetamines Screen Suspect positive A POC Troponin I 0.01 L 10/01/21 10/01/21 10/01/21 01:25 01:24 01:23 WBC RBC Hgb Hct MCV MCHC Plt Count Neut % (Auto) Lymph % (Auto) Lymph # (Auto) [place] # (Auto) Absolute Neutrophils ABG Methemoglobin VBG pH POC VBG pH 7.17 L* VBG pCO2 POC VBG pCO2 at Temp 28.8 L VBG pO2 POC VBG pO2 49 H VBG HCO3 POC VBG HCO3 10.6 L* VBG Total CO2 POC VBG Total CO2 11.0 L VBG O2 Saturation POC Venous O2 Sat 74.0 H VBG Base Excess POC VBG Base Excess -18.0 L Carboxyhemoglobin Total Hemoglobin POC Sodium 128 L Sodium 126 L POC Potassium 5.3 H Potassium 5.3 H Chloride 83 L Carbon Dioxide 10 L* POC Total CO2 12.0 L Anion Gap 33.0 H Glucose 816 H* POC Glucose > 700 H* Hemoglobin A1c POC Venous Lactate 4.4 H* Calcium POC WB Ioniz Calcium 1.06 L AST 117 H ALT 74 H Alkaline Phosphatase 266 H Lactate Dehydrogenase Albumin Globulin 3.8 H Triglycerides Beta-Hydroxybutyrate 8.88 H Urine Glucose (UA) Urine Ketones Urine Mucus Ur Amphetamines Screen POC Troponin I 10/01/21 01:23 WBC 16.2 H RBC 4.45 L Hgb 13.6 L Hct MCV 100.7 H MCHC 30.4 L Plt Count 507 H Neut % (Auto) 88.3 H Lymph % (Auto) 7.0 L Lymph # (Auto) 1.13 L [place] # (Auto) Absolute Neutrophils 14.34 H ABG Methemoglobin VBG pH POC VBG pH VBG pCO2 POC VBG pCO2 at Temp VBG pO2 POC VBG pO2 VBG HCO3 POC VBG HCO3 VBG Total CO2 POC VBG Total CO2 VBG O2 Saturation POC Venous O2 Sat VBG Base Excess POC VBG Base Excess Carboxyhemoglobin Total Hemoglobin POC Sodium Sodium POC Potassium Potassium Chloride Carbon Dioxide POC Total CO2 Anion Gap Glucose POC Glucose Hemoglobin A1c POC Venous Lactate Calcium POC WB Ioniz Calcium AST ALT Alkaline Phosphatase Lactate Dehydrogenase Albumin Globulin Triglycerides Beta-Hydroxybutyrate Urine Glucose (UA) Urine Ketones Urine Mucus Ur Amphetamines Screen POC Troponin I Meds: Medications Albuterol/Ipratropium (Ipratropium/Albuterol 3 Ml Ampul.Neb) 3 ml NEB Q4HRT PRN PRN Reason: Wheezing Cetirizine HCl (Cetirizine 10 Mg Tablet) 10 mg PO DAILY [facility] Last Admin: 10/02/21 09:21 Dose: Not Given Documented by: Diagnostic Test (Pha) (Accu-Chek 1 Each Strip) 1 each FS ACHS [facility] Last Admin: 10/02/21 07:54 Dose: 1 each Documented by: Docusate Sodium (Docusate Sodium 100 Mg Capsule) 100 mg PO BID [facility] Last Admin: 10/02/21 09:20 Dose: Not Given Documented by: Enoxaparin Sodium (Enoxaparin 40 Mg/0.4 Ml Syringe) 40 mg SQ DAILY [facility] Last Admin: 10/02/21 09:25 Dose: 40 mg Documented by: Fluticasone Propionate (Fluticasone Hfa 110mcg Inhaler) 1 puff INH BID [facility] Last Admin: 10/02/21 09:21 Dose: Not Given Documented by: Gabapentin (Gabapentin 300 Mg Capsule) 600 mg PO BID [facility] Last Admin: 10/02/21 09:21 Dose: Not Given Documented by: Haloperidol Lactate (Haloperidol Lactate 5 Mg/Ml Vial) 2 mg IV Q4HP PRN PRN Reason: ANXIETY/SEDATION Insulin Human Regular 50 unit/ (Sodium Chloride) 100 mls @ 0 mls/hr IV DUR [facility]; Protocol Ibuprofen (Ibuprofen 600 Mg Tablet) 600 mg PO Q6HP PRN; Protocol PRN Reason: Fever Or Pain Insulin Glargine (Insulin Glargine, Human 1 Unit/0.01 Ml) 16 unit SQ BID [facility] Last Admin: 10/02/21 09:25 Dose: 16 unit Documented by: Insulin Human Lispro (Insulin Lispro 1 Unit/0.01 Ml Unit) 0 unit SQ [facility]; Protocol Last Admin: 10/02/21 07:54 Dose: Not Given Documented by: Lisinopril (Lisinopril 2.5 Mg Tablet) 2.5 mg PO DAILY [facility] Last Admin: 10/02/21 09:21 Dose: Not Given Documented by: Lorazepam (Lorazepam 2 Mg/Ml Vial) 1 mg IV Q2-4HP PRN PRN Reason: ANXIETY/SEDATION Montelukast Sodium (Montelukast 10 Mg Tablet) 10 mg PO DAILY [facility] Last Admin: 10/02/21 09:21 Dose: Not Given Documented by: Omeprazole (Omeprazole 20 Mg Capsule) 20 mg PO QAMAC [facility] Last Admin: 10/02/21 07:54 Dose: Not Given Documented by: Ondansetron HCl (Ondansetron 4 Mg/2 Ml Vial) 4 mg IV Q4-6HP PRN; Protocol PRN Reason: Nausea And Vomiting Senna (Sennosides 1 Tablet) 1 tab PO DAILYP PRN PRN Reason: Constipation Sodium Chloride (0.9 % Sodium Chloride 10 Ml Syringe) 10 ml IV Q8 [facility] Last Admin: 10/02/21 05:10 Dose: 10 ml Documented by: Trazodone HCl (Trazodone Hcl 50 Mg Tablet) 50 mg PO HS [facility] Last Admin: 10/01/21 21:15 Dose: Not Given Documented by: ABG Interpretation ABG results: 10/01/21 10/01/21 10/01/21 06:36 08:44 12:37 ABG Methemoglobin 0.3 L 0.3 L 0 L VBG pH 7.32 7.39 7.48 H VBG pCO2 24.2 L 25.3 L 28.6 L VBG pO2 106.6 H 125.7 H 116.9 H VBG HCO3 12.2 L 15.0 L 20.8 L VBG Total CO2 12.9 L 15.8 L 21.7 L VBG O2 Saturation 92.7 H 92.7 H 88.8 H VBG Base Excess -12 L -8 L -2 10/01/21 10/01/21 16:48 20:31 ABG Methemoglobin 0.2 L 0.2 L VBG pH 7.36 7.41 VBG pCO2 44.4 37.7 L VBG pO2 67.0 H 113.3 H VBG HCO3 24.4 23.5 L VBG Total CO2 25.8 24.7 L VBG O2 Saturation 90.4 H 93.6 H VBG Base Excess -1 -1 A/P Assessment and plan (1) Diabetic keto-acidosis: Status: Acute Qualifiers: Diabetes mellitus complication detail: without coma Diabetes mellitus type: type 1 Qualified Code(s): E10.10 - Type 1 diabetes mellitus with ketoacidosis without coma (2) Delirium: Status: Acute (3) COPD (chronic obstructive pulmonary disease): Status: Acute (4) Hyperkalemia: Status: Acute Narrative A/P Narrative: Assessment and Plans: 1. Diabetic ketoacidosis associated with type diabetes mellitus: Inpatient med surg Insulin Lantus 16 unit BID SSI AC HS Accu Chek AC HS Hypoglycemia protocol Diabetic diet 2. COPD: Continue bronchodilators from home regimen 3. Hypokalemia: RESOLVED Insulin according to DKA protocol, see #1 BMP q4hr to trend serum potassium level 4. 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
[2021-10-02] MEDS: traZODone HCL 50 MG TABLET PO SCH (20:27)
[2021-10-03] MEDS: 0.9 % SODIUM CHLORIDE 10 ML SYRINGE IV SCH ×3 (05:25→21:34)
[2021-10-03 06:32] LABS: Basophils # (Auto) 0.02 K/mcL (0.00-0.30); Basophils % (Auto) 0.3 % (0.0-2.0); Eosinophils % (Auto) 4.2 % (0.0-7.0); Hematocrit 36.7 % (40.1-51.0); Hemoglobin 11.8 g/dL (13.7-17.5); Lymphocytes # (Auto) 1.67 K/mcL (1.50-4.80); Lymphocytes % (Auto) 23.3 % (15.5-49.0); Mean Cell Volume 94.8 fL (80.0-100.0); Mean Corpuscular HGB Conc 32.2 g/dL (31.0-36.0); Mean Platelet Volume 8.7 fL (7.4-10.4); Monocytes # (Auto) 0.61 K/mcL (0.10-0.90); Monocytes % (Auto) 8.5 % (1.0-12.0); Neutrophils % (Auto) 63.7 % (38.0-78.0); Platelet Count 319 K/mcL (140-440); RBC 3.87 M/mcL (4.63-6.08); Red Cell Distribution Width 12.3 % (11.5-14.5); WBC 7.2 K/mcL (4.5-11.0)
[2021-10-03 07:30] LABS: ALT/SGPT 40 U/L (<40); AST/SGOT 44 U/L (<40); Albumin/Globulin Ratio 0.9 (1.0-2.3); Alkaline Phosphatase 213 U/L (39-117); Bilirubin,Direct < 0.2 mg/dL (0-0.3); Bilirubin,Total 0.4 mg/dL (0.1-1.0); Blood Urea Nitrogen 8 mg/dL (6-20); Calcium 8.5 mg/dL (8.6-10.4); Carbon Dioxide 30 mmol/L (22-30); Chloride 103 mmol/L (96-108); Globulin 3.2 gm/dL (2.2-3.7); Glomerular Filtration Rate 134; Glucose 36 mg/dL (70-105); Lactate Dehydrogenase 243 U/L (135-225); Phosphorous 4.1 mg/dL (2.5-4.5); Triglycerides 192 mg/dL (<150); Uric Acid 3.7 mg/dL (2.5-8.0)
[2021-10-03] MEDS ORDERED: DEXTROSE 50% 50 ML SYRINGE IV ONE ×3 (07:32→07:43)
[2021-10-03] MEDS: INSULIN LISPRO 1 UNIT/0.01 ML UNIT SQ SCH ×4 (07:49→20:15)
[2021-10-03] MEDS: OMEPRAZOLE 20 MG CAPSULE PO SCH (07:59)
--- NOTE | 2021-10-03 09:28 | Internal Med Progress Note ---
SUBJECTIVE Subjective Patient information: Note initiated : 10/03/21 at 9:23 am Service Date, if different from initiated Date: [] Patient: Kelvin Plunkett a 40 y/o M admitted on 10/01/21 for Diabetic Hyperglycemia. Chief Complaint: [] Interval history: History of present illness: Mr. Plunkett is a 40 year old M of COPD, type 1 diabetes mellitus, presented with altered mental status. Patient was found by neighbor to be wandering in his neighborhood earlier this morning, and he was being sent to our ER by EMS for further evaluations. Due to his clinical situations and mental status, he is unable to provide much history. There is also no family or friends or manager critical care unit available to provide any useful history. Patient's labs significant for elevated blood sugar 816. Leukocytosis with WBC 16.2. VBG showing pH 7.17, bicarb 10.6, anion gap 33, sodium 126 (corrected sodium 137), potassium 5.3, lactic acid 4.4, beta hydroxybutyrate pending. Urine drug screen result pending. UA does not suggest the presence of urinary tract infections. Chest x- ray no focal infiltrates. Head CT unremarkable. Fluid boluses given in the ED, insulin drip started, and admission request for continued insulin drip according to DKA protocol is requested. 10/02: Insulin drip was switched off yesterday evening. Patient's was transitioned to subcutaneous insulin therapy. Fasting glucose 122 this morning. 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 Already transferred from ICU to [facility]. We will continue subcutaneous insulin therapy while awaiting patient's mentations to go back to his baseline before discharging him home. 10/03: Fasting glucose 36 this morning. He is waking up more this morning relative to yesterday. Good appetite, finished dinner last night and breakfast this morning. Still c/o confusion, A&O X2 to person and place only. d/c long active insulin Lantus, continue SSI. Continue to monitor for his mental status. Constitutional Vitals: Vital Signs Temp Pulse Resp BP Pulse Ox 36.8 C 91 H 16 111/72 96 10/03/21 07:54 10/03/21 07:54 10/03/21 04:00 10/03/21 07:54 10/03/21 07:54 Period Temp Pulse Resp BP Sys/Wong Pulse Ox Last 24 Hr 36.3 C-36.9 C 77-97 16-20 111-135/66-83 94-100 Intake and Output 10/02/21 10/03/21 10/03/21 21:59 05:59 13:59 Intake Total 810 1220 Output Total 480 750 275 Balance 330 -750 945 Weight 66.996 kg Intake & Output: Intake & Output 10/02/21 10/03/21 10/03/21 21:59 05:59 13:59 Intake Total 810 1220 Output Total 480 750 275 Balance 330 -750 945 Weight 66.996 kg Intake: Oral 810 1220 Output: Urine Catheter Amount 480 750 275 Other: Meal Dinner Breakfast Percent of Meal Consumed 100% 100% Feeding Ability Independent Assist with Tray Set Up Urine Appearance Clear Clear Clear Uretheral (Ber[place]) Clear Clear Urine Color Bright Yellow Bright Yellow Light [place] Uretheral (Berger) Bright Yellow Light [place] Urine Odor Normal Normal Uretheral (Berger) Normal Exam: lethargic Head Head exam: Present atraumatic and normal inspection Eye Eye exam: Present normal appearance ENT ENT exam: Present mucous membranes moist, normal exam and normal external ear exam Neck Neck exam: Present normal inspection Respiratory Respiratory exam: Present normal respiratory exam Cardiovascular Cardiovascular exam: Present normal rate and rhythm GI/Abdominal GI/Abdominal exam: Present normal bowel sounds Back Exam Back exam: Present normal inspection Neurological Exam Neurological exam: Present alert and altered; Absent oriented X3 Additional comments: oriented X2 to person and place only Skin Skin exam: Present intact and warm OBJ DATA Labs CBC & Chem 7: 10/03/21 05:20 10/03/21 05:20 Labs: Abnormal Lab Results 10/03/21 10/03/21 10/02/21 05:20 05:20 05:09 WBC RBC 3.87 L Hgb 11.8 L Hct 36.7 L MCV MCHC Plt Count Neut % (Auto) Lymph % (Auto) Lymph # (Auto) [place] # (Auto) Absolute Neutrophils ABG Methemoglobin VBG pH POC VBG pH VBG pCO2 POC VBG pCO2 at Temp VBG pO2 POC VBG pO2 VBG HCO3 POC VBG HCO3 VBG Total CO2 POC VBG Total CO2 VBG O2 Saturation POC Venous O2 Sat VBG Base Excess POC VBG Base Excess Carboxyhemoglobin Total Hemoglobin POC Sodium Sodium POC Potassium Potassium Chloride Carbon Dioxide POC Total CO2 Anion Gap 6.0 L Creatinine 0.5 L Glucose 36 L* POC Glucose Hemoglobin A1c POC Venous Lactate Calcium 8.5 L 8.2 L POC WB Ioniz Calcium AST 44 H 50 H ALT 40 H 44 H Alkaline Phosphatase 213 H 206 H Lactate Dehydrogenase 243 H 247 H Albumin 3.0 L 3.1 L Globulin Albumin/Globulin Ratio 0.9 L Triglycerides 192 H 190 H Beta-Hydroxybutyrate Urine Glucose (UA) Urine Ketones Urine Mucus Ur Amphetamines Screen POC Troponin I 10/02/21 10/01/21 10/01/21 05:09 20:31 16:48 WBC 11.7 H RBC 3.83 L Hgb 11.5 L Hct 36.1 L MCV MCHC Plt Count Neut % (Auto) Lymph % (Auto) Lymph # (Auto) [place] # (Auto) Absolute Neutrophils 8.55 H ABG Methemoglobin 0.2 L 0.2 L VBG pH POC VBG pH VBG pCO2 37.7 L POC VBG pCO2 at Temp VBG pO2 113.3 H 67.0 H POC VBG pO2 VBG HCO3 23.5 L POC VBG HCO3 VBG Total CO2 24.7 L POC VBG Total CO2 VBG O2 Saturation 93.6 H 90.4 H POC Venous O2 Sat VBG Base Excess POC VBG Base Excess Carboxyhemoglobin 4.4 H 3.4 H Total Hemoglobin 12.6 L 13.3 L POC Sodium Sodium POC Potassium Potassium Chloride Carbon Dioxide POC Total CO2 Anion Gap Creatinine Glucose POC Glucose Hemoglobin A1c POC Venous Lactate Calcium POC WB Ioniz Calcium AST ALT Alkaline Phosphatase Lactate Dehydrogenase Albumin Globulin Albumin/Globulin Ratio Triglycerides Beta-Hydroxybutyrate Urine Glucose (UA) Urine Ketones Urine Mucus Ur Amphetamines Screen POC Troponin I 10/01/21 10/01/21 10/01/21 12:37 12:37 08:44 WBC RBC Hgb Hct MCV MCHC Plt Count Neut % (Auto) Lymph % (Auto) Lymph # (Auto) [place] # (Auto) Absolute Neutrophils ABG Methemoglobin 0 L 0.3 L VBG pH 7.48 H POC VBG pH VBG pCO2 28.6 L 25.3 L POC VBG pCO2 at Temp VBG pO2 116.9 H 125.7 H POC VBG pO2 VBG HCO3 20.8 L 15.0 L POC VBG HCO3 VBG Total CO2 21.7 L 15.8 L POC VBG Total CO2 VBG O2 Saturation 88.8 H 92.7 H POC Venous O2 Sat VBG Base Excess -8 L POC VBG Base Excess Carboxyhemoglobin 9.6 H 5.4 H Total Hemoglobin POC Sodium Sodium POC Potassium Potassium Chloride Carbon Dioxide 16 L POC Total CO2 Anion Gap Creatinine Glucose POC Glucose Hemoglobin A1c POC Venous Lactate Calcium POC WB Ioniz Calcium AST ALT Alkaline Phosphatase Lactate Dehydrogenase Albumin Globulin Albumin/Globulin Ratio Triglycerides Beta-Hydroxybutyrate Urine Glucose (UA) Urine Ketones Urine Mucus Ur Amphetamines Screen POC Troponin I 10/01/21 10/01/21 10/01/21 08:43 06:36 06:35 WBC 16.3 H RBC 3.89 L Hgb 11.9 L Hct 36.8 L MCV MCHC Plt Count Neut % (Auto) 83.1 H Lymph % (Auto) 9.0 L Lymph # (Auto) 1.47 L [place] # (Auto) 1.25 H Absolute Neutrophils 13.51 H ABG Methemoglobin 0.3 L VBG pH POC VBG pH VBG pCO2 24.2 L POC VBG pCO2 at Temp VBG pO2 106.6 H POC VBG pO2 VBG HCO3 12.2 L POC VBG HCO3 VBG Total CO2 12.9 L POC VBG Total CO2 VBG O2 Saturation 92.7 H POC Venous O2 Sat VBG Base Excess -12 L POC VBG Base Excess Carboxyhemoglobin 4.7 H Total Hemoglobin POC Sodium Sodium POC Potassium Potassium Chloride Carbon Dioxide 15 L POC Total CO2 Anion Gap 21.0 H Creatinine Glucose POC Glucose Hemoglobin A1c POC Venous Lactate Calcium POC WB Ioniz Calcium AST ALT Alkaline Phosphatase Lactate Dehydrogenase Albumin Globulin Albumin/Globulin Ratio Triglycerides Beta-Hydroxybutyrate Urine Glucose (UA) Urine Ketones Urine Mucus Ur Amphetamines Screen POC Troponin I 10/01/21 10/01/21 10/01/21 06:34 06:06 03:59 WBC RBC Hgb Hct MCV MCHC Plt Count Neut % (Auto) Lymph % (Auto) Lymph # (Auto) [place] # (Auto) Absolute Neutrophils ABG Methemoglobin VBG pH POC VBG pH VBG pCO2 POC VBG pCO2 at Temp VBG pO2 POC VBG pO2 VBG HCO3 POC VBG HCO3 VBG Total CO2 POC VBG Total CO2 VBG O2 Saturation POC Venous O2 Sat VBG Base Excess POC VBG Base Excess Carboxyhemoglobin Total Hemoglobin POC Sodium Sodium POC Potassium Potassium Chloride 95 L Carbon Dioxide 12 L POC Total CO2 14.0 L Anion Gap 26.0 H Creatinine Glucose 400 H POC Glucose 390 H Hemoglobin A1c 9.0 H POC Venous Lactate Calcium 8.5 L POC WB Ioniz Calcium AST 90 H ALT 61 H Alkaline Phosphatase 216 H Lactate Dehydrogenase 328 H Albumin Globulin Albumin/Globulin Ratio Triglycerides 154 H Beta-Hydroxybutyrate Urine Glucose (UA) >=500 A Urine Ketones 80 A Urine Mucus Few A Ur Amphetamines Screen POC Troponin I 10/01/21 10/01/21 10/01/21 02:57 01:27 01:25 WBC RBC Hgb Hct MCV MCHC Plt Count Neut % (Auto) Lymph % (Auto) Lymph # (Auto) [place] # (Auto) Absolute Neutrophils ABG Methemoglobin VBG pH POC VBG pH VBG pCO2 POC VBG pCO2 at Temp VBG pO2 POC VBG pO2 VBG HCO3 POC VBG HCO3 VBG Total CO2 POC VBG Total CO2 VBG O2 Saturation POC Venous O2 Sat VBG Base Excess POC VBG Base Excess Carboxyhemoglobin Total Hemoglobin POC Sodium 128 L Sodium POC Potassium 5.3 H Potassium Chloride Carbon Dioxide POC Total CO2 12.0 L Anion Gap Creatinine Glucose POC Glucose > 700 H* Hemoglobin A1c POC Venous Lactate Calcium POC WB Ioniz Calcium 1.06 L AST ALT Alkaline Phosphatase Lactate Dehydrogenase Albumin Globulin Albumin/Globulin Ratio Triglycerides Beta-Hydroxybutyrate Urine Glucose (UA) Urine Ketones Urine Mucus Ur Amphetamines Screen Suspect positive A POC Troponin I 0.01 L 10/01/21 10/01/21 10/01/21 01:24 01:23 01:23 WBC 16.2 H RBC 4.45 L Hgb 13.6 L Hct MCV 100.7 H MCHC 30.4 L Plt Count 507 H Neut % (Auto) 88.3 H Lymph % (Auto) 7.0 L Lymph # (Auto) 1.13 L [place] # (Auto) Absolute Neutrophils 14.34 H ABG Methemoglobin VBG pH POC VBG pH 7.17 L* VBG pCO2 POC VBG pCO2 at Temp 28.8 L VBG pO2 POC VBG pO2 49 H VBG HCO3 POC VBG HCO3 10.6 L* VBG Total CO2 POC VBG Total CO2 11.0 L VBG O2 Saturation POC Venous O2 Sat 74.0 H VBG Base Excess POC VBG Base Excess -18.0 L Carboxyhemoglobin Total Hemoglobin POC Sodium Sodium 126 L POC Potassium Potassium 5.3 H Chloride 83 L Carbon Dioxide 10 L* POC Total CO2 Anion Gap 33.0 H Creatinine Glucose 816 H* POC Glucose Hemoglobin A1c POC Venous Lactate 4.4 H* Calcium POC WB Ioniz Calcium AST 117 H ALT 74 H Alkaline Phosphatase 266 H Lactate Dehydrogenase Albumin Globulin 3.8 H Albumin/Globulin Ratio Triglycerides Beta-Hydroxybutyrate 8.88 H Urine Glucose (UA) Urine Ketones Urine Mucus Ur Amphetamines Screen POC Troponin I Meds: Medications Albuterol/Ipratropium (Ipratropium/Albuterol 3 Ml Ampul.Neb) 3 ml NEB Q4HRT PRN PRN Reason: Wheezing Cetirizine HCl (Cetirizine 10 Mg Tablet) 10 mg PO DAILY [facility] Last Admin: 10/02/21 09:21 Dose: Not Given Documented by: Diagnostic Test (Pha) (Accu-Chek 1 Each Strip) 1 each FS ACHS [facility] Last Admin: 10/03/21 08:09 Dose: 1 each Documented by: Docusate Sodium (Docusate Sodium 100 Mg Capsule) 100 mg PO BID [facility] Last Admin: 10/02/21 20:24 Dose: 100 mg Documented by: Enoxaparin Sodium (Enoxaparin 40 Mg/0.4 Ml Syringe) 40 mg SQ DAILY [facility] Last Admin: 10/02/21 09:25 Dose: 40 mg Documented by: Fluticasone Propionate (Fluticasone Hfa 110mcg Inhaler) 1 puff INH BID [facility] Last Admin: 10/02/21 20:39 Dose: Not Given Documented by: Gabapentin (Gabapentin 300 Mg Capsule) 600 mg PO BID [facility] Last Admin: 10/02/21 20:24 Dose: 600 mg Documented by: Haloperidol Lactate (Haloperidol Lactate 5 Mg/Ml Vial) 2 mg IV Q4HP PRN PRN Reason: ANXIETY/SEDATION Insulin Human Regular 50 unit/ (Sodium Chloride) 100 mls @ 0 mls/hr IV DUR [facility]; Protocol Ibuprofen (Ibuprofen 600 Mg Tablet) 600 mg PO Q6HP PRN; Protocol PRN Reason: Fever Or Pain Insulin Human Lispro (Insulin Lispro 1 Unit/0.01 Ml Unit) 0 unit SQ [facility]; Protocol Last Admin: 10/03/21 07:49 Dose: Not Given Documented by: Lisinopril (Lisinopril 2.5 Mg Tablet) 2.5 mg PO DAILY [facility] Last Admin: 10/02/21 09:21 Dose: Not Given Documented by: Lorazepam (Lorazepam 2 Mg/Ml Vial) 1 mg IV Q2-4HP PRN PRN Reason: ANXIETY/SEDATION Montelukast Sodium (Montelukast 10 Mg Tablet) 10 mg PO DAILY [facility] Last Admin: 10/02/21 09:21 Dose: Not Given Documented by: Omeprazole (Omeprazole 20 Mg Capsule) 20 mg PO QAMAC [facility] Last Admin: 10/03/21 07:59 Dose: 20 mg Documented by: Ondansetron HCl (Ondansetron 4 Mg/2 Ml Vial) 4 mg IV Q4-6HP PRN; Protocol PRN Reason: Nausea And Vomiting Senna (Sennosides 1 Tablet) 1 tab PO DAILYP PRN PRN Reason: Constipation Sodium Chloride (0.9 % Sodium Chloride 10 Ml Syringe) 10 ml IV Q8 [facility] Last Admin: 10/03/21 05:25 Dose: 10 ml Documented by: Trazodone HCl (Trazodone Hcl 50 Mg Tablet) 50 mg PO HS [facility] Last Admin: 10/02/21 20:27 Dose: 50 mg Documented by: ABG Interpretation ABG results: 10/01/21 10/01/21 10/01/21 06:36 08:44 12:37 ABG Methemoglobin 0.3 L 0.3 L 0 L VBG pH 7.32 7.39 7.48 H VBG pCO2 24.2 L 25.3 L 28.6 L VBG pO2 106.6 H 125.7 H 116.9 H VBG HCO3 12.2 L 15.0 L 20.8 L VBG Total CO2 12.9 L 15.8 L 21.7 L VBG O2 Saturation 92.7 H 92.7 H 88.8 H VBG Base Excess -12 L -8 L -2 10/01/21 10/01/21 16:48 20:31 ABG Methemoglobin 0.2 L 0.2 L VBG pH 7.36 7.41 VBG pCO2 44.4 37.7 L VBG pO2 67.0 H 113.3 H VBG HCO3 24.4 23.5 L VBG Total CO2 25.8 24.7 L VBG O2 Saturation 90.4 H 93.6 H VBG Base Excess -1 -1 A/P Assessment and plan (1) Diabetic keto-acidosis: Status: Acute Qualifiers: Diabetes mellitus complication detail: without coma Diabetes mellitus type: type 1 Qualified Code(s): E10.10 - Type 1 diabetes mellitus with ketoacidosis without coma (2) Delirium: Status: Acute (3) COPD (chronic obstructive pulmonary disease): Status: Acute (4) Hyperkalemia: Status: Acute (5) Anemia, normocytic normochromic: Status: Acute Narrative A/P Narrative: Assessment and Plans: 1. Diabetic ketoacidosis associated with type diabetes mellitus: Inpatient med surg Hold Insulin Lantus 16 unit BID to avoid hypoglycemic episodes SSI AC HS Accu Chek AC HS Hypoglycemia protocol Diabetic diet 2. COPD: Continue bronchodilators from home regimen 3. Hypokalemia: RESOLVED Insulin according to DKA protocol, see #1 BMP q4hr to trend serum potassium level 4. 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 Anemia, normocytic normochromic: cbc w/ auto diff in the morning to trend H/H GI ppx: not currently indicated DVT ppx: Lovenox Code status: Full Prognosis: guarded Disposition: inpatient med surg Time Spent With Patient Time: Total time spent is greater than 50% in coordination of care (as documented) at patient's floor/unit and/or counseling patient: Total time spent with greater than 50% in coordination of care (as documented) at patient's floor/unit and/or counseling patient:: 35 - 50 minutes
[2021-10-03] MEDS: GABAPENTIN 300 MG CAPSULE PO SCH ×2 (09:31→20:20)
[2021-10-03] MEDS: DOCUSATE SODIUM 100 MG CAPSULE PO SCH ×2 (09:31→20:20)
[2021-10-03] MEDS: ENOXAPARIN 40 MG/0.4 ML SYRINGE SQ SCH (09:31)
[2021-10-03] MEDS: MONTELUKAST 10 MG TABLET PO SCH (09:31)
[2021-10-03] MEDS: CETIRIZINE 10 MG TABLET PO SCH (09:38)
[2021-10-03] MEDS: LISINOPRIL 2.5 MG TABLET PO SCH (10:21)
[2021-10-03] MEDS: FLUTICASONE HFA 110MCG INHALER INH SCH (10:22)
[2021-10-03] MEDS: FLUTICASONE 250 MCG INH SCH ×2 (10:37→21:34)
[2021-10-03] MEDS: ONDANSETRON 4 MG/2 ML VIAL IV PRN ×3 (12:00→22:55)
[2021-10-03] MEDS: IBUPROFEN 600 MG TABLET PO PRN (15:12)
[2021-10-03] MEDS: PROMETHAZINE 25 MG/ML VIAL IV PRN (20:04)
[2021-10-03] MEDS ORDERED: PROMETHAZINE 25 MG/ML VIAL ONE (20:12)
[2021-10-03] MEDS: INSULIN GLARGINE, HUMAN 1 UNIT/0.01 ML SQ SCH (20:20)
[2021-10-03] MEDS: traZODone HCL 50 MG TABLET PO SCH (20:37)
[2021-10-03] MEDS ORDERED: FLUTICASONE PROPIONATE PO SCH (21:00)
[2021-10-03] MEDS ORDERED: [UNRECOGNIZED DRUG - OTHER] PO SCH (21:00)
[2021-10-04] MEDS: ONDANSETRON 4 MG/2 ML VIAL IV PRN (05:38)
[2021-10-04] MEDS: 0.9 % SODIUM CHLORIDE 10 ML SYRINGE IV SCH ×3 (05:50→21:13)
[2021-10-04 07:06] LABS: Basophils # (Auto) 0.03 K/mcL (0.00-0.30); Basophils % (Auto) 0.4 % (0.0-2.0); Eosinophils # (Auto) 0.16 K/mcL (0.00-0.70); Eosinophils % (Auto) 2.3 % (0.0-7.0); Hematocrit 36.9 % (40.1-51.0); Lymphocytes # (Auto) 0.88 K/mcL (1.50-4.80); Lymphocytes % (Auto) 12.8 % (15.5-49.0); Mean Cell Volume 94.9 fL (80.0-100.0); Mean Corpuscular HGB Conc 32.5 g/dL (31.0-36.0); Monocytes % (Auto) 5.8 % (1.0-12.0); Neutrophils % (Auto) 78.7 % (38.0-78.0); Platelet Count 317 K/mcL (140-440); RBC 3.89 M/mcL (4.63-6.08); Red Cell Distribution Width 11.8 % (11.5-14.5); WBC 6.9 K/mcL (4.5-11.0)
[2021-10-04] MEDS: PROMETHAZINE 25 MG/ML VIAL IV PRN (07:08)
[2021-10-04] MEDS: INSULIN LISPRO 1 UNIT/0.01 ML UNIT SQ SCH ×4 (07:15→21:13)
[2021-10-04] MEDS: OMEPRAZOLE 20 MG CAPSULE PO SCH (07:18)
--- NOTE | 2021-10-04 08:12 | Internal Med Progress Note ---
SUBJECTIVE Subjective Patient information: Note initiated : 10/04/21 at 8:06 am Service Date, if different from initiated Date: [] Patient: Kelvin Plunkett a 40 y/o M admitted on 10/01/21 for Diabetic Hyperglycemia. Chief Complaint: [] Interval history: History of present illness: Mr. Plunkett is a 40 year old M of COPD, type 1 diabetes mellitus, presented with altered mental status. Patient was found by neighbor to be wandering in his neighborhood earlier this morning, and he was being sent to our ER by EMS for further evaluations. Due to his clinical situations and mental status, he is unable to provide much history. There is also no family or friends or ocular care technician available to provide any useful history. Patient's labs significant for elevated blood sugar 816. Leukocytosis with WBC 16.2. VBG showing pH 7.17, bicarb 10.6, anion gap 33, sodium 126 (corrected sodium 137), potassium 5.3, lactic acid 4.4, beta hydroxybutyrate pending. Urine drug screen result pending. UA does not suggest the presence of urinary tract infections. Chest x- ray no focal infiltrates. Head CT unremarkable. Fluid boluses given in the ED, insulin drip started, and admission request for continued insulin drip according to DKA protocol is requested. 10/02: Insulin drip was switched off yesterday evening. Patient's was transitioned to subcutaneous insulin therapy. Fasting glucose 122 this morning. 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 Already transferred from ICU to [facility]. We will continue subcutaneous insulin therapy while awaiting patient's mentations to go back to his baseline before discharging him home. 10/03: Fasting glucose 36 this morning. He is waking up more this morning relative to yesterday. Good appetite, finished dinner last night and breakfast this morning. Still c/o confusion, A&O X2 to person and place only. d/c long active insulin Lantus, continue SSI. Continue to monitor for his mental status. 10/04: She does complain of nausea, vomiting, and constipation's. He is also c omplaining of loss of appetite. In addition, he is also committing of anxiety and agitations. Fasting glucose 347, without overnight hypoglycemic episodes. Order KUB to rule out ileus or bowel obstruction. Zofran/Phenergan PRN nausea vomiting. Continue Lantus and SSI for glycemic control. Continue to monitor for symptoms associated with methamphetamine abuse. Constitutional Vitals: Vital Signs Temp Pulse Resp BP Pulse Ox 36.9 C 72 18 147/91 99 10/04/21 04:01 10/03/21 20:01 10/04/21 04:01 10/04/21 04:01 10/04/21 04:01 Period Temp Pulse Resp BP Sys/Wong Pulse Ox Last 24 Hr 36.4 C-36.9 C 72-243 109-170/67-137 84-100 Intake and Output 10/03/21 10/04/21 10/04/21 21:59 05:59 13:59 Intake Total 2180 650 1100 Output Total 1650 2500 825 Balance 530 -1850 275 Weight 66.587 kg Intake & Output: Intake & Output 10/03/21 10/04/21 10/04/21 21:59 05:59 13:59 Intake Total 2180 650 1100 Output Total 1650 2500 825 Balance 530 -1850 275 Weight 66.587 kg Intake: Oral 2180 650 1100 Output: Urine Catheter Amount 2100 Void Amount 400 825 Emesis 1250 400 Other: Meal snack Percent of Meal Consumed 100% Feeding Ability Independent Urine Appearance Clear Cloudy Clear Urine Color Dark Yellow Pale Straw Urine Odor Normal General appearance: cooperative, disheveled and mild distress Exam: lethargic Head Head exam: Present atraumatic and normal inspection Eye Eye exam: Present normal appearance ENT ENT exam: Present mucous membranes moist, normal exam and normal external ear exam Neck Neck exam: Present normal inspection Respiratory Respiratory exam: Present normal respiratory exam Cardiovascular Cardiovascular exam: Present normal rate and rhythm GI/Abdominal GI/Abdominal exam: Present normal bowel sounds Back Exam Back exam: Present normal inspection Neurological Exam Neurological exam: Present alert and oriented X3 Skin Skin exam: Present intact and warm OBJ DATA Labs CBC & Chem 7: 10/04/21 05:36 10/03/21 05:20 Labs: Abnormal Lab Results 10/04/21 10/03/21 10/03/21 05:36 05:20 05:20 WBC RBC 3.89 L 3.87 L Hgb 12.0 L 11.8 L Hct 36.9 L 36.7 L Neut % (Auto) 78.7 H Lymph % (Auto) 12.8 L Lymph # (Auto) 0.88 L Absolute Neutrophils ABG Methemoglobin VBG pH VBG pCO2 VBG pO2 VBG HCO3 VBG Total CO2 VBG O2 Saturation VBG Base Excess Carboxyhemoglobin Total Hemoglobin Chloride Carbon Dioxide Anion Gap 6.0 L Creatinine 0.5 L Glucose 36 L* Calcium 8.5 L AST 44 H ALT 40 H Alkaline Phosphatase 213 H Lactate Dehydrogenase 243 H Albumin 3.0 L Albumin/Globulin Ratio 0.9 L Triglycerides 192 H 10/02/21 10/02/21 10/01/21 05:09 05:09 20:31 WBC 11.7 H RBC 3.83 L Hgb 11.5 L Hct 36.1 L Neut % (Auto) Lymph % (Auto) Lymph # (Auto) Absolute Neutrophils 8.55 H ABG Methemoglobin 0.2 L VBG pH VBG pCO2 37.7 L VBG pO2 113.3 H VBG HCO3 23.5 L VBG Total CO2 24.7 L VBG O2 Saturation 93.6 H VBG Base Excess Carboxyhemoglobin 4.4 H Total Hemoglobin 12.6 L Chloride Carbon Dioxide Anion Gap Creatinine Glucose Calcium 8.2 L AST 50 H ALT 44 H Alkaline Phosphatase 206 H Lactate Dehydrogenase 247 H Albumin 3.1 L Albumin/Globulin Ratio Triglycerides 190 H 10/01/21 10/01/21 10/01/21 16:48 12:37 12:37 WBC RBC Hgb Hct Neut % (Auto) Lymph % (Auto) Lymph # (Auto) Absolute Neutrophils ABG Methemoglobin 0.2 L 0 L VBG pH 7.48 H VBG pCO2 28.6 L VBG pO2 67.0 H 116.9 H VBG HCO3 20.8 L VBG Total CO2 21.7 L VBG O2 Saturation 90.4 H 88.8 H VBG Base Excess Carboxyhemoglobin 3.4 H 9.6 H Total Hemoglobin 13.3 L Chloride Carbon Dioxide 16 L Anion Gap Creatinine Glucose Calcium AST ALT Alkaline Phosphatase Lactate Dehydrogenase Albumin Albumin/Globulin Ratio Triglycerides 10/01/21 10/01/21 10/01/21 08:44 08:43 06:34 WBC RBC Hgb Hct Neut % (Auto) Lymph % (Auto) Lymph # (Auto) Absolute Neutrophils ABG Methemoglobin 0.3 L VBG pH VBG pCO2 25.3 L VBG pO2 125.7 H VBG HCO3 15.0 L VBG Total CO2 15.8 L VBG O2 Saturation 92.7 H VBG Base Excess -8 L Carboxyhemoglobin 5.4 H Total Hemoglobin Chloride 95 L Carbon Dioxide 15 L 12 L Anion Gap 21.0 H 26.0 H Creatinine Glucose 400 H Calcium 8.5 L AST 90 H ALT 61 H Alkaline Phosphatase 216 H Lactate Dehydrogenase 328 H Albumin Albumin/Globulin Ratio Triglycerides 154 H Meds: Medications Albuterol/Ipratropium (Ipratropium/Albuterol 3 Ml Ampul.Neb) 3 ml NEB Q4HRT PRN PRN Reason: Wheezing Cetirizine HCl (Cetirizine 10 Mg Tablet) 10 mg PO DAILY [facility] Last Admin: 10/03/21 09:38 Dose: 10 mg Documented by: Diagnostic Test (Pha) (Accu-Chek 1 Each Strip) 1 each FS [facility] Last Admin: 10/04/21 07:15 Dose: 1 each Documented by: Docusate Sodium (Docusate Sodium 100 Mg Capsule) 100 mg PO BID [facility] Last Admin: 10/03/21 20:20 Dose: 100 mg Documented by: Enoxaparin Sodium (Enoxaparin 40 Mg/0.4 Ml Syringe) 40 mg SQ DAILY [facility] Last Admin: 10/03/21 09:31 Dose: 40 mg Documented by: Gabapentin (Gabapentin 300 Mg Capsule) 600 mg PO BID [facility] Last Admin: 10/03/21 20:20 Dose: 600 mg Documented by: Haloperidol Lactate (Haloperidol Lactate 5 Mg/Ml Vial) 2 mg IV Q4HP PRN PRN Reason: ANXIETY/SEDATION Insulin Human Regular 50 unit/ (Sodium Chloride) 100 mls @ 0 mls/hr IV DUR [facility]; Protocol Ibuprofen (Ibuprofen 600 Mg Tablet) 600 mg PO Q6HP PRN; Protocol PRN Reason: Fever Or Pain Last Admin: 10/03/21 15:12 Dose: 600 mg Documented by: Insulin Glargine (Insulin Glargine, Human 1 Unit/0.01 Ml) 16 unit SQ BID [facility] Last Admin: 10/03/21 20:20 Dose: 16 unit Documented by: Insulin Human Lispro (Insulin Lispro 1 Unit/0.01 Ml Unit) 0 unit SQ ACHS [facility]; Protocol Last Admin: 10/04/21 07:15 Dose: 18 units Documented by: Lisinopril (Lisinopril 2.5 Mg Tablet) 2.5 mg PO DAILY [facility] Last Admin: 10/03/21 10:21 Dose: Not Given Documented by: Lorazepam (Lorazepam 2 Mg/Ml Vial) 1 mg IV Q2-4HP PRN PRN Reason: ANXIETY/SEDATION Last Admin: 10/04/21 00:42 Dose: 1 mg Documented by: Montelukast Sodium (Montelukast 10 Mg Tablet) 10 mg PO DAILY [facility] Last Admin: 10/03/21 09:31 Dose: 10 mg Documented by: Omeprazole (Omeprazole 20 Mg Capsule) 20 mg PO QAMAC [facility] Last Admin: 10/04/21 07:18 Dose: 20 mg Documented by: Ondansetron HCl (Ondansetron 4 Mg/2 Ml Vial) 4 mg IV Q4-6HP PRN; Protocol PRN Reason: Nausea And Vomiting Last Admin: 10/04/21 05:38 Dose: 4 mg Documented by: Fluticasone Hfa (250mcg Inhaler) 1 dose INH BID [facility] Last Admin: 10/03/21 21:34 Dose: 1 dose Documented by: Promethazine HCl (Promethazine 25 Mg/Ml Vial) 25 mg IV Q6HP PRN PRN Reason: Nausea And Vomiting Last Admin: 10/04/21 07:08 Dose: 25 mg Documented by: Senna (Sennosides 1 Tablet) 1 tab PO DAILYP PRN PRN Reason: Constipation Sodium Chloride (0.9 % Sodium Chloride 10 Ml Syringe) 10 ml IV Q8 [facility] Last Admin: 10/04/21 05:50 Dose: 10 ml Documented by: Trazodone HCl (Trazodone Hcl 50 Mg Tablet) 50 mg PO HS [facility] Last Admin: 10/03/21 20:37 Dose: 50 mg Documented by: ABG Interpretation ABG results: 10/01/21 10/01/21 10/01/21 06:36 08:44 12:37 ABG Methemoglobin 0.3 L 0.3 L 0 L VBG pH 7.32 7.39 7.48 H VBG pCO2 24.2 L 25.3 L 28.6 L VBG pO2 106.6 H 125.7 H 116.9 H VBG HCO3 12.2 L 15.0 L 20.8 L VBG Total CO2 12.9 L 15.8 L 21.7 L VBG O2 Saturation 92.7 H 92.7 H 88.8 H VBG Base Excess -12 L -8 L -2 10/01/21 10/01/21 16:48 20:31 ABG Methemoglobin 0.2 L 0.2 L VBG pH 7.36 7.41 VBG pCO2 44.4 37.7 L VBG pO2 67.0 H 113.3 H VBG HCO3 24.4 23.5 L VBG Total CO2 25.8 24.7 L VBG O2 Saturation 90.4 H 93.6 H VBG Base Excess -1 -1 A/P Assessment and plan (1) Diabetic keto-acidosis: Status: Acute Qualifiers: Diabetes mellitus complication detail: without coma Diabetes mellitus type: type 1 Qualified Code(s): E10.10 - Type 1 diabetes mellitus with ketoacidosis without coma (2) Delirium: Status: Acute (3) COPD (chronic obstructive pulmonary disease): Status: Acute (4) Hyperkalemia: Status: Acute (5) Anemia, normocytic normochromic: Status: Acute Narrative A/P Narrative: Assessment and Plans: 1. Diabetic ketoacidosis associated with type diabetes mellitus: Inpatient med surg Insulin Lantus 16 unit BID SSI AC HS Accu Chek AC HS Hypoglycemia protocol Diabetic diet 2. COPD: Continue bronchodilators from home regimen 3. Hypokalemia: RESOLVED Insulin according to DKA protocol, see #1 BMP q4hr to trend serum potassium level 4. 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 Anemia, normocytic normochromic: cbc w/ auto diff in the morning to trend H/H 6. Nausea/vomiting/constipation: Zofran/Phenergan IV PRN nausea vomiting KUB to rule out ileus/bowel obstruction Bowel regimen GI ppx: not currently indicated DVT ppx: Lovenox Code status: Full Prognosis: Stable Disposition: inpatient med surg Time Spent With Patient Time: Total time spent is greater than 50% in coordination of care (as documented) at patient's floor/unit and/or counseling patient: Total time spent with greater than 50% in coordination of care (as documented) at patient's floor/unit and/or counseling patient:: 35 - 50 minutes
--- NOTE | 2021-10-04 09:11 | XRay Report ---
CLINICAL INFORMATION: nausea vomiting COMPARISON: None. FINDINGS: The stool gas pattern is unremarkable. There is no free air, soft tissue mass, organomegaly or pathologic calcification. IMPRESSION: Normal abdomen Interpreted and Authenticated by: Yomi Kaur 10/04/21
[2021-10-04] MEDS: DOCUSATE SODIUM 100 MG CAPSULE PO SCH ×2 (10:24→21:14)
[2021-10-04] MEDS: CETIRIZINE 10 MG TABLET PO SCH (10:24)
[2021-10-04] MEDS: MONTELUKAST 10 MG TABLET PO SCH (10:24)
[2021-10-04] MEDS: ENOXAPARIN 40 MG/0.4 ML SYRINGE SQ SCH (10:25)
[2021-10-04] MEDS: FLUTICASONE 250 MCG INH SCH ×2 (10:25→21:15)
[2021-10-04] MEDS: INSULIN GLARGINE, HUMAN 1 UNIT/0.01 ML SQ SCH ×2 (10:25→21:12)
[2021-10-04] MEDS: GABAPENTIN 300 MG CAPSULE PO SCH ×2 (10:25→21:14)
[2021-10-04] MEDS: LISINOPRIL 2.5 MG TABLET PO SCH (10:30)
--- NOTE | 2021-10-04 12:52 | Internal Med Progress Note ---
SUBJECTIVE Subjective Patient information: Note initiated : 10/04/21 at 12:44 pm Service Date, if different from initiated Date: [] Patient: Kelvin Plunkett a 40 y/o M admitted on 10/01/21 for Diabetic Hyperglycemia. Chief Complaint: [] Interval history: History of present illness: Mr. Plunkett is a 40 year old M of COPD, type 1 diabetes mellitus, presented with altered mental status. Patient was found by neighbor to be wandering in his neighborhood earlier this morning, and he was being sent to our ER by EMS for further evaluations. Due to his clinical situations and mental status, he is unable to provide much history. There is also no family or friends or caregivers homecare available to provide any useful history. Patient's labs significant for elevated blood sugar 816. Leukocytosis with WBC 16.2. VBG showing pH 7.17, bicarb 10.6, anion gap 33, sodium 126 (corrected sodium 137), potassium 5.3, lactic acid 4.4, beta hydroxybutyrate pending. Urine drug screen result pending. UA does not suggest the presence of urinary tract infections. Chest x- ray no focal infiltrates. Head CT unremarkable. Fluid boluses given in the ED, insulin drip started, and admission request for continued insulin drip according to DKA protocol is requested. 10/02: Insulin drip was switched off yesterday evening. Patient's was transitioned to subcutaneous insulin therapy. Fasting glucose 122 this morning. 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 Already transferred from ICU to [facility]. We will continue subcutaneous insulin therapy while awaiting patient's mentations to go back to his baseline before discharging him home. 10/03: Fasting glucose 36 this morning. He is waking up more this morning relative to yesterday. Good appetite, finished dinner last night and breakfast this morning. Still c/o confusion, A&O X2 to person and place only. d/c long active insulin Lantus, continue SSI. Continue to monitor for his mental status. 10/04: She does complain of nausea, vomiting, and constipation's. He is also complaining of loss of appetite. In addition, he is also committing of anxiety and agitations. Fasting glucose 347, without overnight hypoglycemic episodes. Order KUB to rule out ileus or bowel obstruction. Zofran/Phenergan PRN nausea vomiting. Continue Lantus and SSI for glycemic control. Continue to monitor for symptoms associated with methamphetamine abuse. 10/05 Constitutional Vitals: Vital Signs Temp Pulse Resp BP Pulse Ox 98.4 F 95 H 17 127/79 96 10/04/21 11:42 10/04/21 11:42 10/04/21 11:42 10/04/21 11:42 10/04/21 11:42 Period Temp Pulse Resp BP Sys/Wong Pulse Ox Last 24 Hr 97.6 F-98.4 F 72-120 127-170/79-137 84-100 Intake and Output 10/03/21 10/04/21 10/04/21 21:59 05:59 13:59 Intake Total 2180 650 1100 Output Total 1650 2500 1825 Balance 530 -1850 -725 Weight 66.587 kg Intake & Output: Intake & Output 10/03/21 10/04/21 10/04/21 21:59 05:59 13:59 Intake Total 2180 650 1100 Output Total 1650 2500 1825 Balance 530 -1850 -725 Weight 66.587 kg Intake: Oral 2180 650 1100 Output: Urine Catheter Amount 2100 Void Amount 400 1825 Emesis 1250 400 Other: Meal snack Percent of Meal Consumed 100% Feeding Ability Independent Urine Appearance Clear Cloudy Clear Urine Color Dark Yellow Pale Pale Urine Odor Normal Exam: General: Alert, Awake, No acute Distress Eyes/N/T: EOMI, Head/Neck: neck supple, CV: RRR, No murmurs, Pulm: Clear b/l, no wheezing/rhonchi/rales Abd: soft, nontender, +BS x4 Ext: no clubbing/cyanosis/edema Neuro: Alert, no focal deficits, moves all extremities, Skin: warm/dry OBJ DATA Labs CBC & Chem 7: 10/04/21 05:36 10/03/21 05:20 Labs: Abnormal Lab Results 10/04/21 10/03/21 10/03/21 05:36 05:20 05:20 WBC RBC 3.89 L 3.87 L Hgb 12.0 L 11.8 L Hct 36.9 L 36.7 L Neut % (Auto) 78.7 H Lymph % (Auto) 12.8 L Lymph # (Auto) 0.88 L Absolute Neutrophils ABG Methemoglobin VBG pH VBG pCO2 VBG pO2 VBG HCO3 VBG Total CO2 VBG O2 Saturation Carboxyhemoglobin Total Hemoglobin Carbon Dioxide Anion Gap 6.0 L Creatinine 0.5 L Glucose 36 L* Calcium 8.5 L AST 44 H ALT 40 H Alkaline Phosphatase 213 H Lactate Dehydrogenase 243 H Albumin 3.0 L Albumin/Globulin Ratio 0.9 L Triglycerides 192 H 10/02/21 10/02/21 10/01/21 05:09 05:09 20:31 WBC 11.7 H RBC 3.83 L Hgb 11.5 L Hct 36.1 L Neut % (Auto) Lymph % (Auto) Lymph # (Auto) Absolute Neutrophils 8.55 H ABG Methemoglobin 0.2 L VBG pH VBG pCO2 37.7 L VBG pO2 113.3 H VBG HCO3 23.5 L VBG Total CO2 24.7 L VBG O2 Saturation 93.6 H Carboxyhemoglobin 4.4 H Total Hemoglobin 12.6 L Carbon Dioxide Anion Gap Creatinine Glucose Calcium 8.2 L AST 50 H ALT 44 H Alkaline Phosphatase 206 H Lactate Dehydrogenase 247 H Albumin 3.1 L Albumin/Globulin Ratio Triglycerides 190 H 10/01/21 10/01/21 10/01/21 16:48 12:37 12:37 WBC RBC Hgb Hct Neut % (Auto) Lymph % (Auto) Lymph # (Auto) Absolute Neutrophils ABG Methemoglobin 0.2 L 0 L VBG pH 7.48 H VBG pCO2 28.6 L VBG pO2 67.0 H 116.9 H VBG HCO3 20.8 L VBG Total CO2 21.7 L VBG O2 Saturation 90.4 H 88.8 H Carboxyhemoglobin 3.4 H 9.6 H Total Hemoglobin 13.3 L Carbon Dioxide 16 L Anion Gap Creatinine Glucose Calcium AST ALT Alkaline Phosphatase Lactate Dehydrogenase Albumin Albumin/Globulin Ratio Triglycerides Meds: Medications Albuterol/Ipratropium (Ipratropium/Albuterol 3 Ml Ampul.Neb) 3 ml NEB Q4HRT PRN PRN Reason: Wheezing Cetirizine HCl (Cetirizine 10 Mg Tablet) 10 mg PO DAILY [facility] Last Admin: 10/04/21 10:24 Dose: 10 mg Documented by: Diagnostic Test (Pha) (Accu-Chek 1 Each Strip) 1 each FS ACHS [facility] Last Admin: 10/04/21 12:00 Dose: 1 each Documented by: Docusate Sodium (Docusate Sodium 100 Mg Capsule) 100 mg PO BID [facility] Last Admin: 10/04/21 10:24 Dose: 100 mg Documented by: Enoxaparin Sodium (Enoxaparin 40 Mg/0.4 Ml Syringe) 40 mg SQ DAILY [facility] Last Admin: 10/04/21 10:25 Dose: 40 mg Documented by: Gabapentin (Gabapentin 300 Mg Capsule) 600 mg PO BID [facility] Last Admin: 10/04/21 10:25 Dose: 600 mg Documented by: Haloperidol Lactate (Haloperidol Lactate 5 Mg/Ml Vial) 2 mg IV Q4HP PRN PRN Reason: ANXIETY/SEDATION Insulin Human Regular 50 unit/ (Sodium Chloride) 100 mls @ 0 mls/hr IV DUR [facility]; Protocol Ibuprofen (Ibuprofen 600 Mg Tablet) 600 mg PO Q6HP PRN; Protocol PRN Reason: Fever Or Pain Last Admin: 10/03/21 15:12 Dose: 600 mg Documented by: Insulin Glargine (Insulin Glargine, Human 1 Unit/0.01 Ml) 16 unit SQ BID [facility] Last Admin: 10/04/21 10:25 Dose: 16 unit Documented by: Insulin Human Lispro (Insulin Lispro 1 Unit/0.01 Ml Unit) 0 unit SQ [facility]; Protocol Last Admin: 10/04/21 12:03 Dose: Not Given Documented by: Lisinopril (Lisinopril 2.5 Mg Tablet) 2.5 mg PO DAILY [facility] Last Admin: 10/04/21 10:30 Dose: 2.5 mg Documented by: Lorazepam (Lorazepam 2 Mg/Ml Vial) 1 mg IV Q2-4HP PRN PRN Reason: ANXIETY/SEDATION Last Admin: 10/04/21 00:42 Dose: 1 mg Documented by: Montelukast Sodium (Montelukast 10 Mg Tablet) 10 mg PO DAILY [facility] Last Admin: 10/04/21 10:24 Dose: 10 mg Documented by: [facility]eprazole ([facility]) [facility] Admin: 10/04/21 07:18 Dose: 20 mg Documented by: Ondansetron HCl (Ondansetron 4 Mg/2 Ml Vial) 4 mg IV Q4-6HP PRN; Protocol PRN Reason: Nausea And Vomiting Last Admin: 10/04/21 05:38 Dose: 4 mg Documented by: Fluticasone Hfa (250mcg Inhaler) 1 dose INH BID [facility] Last Admin: 10/04/21 10:25 Dose: 1 dose Documented by: Promethazine HCl (Promethazine 25 Mg/Ml Vial) 25 mg IV Q6HP PRN PRN Reason: Nausea And Vomiting Last Admin: 10/04/21 07:08 Dose: 25 mg Documented by: Senna (Sennosides 1 Tablet) 1 tab PO DAILYP PRN PRN Reason: Constipation Sodium Chloride (0.9 % Sodium Chloride 10 Ml Syringe) 10 ml IV Q8 [facility] Last Admin: 10/04/21 05:50 Dose: 10 ml Documented by: Trazodone HCl (Trazodone Hcl 50 Mg Tablet) 50 mg PO HS [facility] Last Admin: 10/03/21 20:37 Dose: 50 mg Documented by: ABG Interpretation ABG results: 10/01/21 10/01/21 10/01/21 06:36 08:44 12:37 ABG Methemoglobin 0.3 L 0.3 L 0 L VBG pH 7.32 7.39 7.48 H VBG pCO2 24.2 L 25.3 L 28.6 L VBG pO2 106.6 H 125.7 H 116.9 H VBG HCO3 12.2 L 15.0 L 20.8 L VBG Total CO2 12.9 L 15.8 L 21.7 L VBG O2 Saturation 92.7 H 92.7 H 88.8 H VBG Base Excess -12 L -8 L -2 10/01/21 10/01/21 16:48 20:31 ABG Methemoglobin 0.2 L 0.2 L VBG pH 7.36 7.41 VBG pCO2 44.4 37.7 L VBG pO2 67.0 H 113.3 H VBG HCO3 24.4 23.5 L VBG Total CO2 25.8 24.7 L VBG O2 Saturation 90.4 H 93.6 H VBG Base Excess -1 -1 A/P Assessment and plan (1) Diabetic keto-acidosis: Status: Acute Qualifiers: Diabetes mellitus complication detail: without coma Diabetes mellitus type: type 1 Qualified Code(s): E10.10 - Type 1 diabetes mellitus with ketoacidosis without coma (2) Delirium: Status: Acute (3) COPD (chronic obstructive pulmonary disease): Status: Acute (4) Hyperkalemia: Status: Acute (5) Anemia, normocytic normochromic: Status: Acute Narrative A/P Narrative: A: #DKA (DM I): - A1c 9.5 #COPD/Asthma: #TAMIKO : resolved with IVF #Nausea/vomiting/constipation: #Hypokalemia: Resolved #Acute delirium: 2/2 methamphetamine abuse #Substance use disorder w/ hx of IVDU: #Anemia: #GERD: #Cognitive impairment: possible traumatic brain injury P: -restarted home Lantus and increased to 16 units BID(titrate up as needed), and SSI. -IS -Monitor and replete electrolytes -Substance abuse counseling, recommend follow-up with Dr. Muro -DVT ppx: lovenox Time Spent With Patient Time: Total time spent is greater than 50% in coordination of care (as documented) at patient's floor/unit and/or counseling patient:
--- NOTE | 2021-10-04 12:52 | Discharge Summary ---
Discharge Provider Provider IMPORTANT FOLLOW-UP INFORMATION FOR PCP: Patient information: Note initiated : 10/04/21 at 12:52 pm Service Date, if different from initiated Date: [] Patient: Kelvin Plunkett 40 y/o M admitted on 10/01/21 for Diabetic Hyperglycemia. Chief Complaint: [] Date of admission: 10/01/21 04:17 Discharge date: 10/05/21 Primary care physician: Tico Steel Consults: 10/01/21 Consult to Physician [CONS] Stat Comment: Consulting Provider: Yosef Escobra Reason For Exam: Physician to Consult COURSE Hospital Course Hospital course: History of present illness: Mr. Plunkett is a 40 year old M of COPD, type 1 diabetes mellitus, presented with altered mental status. Patient was found by neighbor to be wandering in his neighborhood earlier this morning, and he was being sent to our ER by EMS for further evaluations. Due to his clinical situations and mental status, he is unable to provide much history. There is also no family or friends or caretaker grounds available to provide any useful history. Patient's labs significant for elevated blood sugar 816. Leukocytosis with WBC 16.2. VBG showing pH 7.17, bicarb 10.6, anion gap 33, sodium 126 (corrected sodium 137), potassium 5.3, lactic acid 4.4, beta hydroxybutyrate pending. Urine drug screen result pending. UA does not suggest the presence of urinary tract infections. Chest x- ray no focal infiltrates. Head CT unremarkable. Fluid boluses given in the ED, insulin drip started, and admission request for continued insulin drip according to DKA protocol is requested. 10/02: Insulin drip was switched off yesterday evening. Patient's was transitioned to subcutaneous insulin therapy. Fasting glucose 122 this morning. 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 Already transferred from ICU to [facility]. We will continue subcutaneous insulin therapy while awaiting patient's mentations to go back to his baseline before discharging him home. 10/03: Fasting glucose 36 this morning. He is waking up more this morning relative to yesterday. Good appetite, finished dinner last night and breakfast this morning. Still c/o confusion, A&O X2 to person and place only. d/c long active insulin Lantus, continue SSI. Continue to monitor for his mental status. 10/04: She does complain of nausea, vomiting, and constipation's. He is also complaining of loss of appetite. In addition, he is also committing of anxiety and agitations. Fasting glucose 347, without overnight hypoglycemic episodes. Order KUB to rule out ileus or bowel obstruction. Zofran/Phenergan PRN nausea vomiting. Continue Lantus and SSI for glycemic control. Continue to monitor for symptoms associated with methamphetamine abuse. 10/05 Slept okay but having nausea and some vomiting this morning. Started on home insulin regimen and adjusting if needed. Adjusted diet for gastroparesis diet. As needed antiemetics including Ativan and Benadryl. Trial of Reglan scheduled with meals. Per nurse he seems to engulfed his food rapidly and then developed nausea/vomiting. 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 -Substance abuse counseling, recommend follow-up with Dr. Muro Discharge diagnosis: DKA TAMIKO nausea vomiting constipation hypokalemia delirium Secondary discharge diagnosis: Substance abuse anemia GERD cognitive impairment COPD Time Spent with Patient Time attestation: Total time spent providing and/or coordinating discharge services: Time spent: Greater than 30 minutes EXAM Constitutional Vitals: Temp Pulse Resp BP Pulse Ox 98.4 F 95 H 17 127/79 96 10/04/21 11:42 10/04/21 11:42 10/04/21 11:42 10/04/21 11:42 10/04/21 11:42 Discharge Data Data Completed and Pending Labs on day of discharge: Labs from last 24 hours 10/04/21 10/04/21 05:36 05:36 WBC 6.9 RBC 3.89 L Hgb 12.0 L Hct 36.9 L MCV 94.9 MCH 30.8 MCHC 32.5 RDW 11.8 Plt Count 317 MPV 9.0 Neut % (Auto) 78.7 H Lymph % (Auto) 12.8 L [place] % (Auto) 5.8 Eos % (Auto) 2.3 Baso % (Auto) 0.4 Lymph # (Auto) 0.88 L [place] # (Auto) 0.40 Eos # (Auto) 0.16 Baso # (Auto) 0.03 Absolute Neutrophils 5.41 Phosphorus 3.0 Magnesium 1.8 Preliminary micro results at discharge 10/01/21 06:54 Blood Culture - Preliminary Blood 10/01/21 01:23 Blood Culture - Preliminary Blood Discharge Plan Patient/Caregiver Discharge Instructions Activity: increase activity as tolerated Diet: Consistent Carbohydrate Instructions: Diabetic Ketoacidosis (GEN) Prescriptions: New insulin glargine [Lantus U-100 Insulin] 100 unit/mL Solution 16 unit subcut BID Qty: 10 0RF Continued trazodone 50 MG tablet 50 mg PO HS 0RF omeprazole 20 MG capsule,delayed release(DR/EC) 20 mg PO QDAY 0RF gabapentin 600 mg tablet 600 mg PO BID 0RF (DME) lancets [Microlet Lancet] Misc MISCELLANEOUS 0RF Label Comments: USE TO TEST BLOOD SUGAR 3 TO 4 TIMES PER DAY. insulin aspart U-100 100 unit/mL (3 mL) insulin pen See Protocol unit subcut ACHS MDD 40 Qty: 15 0RF Protocol: Insulin Sliding Scale, Med Condition: HUMALOG/NOVALOG SC SLIDING Dose/Route: SCALE Condition: FSBS < 70 Dose/Route: Give 4 Oz juice, or 15gm oral Instruction: Glucose, or 25ml D50W IV if Dose/Route: unable to take PO. Recheck in Instruction: 15 min and repeat if FSBS < 70 Condition: FSBS 71-140 Dose/Route: NO COVERAGE Condition: FSBS 141-170 Dose/Route: 2 UNITS Condition: FSBS 171-200 Dose/Route: 4 UNITS Condition: FSBS 201-250 Dose/Route: 6 UNITS Condition: FSBS 251-300 Dose/Route: 8 UNITS Condition: FSBS 301-350 Dose/Route: 10 UNITS Condition: FSBS 351-400 Dose/Route: 12 UNITS Condition: FSBS > 400 Dose/Route: 14 UNITS; REPEAT Q2H X2 Instruction: CONTINUE FOLLOWING SLIDING Condition: SCALE; IF STILL > 400; CALL Dose/Route: PHYSICIAN Rx Instructions: Max units per day 39 Sliding scale insulin: FSBS 71-140 no coverage FSBS 141-170 2 units FSBS 171-200 4 units FSBS 201-250 6 units FSBS 251-300 8 units FSBS 301-350 10 units FSBS 351-400 12 units FSBS >400 14 units; repeat testing in 2 hours and treat accordingly (DME) pen needle, diabetic 30 gauge x 5/16" needle See Rx Instructions .ROUTE .MEDSUPPLY Qty: 100 0RF Rx Instructions: As directed (DME) BD Specialty Use [place] 30 gauge x 1/2" needle See Rx Instructions .ROUTE .MEDSUPPLY Qty: 100 0RF Rx Instructions: As directed Flovent Diskus 250 mcg/actuation blister with device 1 puff PO BID 0RF Follow Up Plan Follow up with: Melanie Muro DO [Physician] - (substance use) Tico Steel MD [Primary Care Provider] - Patient Disposition: Home, Self-Care Prognosis: Undetermined Overall status at discharge: patient is progressing back to baseline Discharge Orders: Discharge Order (Routine); Ordered 10/05/21 Ordered By: Jake Marquez
[2021-10-04] MEDS: IBUPROFEN 600 MG TABLET PO PRN (18:42)
[2021-10-04] MEDS: traZODone HCL 50 MG TABLET PO SCH (21:14)
[2021-10-05] MEDS: PROMETHAZINE 25 MG/ML VIAL IV PRN ×2 (03:20→10:13)
[2021-10-05] MEDS: 0.9 % SODIUM CHLORIDE 10 ML SYRINGE IV SCH ×2 (03:23→05:22)
[2021-10-05 06:40] LABS: ALT/SGPT 29 U/L (<40); AST/SGOT 27 U/L (<40); Albumin 2.8 gm/dL (3.2-5.2); Albumin/Globulin Ratio 0.8 (1.0-2.3); Alkaline Phosphatase 186 U/L (39-117); Bilirubin,Direct < 0.2 mg/dL (0-0.3); Bilirubin,Total 0.2 mg/dL (0.1-1.0); Blood Urea Nitrogen 11 mg/dL (6-20); Calcium 8.6 mg/dL (8.6-10.4); Carbon Dioxide 28 mmol/L (22-30); Chloride 97 mmol/L (96-108); Globulin 3.4 gm/dL (2.2-3.7); Glomerular Filtration Rate 116; Glucose 221 mg/dL (70-105); Lactate Dehydrogenase 213 U/L (135-225); Phosphorous 3.6 mg/dL (2.5-4.5); Triglycerides 163 mg/dL (<150); Uric Acid 2.5 mg/dL (2.5-8.0)
[2021-10-05] MEDS: OMEPRAZOLE 20 MG CAPSULE PO SCH (07:21)
[2021-10-05] MEDS: INSULIN LISPRO 1 UNIT/0.01 ML UNIT SQ SCH ×2 (07:27→11:55)
--- NOTE | 2021-10-05 07:32 | Internal Med Progress Note ---
SUBJECTIVE Subjective Patient information: Note initiated : 10/05/21 at 7:30 am Service Date, if different from initiated Date: [] Patient: Kelvin Plunkett a 40 y/o M admitted on 10/01/21 for Diabetic Hyperglycemia. Chief Complaint: [] Interval history: History of present illness: Mr. Plunkett is a 40 year old M of COPD, type 1 diabetes mellitus, presented with altered mental status. Patient was found by neighbor to be wandering in his neighborhood earlier this morning, and he was being sent to our ER by EMS for further evaluations. Due to his clinical situations and mental status, he is unable to provide much history. There is also no family or friends or healthcare manager available to provide any useful history. Patient's labs significant for elevated blood sugar 816. Leukocytosis with WBC 16.2. VBG showing pH 7.17, bicarb 10.6, anion gap 33, sodium 126 (corrected sodium 137), potassium 5.3, lactic acid 4.4, beta hydroxybutyrate pending. Urine drug screen result pending. UA does not suggest the presence of urinary tract infections. Chest x- ray no focal infiltrates. Head CT unremarkable. Fluid boluses given in the ED, insulin drip started, and admission request for continued insulin drip according to DKA protocol is requested. 10/02: Insulin drip was switched off yesterday evening. Patient's was transitioned to subcutaneous insulin therapy. Fasting glucose 122 this morning. 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 Already transferred from ICU to [facility]. We will continue subcutaneous insulin therapy while awaiting patient's mentations to go back to his baseline before discharging him home. 10/03: Fasting glucose 36 this morning. He is waking up more this morning relative to yesterday. Good appetite, finished dinner last night and breakfast this morning. Still c/o confusion, A&O X2 to person and place only. d/c long active insulin Lantus, continue SSI. Continue to monitor for his mental status. 10/04: She does complain of nausea, vomiting, and constipation's. He is also c omplaining of loss of appetite. In addition, he is also committing of anxiety and agitations. Fasting glucose 347, without overnight hypoglycemic episodes. Order KUB to rule out ileus or bowel obstruction. Zofran/Phenergan PRN nausea vomiting. Continue Lantus and SSI for glycemic control. Continue to monitor for symptoms associated with methamphetamine abuse. 10/05 Slept okay but having nausea and some vomiting this morning. Started on home insulin regimen and adjusting if needed. Adjusted diet for gastroparesis diet. As needed antiemetics including Ativan and Benadryl. Trial of Reglan scheduled with meals. Review of Systems: denies headache/fever/chills/chest or abdominal pain/cough/dyspnea/diarrhea. Otherwise see above. Constitutional Vitals: Vital Signs Temp Pulse Resp BP Pulse Ox 97.0 F 88 20 114/72 98 10/05/21 07:07 10/05/21 07:07 10/05/21 07:07 10/05/21 07:07 10/05/21 07:07 Period Temp Pulse Resp BP Sys/Wong Pulse Ox Last 24 Hr 97.0 F-99.0 F 80-98 16-20 98-144/63-83 95-99 Intake and Output 10/04/21 10/05/21 10/05/21 21:59 05:59 13:59 Intake Total 1300 2360 Output Total 850 1000 Balance 450 1360 Weight 66.043 kg Intake & Output: Intake & Output 10/04/21 10/05/21 10/05/21 21:59 05:59 13:59 Intake Total 1300 2360 Output Total 850 1000 Balance 450 1360 Weight 66.043 kg Intake: Oral 1300 2360 Output: Void Amount 850 1000 Other: Meal 2x peanutbutter cup, 4x saltines, egg salad Peanut butter cup x1. Percent of Meal Consumed 100% 100% Feeding Ability Independent Independent Urine Appearance Clear Clear Urine Color Bright Yellow Bright Yellow Exam: General: Alert, Awake, mild discomfort from nausea and vomiting Eyes/N/T: EOMI, Head/Neck: neck supple, CV: RRR, No murmurs, Pulm: Clear b/l, no wheezing/rhonchi/rales Abd: soft, nontender, +BS x4 Ext: no clubbing/cyanosis/edema Neuro: Alert, no focal deficits, moves all extremities, Skin: warm/dry OBJ DATA Labs CBC & Chem 7: 10/04/21 05:36 10/05/21 05:21 Labs: Abnormal Lab Results 10/05/21 10/04/21 10/03/21 05:21 05:36 05:20 RBC 3.89 L Hgb 12.0 L Hct 36.9 L Neut % (Auto) 78.7 H Lymph % (Auto) 12.8 L Lymph # (Auto) 0.88 L Anion Gap 6.0 L Creatinine 0.5 L Glucose 221 H 36 L* Calcium 8.5 L GGT 7 L AST 44 H ALT 40 H Alkaline Phosphatase 186 H 213 H Lactate Dehydrogenase 243 H Albumin 2.8 L 3.0 L Albumin/Globulin Ratio 0.8 L 0.9 L Triglycerides 163 H 192 H 10/03/21 05:20 RBC 3.87 L Hgb 11.8 L Hct 36.7 L Neut % (Auto) Lymph % (Auto) Lymph # (Auto) Anion Gap Creatinine Glucose Calcium GGT AST ALT Alkaline Phosphatase Lactate Dehydrogenase Albumin Albumin/Globulin Ratio Triglycerides Meds: Medications Albuterol/Ipratropium (Ipratropium/Albuterol 3 Ml Ampul.Neb) 3 ml NEB Q4HRT PRN PRN Reason: Wheezing Cetirizine HCl (Cetirizine 10 Mg Tablet) 10 mg PO DAILY [facility] Last Admin: 10/04/21 10:24 Dose: 10 mg Documented by: Diagnostic Test (Pha) (Accu-Chek 1 Each Strip) 1 each FS ACHS [facility] Last Admin: 10/05/21 07:23 Dose: 1 each Documented by: Docusate Sodium (Docusate Sodium 100 Mg Capsule) 100 mg PO BID [facility] Last Admin: 10/04/21 21:14 Dose: 100 mg Documented by: Enoxaparin Sodium (Enoxaparin 40 Mg/0.4 Ml Syringe) 40 mg SQ DAILY [facility] Last Admin: 10/04/21 10:25 Dose: 40 mg Documented by: Gabapentin (Gabapentin 300 Mg Capsule) 600 mg PO BID [facility] Last Admin: 10/04/21 21:14 Dose: 600 mg Documented by: Haloperidol Lactate (Haloperidol Lactate 5 Mg/Ml Vial) 2 mg IV Q4HP PRN PRN Reason: ANXIETY/SEDATION Insulin Human Regular 50 unit/ (Sodium Chloride) 100 mls @ 0 mls/hr IV DUR DEACON; Protocol Ibuprofen (Ibuprofen 600 Mg Tablet) 600 mg PO Q6HP PRN; Protocol PRN Reason: Fever Or Pain Last Admin: 10/04/21 18:42 Dose: 600 mg Documented by: Insulin Glargine (Insulin Glargine, Human 1 Unit/0.01 Ml) 16 unit SQ BID [facility] Last Admin: 10/04/21 21:12 Dose: 16 units Documented by: Insulin Human Lispro (Insulin Lispro 1 Unit/0.01 Ml Unit) 0 unit SQ [facility]; Protocol Last Admin: 10/04/21 21:13 Dose: 9 units Documented by: Lisinopril (Lisinopril 2.5 Mg Tablet) 2.5 mg PO DAILY [facility] Last Admin: 10/04/21 10:30 Dose: 2.5 mg Documented by: Lorazepam (Lorazepam 2 Mg/Ml Vial) 1 mg IV Q2-4HP PRN PRN Reason: ANXIETY/SEDATION Last Admin: 10/04/21 00:42 Dose: 1 mg Documented by: Montelukast Sodium (Montelukast 10 Mg Tablet) 10 mg PO DAILY [facility] Last Admin: 10/04/21 10:24 Dose: 10 mg Documented by: Omeprazole (Omeprazole 20 Mg Capsule) 20 mg PO [facility] Last Admin: 10/05/21 07:21 Dose: 20 mg Documented by: Ondansetron HCl (Ondansetron 4 Mg/2 Ml Vial) 4 mg IV Q4-6HP PRN; Protocol PRN Reason: Nausea And Vomiting Last Admin: 10/04/21 05:38 Dose: 4 mg Documented by: Fluticasone Hfa (250mcg Inhaler) 1 dose INH BID [facility] Last Admin: 10/04/21 21:15 Dose: 1 dose Documented by: Promethazine HCl (Promethazine 25 Mg/Ml Vial) 25 mg IV Q6HP PRN PRN Reason: Nausea And Vomiting Last Admin: 10/05/21 03:20 Dose: 25 mg Documented by: Senna (Sennosides 1 Tablet) 1 tab PO DAILYP PRN PRN Reason: Constipation Sodium Chloride (0.9 % Sodium Chloride 10 Ml Syringe) 10 ml IV Q8 [facility] Last Admin: 10/05/21 05:22 Dose: 10 ml Documented by: Trazodone HCl (Trazodone Hcl 50 Mg Tablet) 50 mg PO HS [facility] Last Admin: 10/04/21 21:14 Dose: 50 mg Documented by: ABG Interpretation ABG results: 10/01/21 10/01/21 10/01/21 06:36 08:44 12:37 ABG Methemoglobin 0.3 L 0.3 L 0 L VBG pH 7.32 7.39 7.48 H VBG pCO2 24.2 L 25.3 L 28.6 L VBG pO2 106.6 H 125.7 H 116.9 H VBG HCO3 12.2 L 15.0 L 20.8 L VBG Total CO2 12.9 L 15.8 L 21.7 L VBG O2 Saturation 92.7 H 92.7 H 88.8 H VBG Base Excess -12 L -8 L -2 10/01/21 10/01/21 16:48 20:31 ABG Methemoglobin 0.2 L 0.2 L VBG pH 7.36 7.41 VBG pCO2 44.4 37.7 L VBG pO2 67.0 H 113.3 H VBG HCO3 24.4 23.5 L VBG Total CO2 25.8 24.7 L VBG O2 Saturation 90.4 H 93.6 H VBG Base Excess -1 -1 A/P Assessment and plan (1) Diabetic keto-acidosis: Status: Acute Qualifiers: Diabetes mellitus complication detail: without coma Diabetes mellitus type: type 1 Qualified Code(s): E10.10 - Type 1 diabetes mellitus with ketoacidosis without coma (2) Delirium: Status: Acute (3) COPD (chronic obstructive pulmonary disease): Status: Acute (4) Hyperkalemia: Status: Acute (5) Anemia, normocytic normochromic: Status: Acute Narrative A/P Narrative: A: #DKA (DM I): - A1c 9.5 #COPD/Asthma: #TAMIKO : resolved with IVF #Nausea/vomiting: ?gastroparesis #Hypokalemia: Resolved #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 -Reglan trial -Antiemetics -IS -Monitor and replete electrolytes -Substance abuse counseling, recommend follow-up with Dr. Muro -DVT ppx: lovenox Time Spent With Patient Time: Total time spent is greater than 50% in coordination of care (as documented) at patient's floor/unit and/or counseling patient: Total time spent with greater than 50% in coordination of care (as documented) at patient's floor/unit and/or counseling patient:: 25 - 35 minutes
[2021-10-05] MEDS: ONDANSETRON 4 MG/2 ML VIAL IV PRN (08:00)
[2021-10-05] MEDS ORDERED: diphenhydrAMINE 50 MG/ML VIAL IV PRN (08:54)
[2021-10-05] MEDS ORDERED: LORazepam 2 MG/ML VIAL IV PRN (08:58)
[2021-10-05] MEDS ORDERED: POLYETHYLENE GLYCOL 3350 17 GM PACKET PO PRN (09:59)
[2021-10-05] MEDS ORDERED: SENNOSIDES 1 TABLET PO PRN (10:01)
[2021-10-05] MEDS ORDERED: LACTULOSE 20 GM/30 ML ORAL.SOL PO PRN (10:02)
[2021-10-05] MEDS ORDERED: SENNOSIDES 1 TABLET PO SCH (10:10)
[2021-10-05] MEDS ORDERED: POLYETHYLENE GLYCOL 3350 17 GM PACKET PO SCH (10:10)
[2021-10-05] MEDS: ENOXAPARIN 40 MG/0.4 ML SYRINGE SQ SCH (10:12)
[2021-10-05] MEDS: METOCLOPRAMIDE 10 MG TABLET PO SCH ×2 (10:13→12:11)
[2021-10-05] MEDS: INSULIN GLARGINE, HUMAN 1 UNIT/0.01 ML SQ SCH (10:13)
[2021-10-05] MEDS: CETIRIZINE 10 MG TABLET PO SCH (11:53)
[2021-10-05] MEDS: MONTELUKAST 10 MG TABLET PO SCH (11:55)
[2021-10-05] MEDS: DOCUSATE SODIUM 100 MG CAPSULE PO SCH (12:07)
[2021-10-05] MEDS: GABAPENTIN 300 MG CAPSULE PO SCH (12:07)
[2021-10-05] MEDS: LISINOPRIL 2.5 MG TABLET PO SCH (12:11)
[2021-10-05] MEDS: FLUTICASONE 250 MCG INH SCH (12:31)
== END 2021-10-05 13:10 | disposition home or self-care (01) | DRG 638 ==
LOC: ED 01:09 → ICU 04:17 → MEDSUR 10-04 10:40
PROVIDERS: ADMIT Internal Medicine; ATTEND Internal Medicine

== ENCOUNTER 2021-10-19 18:05 | Observation (INO) ==
--- NOTE | 2021-10-19 18:42 | Emergency Department Note ---
Upper Extremity HPI General Chief Complaint: Extremity Injury, Upper Stated Complaint: Left hand swollen Time Seen by Provider: 10/19/21 18:11 Mode of arrival: EMS Limitations: no limitations History of Present Illness HPI Narrative: Narrative: 41-year-old male with a history of anemia, methamphetamine abuse, TBI, Craniotomy, COPD, sinusitis, type 1 diabetes, and a history of diabetic ketoacidosis presents the ER to be evaluated for a tender and swollen left index finger. He states he was admitted approximately 2 weeks ago here for DKA he woke up in the hospital and he says he has been fatigued and out of it since then. His finger has been worsening over that time and the last few days it is gotten swollen and its painful to move. He denies any history of IV drug use, denies fever, chills, body aches, nausea, vomiting or, chest pain or chest pressure. He says he is generally felt weak. He has a HX of MRSA infection. Related Data Home Medications Medication Instructions Recorded Confirmed omeprazole 20 mg capsule,delayed 20 mg PO QDAY 04/01/18 10/02/21 release trazodone 50 mg tablet 50 mg PO HS 04/01/18 10/02/21 gabapentin 600 mg tablet 600 mg PO BID 06/11/20 10/02/21 lancets (Microlet Lancet) 06/11/20 10/02/21 fluticasone propionate 250 1 puff PO BID 10/03/21 10/03/21 mcg/actuation blister powder for inhalation (Flovent Diskus) Previous Rx's Medication Instructions Recorded insulin aspart U-100 100 unit/mL See Protocol SUBCUT ACHS #15 ml 06/15/20 (3 mL) subcutaneous pen MDD 40 needle (disp) 30 gauge 30 gauge x #100 ea 06/15/20 1/2" (BD Specialty Use [place]) pen needle, diabetic 30 gauge x #100 ea 06/15/20 5/16" insulin glargine 100 unit/mL 16 unit (0.16 mL) SUBCUT BID #10 ml 10/04/21 subcutaneous solution (Lantus U-100 Insulin) Allergies Allergy/AdvReac Type Severity Reaction Status Date / Time No Known Drug Allergies Allergy Verified 10/19/21 18:16 Review of Systems ROS ROS Narrative: Narrative: All systems ED: reviewed and negative except as stated. PFSH Narrative Patient History Narrative: Narrative: Medical/Surgical/Family History All Active Problems (Updated 10/19/21 @ 20:17 by Larry Castano PA-C) Flexor tenosynovitis of finger (Acute) Anemia, normocytic normochromic (Acute) Methamphetamine abuse (Acute) Hyperkalemia (Acute) COPD (chronic obstructive pulmonary disease) (Acute) Gastroenteritis (Acute) Sinusitis (Acute) Diabetes (Acute) Hyperglycemia (Acute) Genital herpes (Acute) Abscess of skin or subcutaneous tissue (Acute) Degenerative disc disease, thoracic (Acute) Abscess (Acute) Diabetic keto-acidosis (Acute) Hypoglycemia (Acute) Diabetes mellitus out of control (Acute) Diabetic keto-acidosis (Acute) Delirium (Acute) Substance abuse (Acute) Social History Smoking Status: Unknown if ever smoked Alcohol Intake Frequency: a few times a week Substance Use: other (Unknown) Exam Narrative Narrative: Narrative: Gen: No acute distress Eyes: PERRL, no conjunctival injection , and symmetrical lids. Sclerae non icte doyle HENMT: Normocephalic Atraumatic head, external nose and ears. Moist MM. CVS: +S1/S2, No murmurs or gallops. Radial pulses 2+ and equal bilat. No swelling RESP: Unlabored respiratory effort . Clear to auscultation bilaterally (CTAB). No noted wheezes rales or ronchi. MSK: Left index finger is uniformly swollen and looks like a sausage digit, held in flexion he is tender all the way down the flexor tendon sheath to percussion. Patient has significant tenderness with extension. Suggestive of flexor tenosynovitis. Skin: Warm, Dry . No rashes or lesions . Cap refill less than 2. Psych: Awake, Alert, & Oriented (AAO) x3. Patient is very anxious General Limitations: no limitations Course Vital Signs Vital signs: Vital Signs Temperature 97.5 F 10/19/21 18:11 Pulse Rate 112 H 10/19/21 18:11 Respiratory Rate 18 10/19/21 18:11 Blood Pressure 134/87 10/19/21 18:11 Pulse Oximetry (%) 96 10/19/21 18:11 Temperature 97.5 F 10/19/21 18:11 Pulse Rate 112 H 10/19/21 18:11 Respiratory Rate 18 10/19/21 18:11 Blood Pressure 134/87 10/19/21 18:11 Pulse Oximetry (%) 96 10/19/21 18:11 MDM MDM Narrative Medical decision making narrative: Narrative: Patient exam is worrisome for flexor tenosynovitis. He will be evaluated with CBC, Chem-8, ESR and CRP. Dr. Overton was consulted regarding this and will come in and evaluate the patient. Patient last ate 2 hours ago. Patient denies IV drug use. He is afebrile at this time but he is tachycardic at 112. CBC: Uptrending anemia otherwise unremarkable no significant white count Chem-8: Unremarkable ESR: 57 elevated CRP: Normal Lactic: 3.3 Blood cultures: Pending Dr. Overton: Arslan Castanon physician material assistant came in and evaluated the patient he reviewed images with Dr. Overton they requested he be given 1 g of Rocephin intramuscularly and be discharged on Bactrim. They will follow-up with him next week to see how he is improving. I called Arslan Castanon when the lactate came back at 3.3 as well as a ESR of 57, the patient remains tachycardic at 112. Given he has a known infectious source and an elevated lactic the patient will be brought in under concern for sepsis. This was identified at approximately 8 PM.He will be started on vancomycin and Zosyn and be given an empiric fluid bolus of 30 mg/kg. Patient be reevaluated after fluid bolus and repeat lactate will be ordered for 2 hours from now. Hospitalist will be consulted for admission. Dr Escobar: Graciously agreed to admit the patient with Dr. Overton and orthopedics following on. Discharge Plan Patient/Caregiver Discharge Instructions Pt seen by ATHLETIC COACH/PA only: Yes Clinical Impression: Flexor tenosynovitis of finger Patient Disposition: Xfer As Inpt ([facility]) Follow up with: Tico Steel MD [Primary Care Provider] - Prescriptions: No Action trazodone 50 MG tablet 50 mg PO HS 0RF omeprazole 20 MG capsule,delayed release(DR/EC) 20 mg PO QDAY 0RF gabapentin 600 mg tablet 600 mg PO BID 0RF (DME) lancets [Microlet Lancet] Misc MISCELLANEOUS 0RF Label Comments: USE TO TEST BLOOD SUGAR 3 TO 4 TIMES PER DAY. insulin aspart U-100 100 unit/mL (3 mL) insulin pen See Protocol unit subcut ACHS MDD 40 Qty: 15 0RF Protocol: Insulin Sliding Scale, Med Condition: HUMALOG/NOVALOG SC SLIDING Dose/Route: SCALE Condition: FSBS < 70 Dose/Route: Give 4 Oz juice, or 15gm oral Instruction: Glucose, or 25ml D50W IV if Dose/Route: unable to take PO. Recheck in Instruction: 15 min and repeat if FSBS < 70 Condition: FSBS 71-140 Dose/Route: NO COVERAGE Condition: FSBS 141-170 Dose/Route: 2 UNITS Condition: FSBS 171-200 Dose/Route: 4 UNITS Condition: FSBS 201-250 Dose/Route: 6 UNITS Condition: FSBS 251-300 Dose/Route: 8 UNITS Condition: FSBS 301-350 Dose/Route: 10 UNITS Condition: FSBS 351-400 Dose/Route: 12 UNITS Condition: FSBS > 400 Dose/Route: 14 UNITS; REPEAT Q2H X2 Instruction: CONTINUE FOLLOWING SLIDING Condition: SCALE; IF STILL > 400; CALL Dose/Route: PHYSICIAN Rx Instructions: Max units per day 39 Sliding scale insulin: FSBS 71-140 no coverage FSBS 141-170 2 units FSBS 171-200 4 units FSBS 201-250 6 units FSBS 251-300 8 units FSBS 301-350 10 units FSBS 351-400 12 units FSBS >400 14 units; repeat testing in 2 hours and treat accordingly (DME) pen needle, diabetic 30 gauge x 5/16" needle See Rx Instructions .ROUTE .MEDSUPPLY Qty: 100 0RF Rx Instructions: As directed (DME) BD Specialty Use [place] 30 gauge x 1/2" needle See Rx Instructions .ROUTE .MEDSUPPLY Qty: 100 0RF Rx Instructions: As directed Flovent Diskus 250 mcg/actuation blister with device 1 puff PO BID 0RF insulin glargine [Lantus U-100 Insulin] 100 unit/mL Solution 16 unit subcut BID Qty: 10 0RF Plan of Treatment: On exam patient is seated bed side in no acute distress. He is animated and anxious but alert, oriented, cooperative and answers questions appropriately. At the Left index finger there is moderate swelling at the MIP joint area most prominent at the volar aspect. This is non-erythematous, no obvious puncture wounds are evident although his legs and arms exhibit multiple scabs and scars in various stages of healing. Flexion of the left index 60 degrees at the MIP and extension to 5 degrees. I had initially recommended outpatient antibiotic treatment with ceftriaxone and Bactrim, however initial labwork reveals lactic acid of 3.3, ESR of 57 and the patient has a mild tachycardia meeting at least some criteria for SIRS/ sepsis. He does continue to deny any SOB, fever, N+V or chills and is not tachypneic, with O2 sats in the mid 90s ORA. At this time we will defer surgical intervention and proceed with a conservative plan consisting of antibiotic therapy. Patient will be consulted by hospitalist service for possible admission.
[2021-10-19 18:56] LABS: POC Calcium, Ionized 1.13 (1.16-1.32); POC Creatinine 0.7 (0.6-1.2); POC Potassium 4.4 (3.3-5.1)
[2021-10-19 19:31] LABS: Basophils # (Auto) 0.03 K/mcL (0.00-0.30); Basophils % (Auto) 0.6 % (0.0-2.0); Eosinophils # (Auto) 0.15 K/mcL (0.00-0.70); Eosinophils % (Auto) 2.8 % (0.0-7.0); Hematocrit 39.6 % (40.1-51.0); Hemoglobin 13.1 g/dL (13.7-17.5); Lymphocytes # (Auto) 1.64 K/mcL (1.50-4.80); Lymphocytes % (Auto) 30.4 % (15.5-49.0); Mean Cell Volume 90.6 fL (80.0-100.0); Mean Corpuscular HGB Conc 33.1 g/dL (31.0-36.0); Mean Platelet Volume 8.7 fL (7.4-10.4); Monocytes # (Auto) 0.44 K/mcL (0.10-0.90); Monocytes % (Auto) 8.2 % (1.0-12.0); Neutrophils % (Auto) 57.4 % (38.0-78.0); Platelet Count 470 K/mcL (140-440); RBC 4.37 M/mcL (4.63-6.08); WBC 5.4 K/mcL (4.5-11.0)
[2021-10-19] MEDS ORDERED: cefTRIAXone 1 GM VIAL IM ONE (19:41)
[2021-10-19] MEDS ORDERED: SULFAMETHOXAZOLE/TRIMETHOPRIM 1 TABLET PO ONE (19:41)
[2021-10-19 19:44] LABS: Erythrocyte Sedimentation Rate 57 mm/hr (0-15)
[2021-10-19] MEDS ORDERED: VANCOMYCIN PER PHARMACY IV ONE ×2 (19:50→21:37)
[2021-10-19] MEDS ORDERED: 0.9 % SODIUM CHLORIDE 1,915 ML IV ONE (19:50)
[2021-10-19] MEDS ORDERED: PIPERACILLIN SODIUM/TAZOBACTAM 3.375 GM in DEXTROSE 5% IN WATER 50 ML IV SCH (20:00)
--- NOTE | 2021-10-19 20:03 | Orthopedic Consult Note ---
HPI Data of Consult Consult date: 10/19/21 Primary Care Provider: Tico Steel Consult Narrative Patient Information: Note initiated : 10/19/21 at 7:51 pm Service Date, if different from initiated Date: [] Patient: Kelvin Plunkett 41 y/o M admitted on for Left hand swollen. Chief Complaint: [Left index finger swollen] Chief complaint: Left index finger pain, swelling cc:: CC: Review of Systems All systems: reviewed and no additional remarkable complaints except as stated PFSH PFSH All Active Problems Anemia, normocytic normochromic (Acute) Methamphetamine abuse (Acute) Hyperkalemia (Acute) COPD (chronic obstructive pulmonary disease) (Acute) Gastroenteritis (Acute) Sinusitis (Acute) Diabetes (Acute) Hyperglycemia (Acute) Genital herpes (Acute) Abscess of skin or subcutaneous tissue (Acute) Degenerative disc disease, thoracic (Acute) Abscess (Acute) Diabetic keto-acidosis (Acute) Hypoglycemia (Acute) Diabetes mellitus out of control (Acute) Diabetic keto-acidosis (Acute) Delirium (Acute) Substance abuse (Acute) Social History alcohol intake frequency: a few times a week substance use type: other (Unknown) MEDS/ALLERGIES Home Medications and Allergies Home Medications Medication Instructions Recorded Confirmed Type omeprazole 20 mg capsule,delayed 20 mg PO QDAY 04/01/18 10/02/21 History release trazodone 50 mg tablet 50 mg PO HS 04/01/18 10/02/21 History gabapentin 600 mg tablet 600 mg PO BID 06/11/20 10/02/21 History lancets (Microlet Lancet) 06/11/20 10/02/21 History insulin aspart U-100 100 unit/mL See Protocol SUBCUT ACHS #15 ml 06/15/20 10/02/21 Rx (3 mL) subcutaneous pen MDD 40 needle (disp) 30 gauge 30 gauge x #100 ea 06/15/20 10/02/21 Rx 1/2" (BD Specialty Use [place]) pen needle, diabetic 30 gauge x #100 ea 06/15/20 10/02/21 Rx 5/16" fluticasone propionate 250 1 puff PO BID 10/03/21 10/03/21 History mcg/actuation blister powder for inhalation (Flovent Diskus) insulin glargine 100 unit/mL 16 unit (0.16 mL) SUBCUT BID #10 ml 10/04/21 Rx subcutaneous solution (Lantus U-100 Insulin) Allergies Allergy/AdvReac Type Severity Reaction Status Date / Time No Known Drug Allergies Allergy Verified 10/19/21 18:16 Physical Examination Narrative Narrative: Narrative: A/P Narrative A/P Narrative: 41-year-old male with a history of anemia, methamphetamine abuse, COPD, sinusitis, type 1 diabetes, and a history of recent hospitalization for diabetic ketoacidosis and history of treatment for MRSA colonization, presents the ER to be evaluated for a tender and swollen left index finger. He states he was admitted approximately 2 weeks ago here for DKA he woke up in the hospital and he says he has been fatigued and out of it since then. His finger has been worsening over that time and the last few days it is gotten swollen and its painful to move. He denies any history of IV drug use, denies fever, chills, body aches, nausea, vomiting or, chest pain or chest pressure. He says he is generally felt weak. Plan of Treatment: On exam patient is seated bed side in no acute distress. He is animated and anxious but alert, oriented, cooperative and answers questions appropriately. At the Left index finger there is moderate swelling at the MIP joint area most prominent at the volar aspect. This is non-erythematous, no obvious puncture wounds are evident although his legs and arms exhibit multiple scabs and scars in various stages of healing. Flexion of the left index 60 degrees at the MIP and extension to 5 degrees. I had initially recommended outpatient antibiotic treatment with ceftriaxone and Bactrim, however initial labwork reveals lactic acid of 3.3, ESR of 57 and the patient has a mild tachycardia meeting at least some criteria for SIRS/ sepsis. He does continue to deny any SOB, fever, N+V or chills and is not tachypneic, with O2 sats in the mid 90s ORA. At this time we will defer surgical intervention and proceed with a conservative plan consisting of antibiotic therapy. Patient will be consulted by hospitalist service for possible admission. Time Spent With Patient Time: Total time spent is greater than 50% in coordination of care (as documented) at patient's floor/unit and/or counseling patient:
[2021-10-19] MEDS ORDERED: VANCOMYCIN 1,500 MG in 0.9 % SODIUM CHLORIDE 500 ML IV ONE (21:00)
--- NOTE | 2021-10-19 21:06 | Internal Med History&Physical ---
HPI History of Present Illness Patient information: Note initiated : 10/19/21 at 8:58 pm Service Date, if different from initiated Date: [] Patient: Kelvin Plunkett a 41 y/o M admitted on for Left hand swollen. Chief Complaint: [left index finger pain] Chief complaint: left index finger pain History of present illness: Mr. Plunkett is a 41 year old M history of type 1 diabetes mellitus, methamphetamine abuse, COPD, MRSA colonization, recently admitted for DKA associated with type 1 diabetes, presenting with 1 week history of pain and swelling of his left index finger. He does not recall any trauma or injury associated with his left index finger. He has noticed increasing pain with increasing swelling of his left index finger over the past month, possibly longer. He describes the pain as 8 out of 10 in severity, burning and sharp, constant, exacerbated with any finger movement, and partially alleviated by rest. He denies any subjective fever or chills. He denies any change in appetite. He denies any general body weakness. He denies any nausea or vomiting or any stomach upset. Vital signs significant for tachycardia with heart rate in the 1 teens beats per minute. Labs significant for lack of leukocytosis with WBC 5.4. Lactic acid 3.3. ESR 57. Blood glucose 176. Constitutional Constitutional: Absent chills, excessive sweating, fatigue, fever(s) or weakness EENT Eyes: Absent blurry vision, change in vision, loss of vision or other visual disturbances Ears: Absent decreased hearing or tinnitus Nose, mouth and throat: Absent abnormal hearing, dry mouth, headache(s), nasal congestion or sore throat Cardiovascular Cardiovascular: Absent chest pain, chest pain at rest, edema, irregular heart rhythm or palpatations Respiratory Respiratory: Absent cough, dyspnea or wheezing Gastrointestinal Gastrointestinal: Absent abdominal pain, constipation, diarrhea, nausea or vomiting Musculoskeletal Musculoskeletal: Present arthralgias and joint swelling; Absent back pain, deformity, limited range of motion, muscle weakness or numbness Additional comments: Swelling and pain of the left index finger Integumentary Integumentary: Absent lesions, rash or wounds Neurological Neurological: Absent focal weakness, headache(s) or numbness Psychiatric Psychiatric: Absent anxiety, depression or hallucinations PFSH PFSH All Active Problems (Updated 10/19/21 @ 21:08 by Yosef Escobar MD) T1DM (type 1 diabetes mellitus) (Acute) Flexor tenosynovitis of finger (Acute) Anemia, normocytic normochromic (Acute) Methamphetamine abuse (Acute) Hyperkalemia (Acute) COPD (chronic obstructive pulmonary disease) (Acute) Gastroenteritis (Acute) Sinusitis (Acute) Diabetes (Acute) Hyperglycemia (Acute) Genital herpes (Acute) Abscess of skin or subcutaneous tissue (Acute) Degenerative disc disease, thoracic (Acute) Abscess (Acute) Diabetic keto-acidosis (Acute) Hypoglycemia (Acute) Diabetes mellitus out of control (Acute) Diabetic keto-acidosis (Acute) Delirium (Acute) Substance abuse (Acute) Social History alcohol intake frequency: a few times a week substance use type: other (Unknown) MEDS/ALLERGIES Home Medications and Allergies Home Medications Medication Instructions Recorded Confirmed Type omeprazole 20 mg capsule,delayed 20 mg PO QDAY 04/01/18 10/02/21 History release trazodone 50 mg tablet 50 mg PO HS 04/01/18 10/02/21 History gabapentin 600 mg tablet 600 mg PO BID 06/11/20 10/02/21 History lancets (Microlet Lancet) 06/11/20 10/02/21 History insulin aspart U-100 100 unit/mL See Protocol SUBCUT ACHS #15 ml 06/15/20 10/02/21 Rx (3 mL) subcutaneous pen MDD 40 needle (disp) 30 gauge 30 gauge x #100 ea 06/15/20 10/02/21 Rx 1/2" (BD Specialty Use [place]) pen needle, diabetic 30 gauge x #100 ea 06/15/20 10/02/21 Rx 5/16" fluticasone propionate 250 1 puff PO BID 10/03/21 10/03/21 History mcg/actuation blister powder for inhalation (Flovent Diskus) insulin glargine 100 unit/mL 16 unit (0.16 mL) SUBCUT BID #10 ml 10/04/21 Rx subcutaneous solution (Lantus U-100 Insulin) Allergies Allergy/AdvReac Type Severity Reaction Status Date / Time No Known Drug Allergies Allergy Verified 10/19/21 18:16 EXAM Constitutional Vitals: Temp Pulse Resp BP Pulse Ox 36.4 C 112 H 18 134/87 96 10/19/21 18:11 10/19/21 18:11 10/19/21 18:11 10/19/21 18:11 10/19/21 18:11 General appearance: cooperative, disheveled and no acute distress Head Head exam: Present atraumatic and normocephalic Eye Eye exam: Present EOMI and PERRL ENT ENT exam: Present mucous membranes moist, normal exam and normal external ear exam Neck Neck exam: Present normal inspection; Absent lymphadenopathy, tenderness or thyromegaly Respiratory Respiratory exam: Absent accessory muscle use, respiratory distress or wheezes Cardiovascular Cardiovascular exam: Present normal rate and rhythm; Absent JVD GI/Abdominal GI/Abdominal exam: Present normal bowel sounds and soft; Absent organomegaly or tenderness Rectal Rectal exam: Present deferred Extremities Exam Extremities exam: Present joint swelling, normal capillary refill, tenderness and Jr's sign; Absent full ROM or normal inspection Additional comments: Swelling, erythema, warmth, tenderness to touch of left index finger with active and passive ROMs limited by pain Neurological Exam Neurological exam: Present alert, CN II-XII intact and oriented X3; Absent motor sensory deficit Psychiatric Psychiatric exam: Present normal affect and normal mood; Absent anxious or depressed Skin Skin exam: Present dry and intact DATA Data Completed and Pending Labs: Labs from last 24 hours 10/19/21 10/19/21 10/19/21 18:57 18:53 18:51 WBC 5.4 RBC 4.37 L Hgb 13.1 L Hct 39.6 L POC Hct 42.0 MCV 90.6 MCH 30.0 MCHC 33.1 RDW 12.0 Plt Count 470 H MPV 8.7 Immature Gran % (Auto) 0.6 H Neut % (Auto) 57.4 Lymph % (Auto) 30.4 Bennett % (Auto) 8.2 Eos % (Auto) 2.8 Baso % (Auto) 0.6 Lymph # (Auto) 1.64 Bennett # (Auto) 0.44 Eos # (Auto) 0.15 Baso # (Auto) 0.03 Immature Gran # 0.03 Absolute Neutrophils 3.13 ESR 57 H VBG Lactic Acid 3.3 H POC Sodium 137 POC Potassium 4.4 POC Chloride 100 POC Total CO2 25.0 POC BUN 16 POC Creatinine 0.7 POC Glucose 176 H POC WB Ioniz Calcium 1.13 L C-Reactive Protein 10/19/21 18:51 WBC RBC Hgb Hct POC Hct MCV MCH MCHC RDW Plt Count MPV Immature Gran % (Auto) Neut % (Auto) Lymph % (Auto) Bennett % (Auto) Eos % (Auto) Baso % (Auto) Lymph # (Auto) Bennett # (Auto) Eos # (Auto) Baso # (Auto) Immature Gran # Absolute Neutrophils ESR VBG Lactic Acid POC Sodium POC Potassium POC Chloride POC Total CO2 POC BUN POC Creatinine POC Glucose POC WB Ioniz Calcium C-Reactive Protein 0.60 A/P Assessment and plan (1) Flexor tenosynovitis of finger: Status: Acute (2) Anemia, normocytic normochromic: Status: Acute (3) Methamphetamine abuse: Status: Acute (4) COPD (chronic obstructive pulmonary disease): Status: Acute (5) T1DM (type 1 diabetes mellitus): Status: Acute Narrative A/P Narrative: Assessment and Plans: 1. Left index finger tenosynovitis: Inpatient med surg Orthopedic surgeon Dr. Overton consulted, recs. appreciated Serial lactic acid Blood culture cbc w/ diff in the morning to trend h/o MRSA colonization, will start with broad spectrum antibiotics with Vancomycin and Zosyn [id number]/hr Tylenol PRN fever or mild pain Oxycodone PRN moderate pain Morphine IV PRN severe pain 2. h/o T1DM: HgA1c Lantus 16 unit SQ BID SSI AC HS Accu Chek AC HS Hypoglycemia protocol Diabetic diet Gabapentin 3. h/o COPD: Continue Flovent Diskus DuoNeb nebulizer as needed wheezing 4. Anemia, normocytic normochromic: cbc w/ diff in the morning to trend H/H 5. History of methamphetamine abuse: Continue to monitor for any associated symptoms GI ppx: oral PPI from home regimen DVT ppx: Heparin Code status: Full Prognosis: guarded Disposition: inpatient med surg Plan of Treatment: Time Spent With Patient Time: Total time spent is greater than 50% in coordination of care (as documented) at patient's floor/unit and/or counseling patient: Total time spent with greater than 50% in coordination of care (as documented) at patient's floor/unit and/or counseling patient:: 35 - 50 minutes
[2021-10-19] MEDS ORDERED: DEXTROSE 31 GM ORAL.SUSP PO PRN (21:37)
[2021-10-19] MEDS ORDERED: ONDANSETRON 4 MG/2 ML VIAL IV PRN (21:37)
[2021-10-19] MEDS ORDERED: FLUTICASONE PROPIONATE PO SCH (21:37)
[2021-10-19] MEDS ORDERED: NON FORMULARY MEDICATION 1 DOSE MISCELL (Gabapentin 600 mg tablet) PO SCH (21:37)
[2021-10-19] MEDS ORDERED: ACETAMINOPHEN 325 MG TABLET PO PRN (21:37)
[2021-10-19] MEDS ORDERED: [UNRECOGNIZED DRUG - OTHER] PO SCH (21:37)
[2021-10-19] MEDS ORDERED: morphine 4 MG/ML VIAL IV PRN (21:37)
[2021-10-19] MEDS ORDERED: IPRATROPIUM/ALBUTEROL 3 ML AMPUL.NEB NEB PRN (21:37)
[2021-10-19] MEDS: 0.9 % SODIUM CHLORIDE 10 ML SYRINGE IV SCH (22:31)
[2021-10-19] MEDS: DOCUSATE SODIUM 100 MG CAPSULE PO SCH (22:31)
[2021-10-19] MEDS: SENNOSIDES 1 TABLET PO SCH (22:31)
[2021-10-19] MEDS: oxyCODONE HCL 5 MG TABLET PO PRN (22:43)
[2021-10-19] MEDS ORDERED: oxyCODONE HCL 5 MG TABLET PO ONE (22:44)
[2021-10-19] MEDS: traZODone HCL 50 MG TABLET PO SCH (22:44)
[2021-10-19] MEDS ORDERED: traZODone HCL 50 MG TABLET ONE (22:44)
[2021-10-19] MEDS ORDERED: GABAPENTIN 300 MG CAPSULE ONE (22:45)
[2021-10-19] MEDS ORDERED: HEPARIN 5,000 UNIT/ML VIAL ONE (22:45)
[2021-10-19] MEDS: 0.9 % SODIUM CHLORIDE 1,000 ML IV SCH (22:46)
[2021-10-19] MEDS: HEPARIN 5,000 UNIT/ML VIAL SQ SCH (22:46)
[2021-10-19] MEDS: INSULIN LISPRO 1 UNIT/0.01 ML UNIT SQ SCH (23:04)
[2021-10-19] MEDS: INSULIN GLARGINE, HUMAN 1 UNIT/0.01 ML SQ SCH (23:04)
[2021-10-19 23:06] LABS: Hemoglobin A1C 8.5 % Hgb (4.0-6.0)
[2021-10-19] MEDS ORDERED: INSULIN GLARGINE, HUMAN 1 UNIT/0.01 ML SQ ONE (23:08)
[2021-10-19] MEDS ORDERED: INSULIN LISPRO 1 UNIT/0.01 ML UNIT SQ ONE (23:09)
[2021-10-20] MEDS: PIPERACILLIN SODIUM/TAZOBACTAM 3.375 GM in DEXTROSE 5% IN WATER 50 ML IV SCH ×5 (01:31→23:45)
[2021-10-20] MEDS: DEXTROSE 50% 50 ML VIAL IV PRN ×3 (01:40→03:40)
[2021-10-20] MEDS ORDERED: DEXTROSE 50% 50 ML SYRINGE IV ONE ×3 (01:48→03:48)
[2021-10-20] MEDS: 0.9 % SODIUM CHLORIDE 10 ML SYRINGE IV SCH ×3 (05:05→20:59)
[2021-10-20 06:26] LABS: Basophils # (Auto) 0.03 K/mcL (0.00-0.30); Basophils % (Auto) 0.5 % (0.0-2.0); Eosinophils # (Auto) 0.31 K/mcL (0.00-0.70); Eosinophils % (Auto) 5.6 % (0.0-7.0); Hematocrit 34.2 % (40.1-51.0); Hemoglobin 11.1 g/dL (13.7-17.5); Lymphocytes # (Auto) 1.95 K/mcL (1.50-4.80); Lymphocytes % (Auto) 35.1 % (15.5-49.0); Mean Cell Volume 92.9 fL (80.0-100.0); Mean Corpuscular HGB Conc 32.5 g/dL (31.0-36.0); Mean Platelet Volume 8.6 fL (7.4-10.4); Monocytes # (Auto) 0.44 K/mcL (0.10-0.90); Monocytes % (Auto) 7.9 % (1.0-12.0); Neutrophils % (Auto) 50.2 % (38.0-78.0); Platelet Count 384 K/mcL (140-440); RBC 3.68 M/mcL (4.63-6.08); Red Cell Distribution Width 12.3 % (11.5-14.5); WBC 5.6 K/mcL (4.5-11.0)
[2021-10-20 06:50] LABS: ALT/SGPT 17 U/L (<40); AST/SGOT 17 U/L (<40); Albumin 3.1 gm/dL (3.2-5.2); Albumin/Globulin Ratio 1.1 (1.0-2.3); Alkaline Phosphatase 162 U/L (39-117); Bilirubin,Total 0.3 mg/dL (0.1-1.0); Blood Urea Nitrogen 9 mg/dL (6-20); Calcium 8.4 mg/dL (8.6-10.4); Carbon Dioxide 23 mmol/L (22-30); Chloride 101 mmol/L (96-108); Globulin 2.9 gm/dL (2.2-3.7); Glomerular Filtration Rate 116; Glucose 89 mg/dL (70-105); Phosphorous 5.5 mg/dL (2.5-4.5)
[2021-10-20] MEDS ORDERED: VANCOMYCIN PER PHARMACY IV SCH (07:45)
[2021-10-20] MEDS: INSULIN LISPRO 1 UNIT/0.01 ML UNIT SQ SCH ×4 (07:53→20:59)
[2021-10-20] MEDS: 0.9 % SODIUM CHLORIDE 1,000 ML IV SCH ×2 (07:53→17:02)
[2021-10-20] MEDS ORDERED: DEXTROSE 50% 50 ML VIAL IV PRN (09:18)
[2021-10-20] MEDS ORDERED: DEXTROSE 31 GM ORAL.SUSP PO PRN (09:18)
[2021-10-20] MEDS: OMEPRAZOLE 20 MG CAPSULE PO SCH (09:24)
[2021-10-20] MEDS: DOCUSATE SODIUM 100 MG CAPSULE PO SCH ×2 (09:24→20:52)
[2021-10-20] MEDS: GABAPENTIN 300 MG CAPSULE PO SCH ×2 (09:24→20:51)
[2021-10-20] MEDS: HEPARIN 5,000 UNIT/ML VIAL SQ SCH ×2 (09:24→20:51)
[2021-10-20] MEDS: FLUTICASONE PROPIONATE 250 MCG PO SCH ×2 (09:24→20:58)
--- NOTE | 2021-10-20 09:24 | XRay Report ---
HISTORY: Left hand swelling, flexor tenosynovitis FINDINGS: There is an acute, comminuted fracture at the base of the proximal phalanx of the second finger. Lateral view shows volar angulation at the fracture site. There is no disruption of the articular surface. The overlying soft tissues are swollen. No other fracture or dislocation are present. Joint spaces are normal in width and there is no spur formation or bone erosion. Atherosclerotic plaques are seen in the ulnar artery. IMPRESSION: Fractured proximal phalanx of the second finger Interpreted and Authenticated by: Bertrand Lim 10/20/21
[2021-10-20] MEDS: VANCOMYCIN 1,000 MG in 0.9 % SODIUM CHLORIDE 250 ML IV SCH ×2 (09:25→20:51)
[2021-10-20] MEDS: INSULIN GLARGINE, HUMAN 1 UNIT/0.01 ML SQ SCH ×2 (09:35→21:05)
--- NOTE | 2021-10-20 10:04 | Internal Med Progress Note ---
SUBJECTIVE Subjective Patient information: Note initiated : 10/20/21 at 9:58 am Service Date, if different from initiated Date: [] Patient: Kelvin Plunkett a 41 y/o M admitted on 10/19/21 for Left hand swollen. Chief Complaint: [] Interval history: History of present illness: Mr. Plunkett is a 41 year old M history of type 1 diabetes mellitus, methamphetamine abuse, COPD, MRSA colonization, recently admitted for DKA associated with type 1 diabetes, presenting with 1 week history of pain and swelling of his left index finger. He does not recall any trauma or injury associated with his left index finger. He has noticed increasing pain with increasing swelling of his left index finger over the past month, possibly longer. He describes the pain as 8 out of 10 in severity, burning and sharp, constant, exacerbated with any finger movement, and partially alleviated by rest. He denies any subjective fever or chills. He denies any change in appetite. He denies any general body weakness. He denies any nausea or vomiting or any stomach upset. Vital signs significant for tachycardia with heart rate in the 1 teens beats per minute. Labs significant for lack of leukocytosis with WBC 5.4. Lactic acid 3.3. ESR 57. Blood glucose 176. 7/3: Patient's blood sugar up to 500s overnight but this morning was down to 80s. Cultures no growth today. Afebrile overnight. Patient was lethargic overnight but now is starting to awake more and is having a good appetite eating much of the benefits provided. He is still complaining of 8 out of 10 left index finger pain. Denies any subjective fever or chills. Continue broad-spectrum antibiotics with vancomycin and Zosyn. Continue IV fluid NS at 100 cc/h. Orthopedic surgeons consulted, recommendations appreciated. We will hold Lantus for now but will increased Humalog from low scale to high scale AC HS. Constitutional Vitals: Vital Signs Temp Pulse Resp BP Pulse Ox 36.1 C L 88 16 111/76 96 10/20/21 07:44 10/20/21 04:00 10/20/21 07:44 10/20/21 07:44 10/20/21 07:44 Period Temp Pulse Resp BP Sys/Wong Pulse Ox Last 24 Hr 36.1 C-36.6 C 88-112 12-18 111-136/71-87 95-98 Intake and Output 10/19/21 10/20/21 10/20/21 21:59 05:59 13:59 Intake Total 650 3265 50 Balance 650 3265 50 Weight 68.402 kg 68.402 kg Intake & Output: Intake & Output 10/19/21 10/20/21 10/20/21 21:59 05:59 13:59 Intake Total 650 3265 50 Balance 650 3265 50 Weight 68.402 kg 68.402 kg Intake: IV 650 1865 50 Sodium Chloride 0.9% 1,915 ml @ 600 1315 3830 mls/hr IV .Q30M ONE Rx#: [id number] Zosyn 3.375 gm In Dextrose 5% 50 50 50 in Water 50 ml @ 100 mls/hr IV Q6H [facility] Rx#:[id number] Vancomycin 1,500 mg In Sodium 500 Chloride 0.9% 500 ml @ 333.3 mls/hr IV ONCE ONE Rx#: [id number] Oral 1400 Head Head exam: Present atraumatic and normal inspection Eye Eye exam: Present normal appearance ENT ENT exam: Present mucous membranes moist, normal exam and normal external ear exam Neck Neck exam: Present normal inspection Respiratory Respiratory exam: Present normal respiratory exam Cardiovascular Cardiovascular exam: Present normal rate and rhythm GI/Abdominal GI/Abdominal exam: Present normal bowel sounds Extremities Exam Extremities exam: Absent full ROM or normal inspection Additional comments: Erythema, swelling, warmth, tenderness to touch of left index finger with active and passive ROMs limited by pain. Back Exam Back exam: Present normal inspection Neurological Exam Neurological exam: Present alert and oriented X3 Skin Skin exam: Present intact and warm OBJ DATA Labs CBC & Chem 7: 10/20/21 05:34 10/20/21 05:34 Labs: Abnormal Lab Results 10/20/21 10/20/21 10/20/21 05:35 05:34 05:34 RBC 3.68 L Hgb 11.1 L Hct 34.2 L Plt Count Immature Gran % (Auto) 0.7 H ESR VBG Lactic Acid 2.5 H POC Glucose Hemoglobin A1c Calcium 8.4 L POC WB Ioniz Calcium Phosphorus 5.5 H Alkaline Phosphatase 162 H Albumin 3.1 L 10/19/21 10/19/21 10/19/21 23:12 21:57 18:57 RBC Hgb Hct Plt Count Immature Gran % (Auto) ESR VBG Lactic Acid 3.3 H 3.3 H POC Glucose Hemoglobin A1c 8.5 H Calcium POC WB Ioniz Calcium Phosphorus Alkaline Phosphatase Albumin 10/19/21 10/19/21 18:53 18:51 RBC 4.37 L Hgb 13.1 L Hct 39.6 L Plt Count 470 H Immature Gran % (Auto) 0.6 H ESR 57 H VBG Lactic Acid POC Glucose 176 H Hemoglobin A1c Calcium POC WB Ioniz Calcium 1.13 L Phosphorus Alkaline Phosphatase Albumin Meds: Medications Acetaminophen (Acetaminophen 325 Mg Tablet) 650 mg PO Q6HP PRN; Protocol PRN Reason: Per Pain Protocol/Fever > 101 Albuterol/Ipratropium (Ipratropium/Albuterol 3 Ml Ampul.Neb) 3 ml NEB Q4HRT PRN PRN Reason: Wheezing Dextrose (Dextrose 50% 50 Ml Vial) 0 ml IV UD PRN PRN Reason: Per Sliding Scale Last Admin: 10/20/21 03:40 Dose: 50 ml Documented by: Dextrose (Dextrose 50% 50 Ml Vial) 0 ml IV UD PRN PRN Reason: Per Sliding Scale Diagnostic Test (Pha) (Accu-Chek 1 Each Strip) 1 each FS ACHS [facility] Last Admin: 10/20/21 07:54 Dose: 1 each Documented by: Diagnostic Test (Pha) (Accu-Chek 1 Each Strip) 1 each FS ACHS [facility] Docusate Sodium (Docusate Sodium 100 Mg Capsule) 100 mg PO BID [facility] Last Admin: 10/20/21 09:24 Dose: 100 mg Documented by: Gabapentin (Gabapentin 300 Mg Capsule) 600 mg PO BID [facility] Last Admin: 10/20/21 09:24 Dose: 600 mg Documented by: Glucose (Dextrose 31 Gm Oral.Susp) 15 gm PO PRN PRN PRN Reason: Hypoglycemia Glucose (Dextrose 31 Gm Oral.Susp) 15 gm PO PRN PRN PRN Reason: Hypoglycemia Heparin Sodium (Porcine) (Heparin 5,000 Unit/Ml Vial) 5,000 unit SQ Q12 [facility] Last Admin: 10/20/21 09:24 Dose: 5,000 unit Documented by: Sodium Chloride (Sodium Chloride 0.9%) 1,000 mls @ 100 mls/hr IV .Q10H [facility] Last Admin: 10/20/21 07:53 Dose: Not Given Documented by: Piperacillin Sod/Tazobactam (Sod 3.375 gm/ Dextrose) 50 mls @ 100 mls/hr IV Q6H [facility]; Protocol Vancomycin HCl 1,000 mg/ (Sodium Chloride) 250 mls @ 250 mls/hr IV Q12H [facility] Last Admin: 10/20/21 09:25 Dose: 250 mls/hr Documented by: Insulin Human Lispro (Insulin Lispro 1 Unit/0.01 Ml Unit) 0 unit SQ [facility]; Protocol Morphine Sulfate (Morphine 4 Mg/Ml Vial) 4 mg IV Q4HP PRN; Protocol PRN Reason: Per Pain Protocol Omeprazole (Omeprazole 20 Mg Capsule) 20 mg PO QDAY [facility] Last Admin: 10/20/21 09:24 Dose: 20 mg Documented by: Ondansetron HCl (Ondansetron 4 Mg/2 Ml Vial) 4 mg IV Q6HP PRN PRN Reason: Nausea And Vomiting Oxycodone HCl (Oxycodone Hcl 5 Mg Tablet) 5 mg PO Q4HP PRN; Protocol PRN Reason: Per Pain Protocol Last Admin: 10/19/21 22:43 Dose: 5 mg Documented by: Fluticasone Propionate [Flovent Diskus] 250 Mcg Inhaler 1 dose PO BID [facility] Last Admin: 10/20/21 09:24 Dose: Not Given Documented by: Senna (Sennosides 1 Tablet) 2 tab PO [facility] Last Admin: 10/19/21 22:31 Dose: Not Given Documented by: Sodium Chloride (0.9 % Sodium Chloride 10 Ml Syringe) 10 ml IV Q8 [facility] Last Admin: 10/20/21 05:05 Dose: 10 ml Documented by: Trazodone HCl (Trazodone Hcl 50 Mg Tablet) 50 mg PO [facility] Last Admin: 10/19/21 22:44 Dose: 50 mg Documented by: Vancomycin HCl (Vancomycin Per Pharmacy) 1 order IV UD [facility]; Protocol A/P Assessment and plan (1) Flexor tenosynovitis of finger: Status: Acute (2) Anemia, normocytic normochromic: Status: Acute (3) Methamphetamine abuse: Status: Acute (4) COPD (chronic obstructive pulmonary disease): Status: Acute (5) T1DM (type 1 diabetes mellitus): Status: Acute Narrative A/P Narrative: Assessment and Plans: 1. Left index finger tenosynovitis: Inpatient med surg Orthopedic surgeon Dr. Overton consulted, recs. appreciated Serial lactic acid Blood culture, no growth to date cbc w/ diff in the morning to trend h/o MRSA colonization, will start with broad spectrum antibiotics with Vancomycin and Zosyn NS@100cc/hr Tylenol PRN fever or mild pain Oxycodone PRN moderate pain Morphine IV PRN severe pain 2. h/o T1DM: HgA1c Hold Lantus 16 unit SQ BID to avoid hypoglycemia High dose SSI AC HS for better glycemic control Accu Chek AC HS Hypoglycemia protocol Diabetic diet Gabapentin 3. h/o COPD: Continue Flovent Diskus DuoNeb nebulizer as needed wheezing 4. Anemia, normocytic normochromic: cbc w/ diff in the morning to trend H/H 5. History of methamphetamine abuse: Continue to monitor for any associated symptoms GI ppx: oral PPI from home regimen DVT ppx: Heparin Code status: Full Prognosis: guarded Disposition: inpatient med surg Plan of Treatment: Time Spent With Patient Time: Total time spent is greater than 50% in coordination of care (as documented) at patient's floor/unit and/or counseling patient: Total time spent with greater than 50% in coordination of care (as documented) at patient's floor/unit and/or counseling patient:: 35 - 50 minutes QUALITY VTE Deep Vein Thrombosis/Pulmonary Embolism Present on Admission: No
--- NOTE | 2021-10-20 10:08 | Orthopedic Progress Note ---
SUBJECTIVE Subjective Patient information: Note initiated : 10/20/21 at 10:02 am Service Date, if different from initiated Date: [] Patient: Kelvin Plunkett 41 y/o M admitted on 10/19/21 for Left hand swollen. Chief Complaint: [Left index finger pain, swelling] Pertinent ROS: 10 points reviewed and are negative except where mentioned Constitutional Vitals: Vital Signs Temp Pulse Resp BP Pulse Ox 96.9 F L 88 16 111/76 96 10/20/21 07:44 10/20/21 04:00 10/20/21 07:44 10/20/21 07:44 10/20/21 07:44 Period Temp Pulse Resp BP Sys/Wong Pulse Ox Last 24 Hr 96.9 F-97.8 F 88-112 12-18 111-136/71-87 95-98 Intake and Output 10/19/21 10/20/21 10/20/21 21:59 05:59 13:59 Intake Total 650 3265 50 Balance 650 3265 50 Weight 150 lb 12.8 oz 150 lb 12.8 oz Intake & Output: Intake & Output 10/19/21 10/20/21 10/20/21 21:59 05:59 13:59 Intake Total 650 3265 50 Balance 650 3265 50 Weight 150 lb 12.8 oz 150 lb 12.8 oz Intake: IV 650 1865 50 Sodium Chloride 0.9% 1,915 ml @ 600 1315 3830 mls/hr IV .Q30M [facility] Rx#: [id number] Zosyn 3.375 gm In Dextrose 5% 50 50 50 in Water 50 ml @ 100 mls/hr IV Q6H [facility] Rx#:[id number] Vancomycin 1,500 mg In Sodium 500 Chloride 0.9% 500 ml @ 333.3 mls/hr IV ONCE ONE Rx#: [id number] Oral 1400 OBJ DATA Labs CBC & Chem 7: 10/20/21 05:34 10/20/21 05:34 Labs: Abnormal Lab Results 10/20/21 10/20/21 10/20/21 05:35 05:34 05:34 RBC 3.68 L Hgb 11.1 L Hct 34.2 L Plt Count Immature Gran % (Auto) 0.7 H ESR VBG Lactic Acid 2.5 H POC Glucose Hemoglobin A1c Calcium 8.4 L POC WB Ioniz Calcium Phosphorus 5.5 H Alkaline Phosphatase 162 H Albumin 3.1 L 10/19/21 10/19/21 10/19/21 23:12 21:57 18:57 RBC Hgb Hct Plt Count Immature Gran % (Auto) ESR VBG Lactic Acid 3.3 H 3.3 H POC Glucose Hemoglobin A1c 8.5 H Calcium POC WB Ioniz Calcium Phosphorus Alkaline Phosphatase Albumin 10/19/21 10/19/21 18:53 18:51 RBC 4.37 L Hgb 13.1 L Hct 39.6 L Plt Count 470 H Immature Gran % (Auto) 0.6 H ESR 57 H VBG Lactic Acid POC Glucose 176 H Hemoglobin A1c Calcium POC WB Ioniz Calcium 1.13 L Phosphorus Alkaline Phosphatase Albumin Meds: Medications Acetaminophen (Acetaminophen 325 Mg Tablet) 650 mg PO Q6HP PRN; Protocol PRN Reason: Per Pain Protocol/Fever > 101 Albuterol/Ipratropium (Ipratropium/Albuterol 3 Ml Ampul.Neb) 3 ml NEB Q4HRT PRN PRN Reason: Wheezing Last Admin: 10/20/21 10:01 Dose: 3 ml Documented by: Dextrose (Dextrose 50% 50 Ml Vial) 0 ml IV UD PRN PRN Reason: Per Sliding Scale Last Admin: 10/20/21 03:40 Dose: 50 ml Documented by: Dextrose (Dextrose 50% 50 Ml Vial) 0 ml IV UD PRN PRN Reason: Per Sliding Scale Diagnostic Test (Pha) (Accu-Chek 1 Each Strip) 1 each FS ACHS [facility] Last Admin: 10/20/21 07:54 Dose: 1 each Documented by: Diagnostic Test (Pha) (Accu-Chek 1 Each Strip) 1 each FS ACHS [facility] Docusate Sodium (Docusate Sodium 100 Mg Capsule) 100 mg PO BID [facility] Last Admin: 10/20/21 09:24 Dose: 100 mg Documented by: Gabapentin (Gabapentin 300 Mg Capsule) 600 mg PO BID [facility] Last Admin: 10/20/21 09:24 Dose: 600 mg Documented by: Glucose (Dextrose 31 Gm Oral.Susp) 15 gm PO PRN PRN PRN Reason: Hypoglycemia Glucose (Dextrose 31 Gm Oral.Susp) 15 gm PO PRN PRN PRN Reason: Hypoglycemia Heparin Sodium (Porcine) (Heparin 5,000 Unit/Ml Vial) 5,000 unit SQ Q12 [facility] Last Admin: 10/20/21 09:24 Dose: 5,000 unit Documented by: Sodium Chloride (Sodium Chloride 0.9%) 1,000 mls @ 100 mls/hr IV .Q10H [facility] Last Admin: 10/20/21 07:53 Dose: Not Given Documented by: Piperacillin Sod/Tazobactam (Sod 3.375 gm/ Dextrose) 50 mls @ 100 mls/hr IV Q6H [facility]; Protocol Vancomycin HCl 1,000 mg/ (Sodium Chloride) 250 mls @ 250 mls/hr IV Q12H [facility] Last Admin: 10/20/21 09:25 Dose: 250 mls/hr Documented by: Insulin Human Lispro (Insulin Lispro 1 Unit/0.01 Ml Unit) 0 unit SQ ACHS [facility]; Protocol Morphine Sulfate (Morphine 4 Mg/Ml Vial) 4 mg IV Q4HP PRN; Protocol PRN Reason: Per Pain Protocol Omeprazole (Omeprazole 20 Mg Capsule) 20 mg PO QDAY [facility] Last Admin: 10/20/21 09:24 Dose: 20 mg Documented by: Ondansetron HCl (Ondansetron 4 Mg/2 Ml Vial) 4 mg IV Q6HP PRN PRN Reason: Nausea And Vomiting Oxycodone HCl (Oxycodone Hcl 5 Mg Tablet) 5 mg PO Q4HP PRN; Protocol PRN Reason: Per Pain Protocol Last Admin: 10/19/21 22:43 Dose: 5 mg Documented by: Fluticasone Propionate [Flovent Diskus] 250 Mcg Inhaler 1 dose PO BID [facility] Last Admin: 10/20/21 09:24 Dose: Not Given Documented by: Senna (Sennosides 1 Tablet) 2 tab PO [facility] Last Admin: 10/19/21 22:31 Dose: Not Given Documented by: Sodium Chloride (0.9 % Sodium Chloride 10 Ml Syringe) 10 ml IV Q8 [facility] Last Admin: 10/20/21 05:05 Dose: 10 ml Documented by: Trazodone HCl (Trazodone Hcl 50 Mg Tablet) 50 mg PO [facility] Last Admin: 10/19/21 22:44 Dose: 50 mg Documented by: Vancomycin HCl (Vancomycin Per Pharmacy) 1 order IV UD [facility]; Protocol A/P Narrative A/P Narrative: patient seen and examined this am, awake alert oriented, rapidly eating breakfast. no change yet in appearance of finger, he endorses pain with motion, digit remains non-erythematous, mildly swollen, neuro vascularly intact with capillary refill less than 2 seconds. continue IV abx elevate extremity when possible PT/OT PRN pain control Plan is for expected discharge in 1-2 days with follow up at [facility] in 10-14 days s/p discharge. Plan of Treatment: Time Spent With Patient Time: Total time spent is greater than 50% in coordination of care (as documented) at patient's floor/unit and/or counseling patient:
[2021-10-20] MEDS: oxyCODONE HCL 5 MG TABLET PO PRN (11:54)
[2021-10-20] MEDS: traZODone HCL 50 MG TABLET PO SCH (20:52)
[2021-10-20] MEDS: SENNOSIDES 1 TABLET PO SCH (20:52)
[2021-10-20] MEDS ORDERED: PROMETHAZINE 25 MG/ML VIAL IV PRN (22:10)
[2021-10-20] MEDS ORDERED: POLYETHYLENE GLYCOL 3350 17 GM PACKET PO PRN (22:18)
[2021-10-20] MEDS ORDERED: PROMETHAZINE 25 MG/ML VIAL ONE (22:37)
[2021-10-20] MEDS ORDERED: POLYETHYLENE GLYCOL 3350 17 GM PACKET ONE (22:37)
[2021-10-21] MEDS: PIPERACILLIN SODIUM/TAZOBACTAM 3.375 GM in DEXTROSE 5% IN WATER 50 ML IV SCH ×2 (05:51→12:01)
[2021-10-21] MEDS: 0.9 % SODIUM CHLORIDE 10 ML SYRINGE IV SCH ×2 (05:51→15:06)
[2021-10-21 06:09] LABS: Basophils # (Auto) 0.04 K/mcL (0.00-0.30); Basophils % (Auto) 0.7 % (0.0-2.0); Eosinophils # (Auto) 0.57 K/mcL (0.00-0.70); Eosinophils % (Auto) 9.8 % (0.0-7.0); Hematocrit 33.6 % (40.1-51.0); Hemoglobin 10.9 g/dL (13.7-17.5); Lymphocytes # (Auto) 2.04 K/mcL (1.50-4.80); Mean Cell Volume 93.6 fL (80.0-100.0); Mean Corpuscular HGB Conc 32.4 g/dL (31.0-36.0); Mean Platelet Volume 8.6 fL (7.4-10.4); Monocytes # (Auto) 0.37 K/mcL (0.10-0.90); Monocytes % (Auto) 6.3 % (1.0-12.0); Neutrophils % (Auto) 47.3 % (38.0-78.0); Platelet Count 346 K/mcL (140-440); RBC 3.59 M/mcL (4.63-6.08); WBC 5.8 K/mcL (4.5-11.0)
[2021-10-21 06:36] LABS: ALT/SGPT 19 U/L (<40); AST/SGOT 20 U/L (<40); Albumin 3.1 gm/dL (3.2-5.2); Alkaline Phosphatase 158 U/L (39-117); Bilirubin,Total 0.2 mg/dL (0.1-1.0); Blood Urea Nitrogen 11 mg/dL (6-20); Calcium 8.4 mg/dL (8.6-10.4); Carbon Dioxide 25 mmol/L (22-30); Chloride 104 mmol/L (96-108); Glomerular Filtration Rate 116; Glucose 80 mg/dL (70-105); Phosphorous 4.5 mg/dL (2.5-4.5)
[2021-10-21] MEDS ORDERED: VANCOMYCIN 1,000 MG in 0.9 % SODIUM CHLORIDE 250 ML IV SCH (09:30)
[2021-10-21] MEDS: OMEPRAZOLE 20 MG CAPSULE PO SCH (09:33)
[2021-10-21] MEDS: HEPARIN 5,000 UNIT/ML VIAL SQ SCH (09:33)
[2021-10-21] MEDS: DOCUSATE SODIUM 100 MG CAPSULE PO SCH (09:33)
[2021-10-21] MEDS: FLUTICASONE PROPIONATE 250 MCG PO SCH (09:34)
[2021-10-21] MEDS: INSULIN GLARGINE, HUMAN 1 UNIT/0.01 ML SQ SCH (09:34)
[2021-10-21] MEDS: GABAPENTIN 300 MG CAPSULE PO SCH (09:34)
[2021-10-21] MEDS: INSULIN LISPRO 1 UNIT/0.01 ML UNIT SQ SCH ×2 (09:36→12:03)
[2021-10-21] MEDS: VANCOMYCIN 1,000 MG in 0.9 % SODIUM CHLORIDE 250 ML IV SCH (09:54)
[2021-10-21] MEDS ORDERED: POLYETHYLENE GLYCOL 3350 17 GM PACKET PO PRN (11:00)
--- NOTE | 2021-10-21 11:06 | Internal Med Progress Note ---
SUBJECTIVE Subjective Patient information: Note initiated : 10/21/21 at 11:01 am Service Date, if different from initiated Date: [] Patient: Kelvin Plunkett a 41 y/o M admitted on 10/19/21 for Left hand swollen. Chief Complaint: [] Interval history: History of present illness: Mr. Plunkett is a 41 year old M history of type 1 diabetes mellitus, methamphetamine abuse, COPD, MRSA colonization, recently admitted for DKA associated with type 1 diabetes, presenting with 1 week history of pain and swelling of his left index finger. He does not recall any trauma or injury associated with his left index finger. He has noticed increasing pain with increasing swelling of his left index finger over the past month, possibly longer. He describes the pain a s 8 out of 10 in severity, burning and sharp, constant, exacerbated with any finger movement, and partially alleviated by rest. He denies any subjective fever or chills. He denies any change in appetite. He denies any general body weakness. He denies any nausea or vomiting or any stomach upset. Vital signs significant for tachycardia with heart rate in the 1 teens beats per minute. Labs significant for lack of leukocytosis with WBC 5.4. Lactic acid 3.3. ESR 57. Blood glucose 176. 7/3: Patient's blood sugar up to 500s overnight but this morning was down to 80s. Cultures no growth today. Afebrile overnight. Patient was lethargic overnight but now is starting to awake more and is having a good appetite eating much of the benefits provided. He is still complaining of 8 out of 10 left index finger pain. Denies any subjective fever or chills. Continue broad-spectrum antibiotics with vancomycin and Zosyn. Continue IV fluid NS at 100 cc/h. Orthopedic surgeons consulted, recommendations appreciated. We will hold Lantus for now but will increased Humalog from low scale to high scale AC HS. 7/4: Fasting glucose 88 this morning. Afebrile overnight. WBC 5.8 this morning. Blood culture no growth today. Patient is still coming off moderate to severe sharp constant pain of his left index finger. Denies any fever or chills. Patient is not very cooperative and is very agitated and very rude to staff as reported by nursing staff. Continue broad-spectrum antibiotics with vancomycin and Zosyn. Saline lock. We will touch base with surgical team to decide whether surgery is indicated or not. Continue insulin therapy for type 1 diabetes glycemic control. Constitutional Vitals: Vital Signs Temp Pulse Resp BP Pulse Ox 36.0 C L 73 18 130/87 97 10/21/21 08:00 10/21/21 08:00 10/21/21 08:00 10/21/21 08:00 10/21/21 08:00 Period Temp Pulse Resp BP Sys/Wong Pulse Ox Last 24 Hr 36.0 C-36.3 C 73-100 16-22 119-144/70-87 91-100 Intake and Output 10/20/21 10/21/21 10/21/21 21:59 05:59 13:59 Intake Total 443 820 300 Output Total 2375 3600 1000 Balance -1932 -2780 -700 Weight 73.17 kg Intake & Output: Intake & Output 10/20/21 10/21/21 10/21/21 21:59 05:59 13:59 Intake Total 443 820 300 Output Total 2375 3600 1000 Balance -1932 -2780 -700 Weight 73.17 kg Intake: IV 443 460 300 Sodium Chloride 0.9% 1,000 ml @ 393 160 100 mls/hr IV .Q10H [facility] Rx#: [id number] Zosyn 3.375 gm In Dextrose 5% 50 50 50 in Water 50 ml @ 100 mls/hr IV Q6H [facility] Rx#:[id number] Vancomycin 1,000 mg In Sodium 250 250 Chloride 0.9% 250 ml @ 250 mls/ hr IV Q8H [facility] Rx#:[id number] Oral 360 Output: Void Amount 2375 3600 1000 Other: Meal Nourishment/Supplement Percent of Meal Consumed 75% Feeding Ability Independent Urine Appearance Clear Clear Clear Urine Color Bright Yellow Pale Bright Yellow Urine Odor Normal Normal Normal # Voids 1 # Unmeasured Emesis 1 General appearance: disheveled and no acute distress; no cooperative Head Head exam: Present atraumatic and normal inspection Eye Eye exam: Present normal appearance ENT ENT exam: Present mucous membranes moist, normal exam and normal external ear exam Neck Neck exam: Present normal inspection Respiratory Respiratory exam: Present normal respiratory exam Cardiovascular Cardiovascular exam: Present normal rate and rhythm GI/Abdominal GI/Abdominal exam: Present normal bowel sounds Extremities Exam Extremities exam: Present joint swelling and tenderness; Absent full ROM or normal inspection Additional comments: Erythema, swelling, warmth, tenderness to touch of left index finger with active and passive ROMs limited by pain. Back Exam Back exam: Present normal inspection Neurological Exam Neurological exam: Present alert and oriented X3 Skin Skin exam: Present intact and warm Additional comments: Erythema, swelling, warmth, tenderness to touch of left index finger with active and passive ROMs limited by pain. OBJ DATA Labs CBC & Chem 7: 10/21/21 05:27 10/21/21 05:27 Labs: Abnormal Lab Results 10/21/21 10/21/21 10/20/21 05:27 05:27 05:35 RBC 3.59 L Hgb 10.9 L Hct 33.6 L Plt Count Immature Gran % (Auto) 0.9 H Eos % (Auto) 9.8 H ESR VBG Lactic Acid 2.5 H POC Glucose Hemoglobin A1c Calcium 8.4 L POC WB Ioniz Calcium Phosphorus Alkaline Phosphatase 158 H Albumin 3.1 L 10/20/21 10/20/21 10/19/21 05:34 05:34 23:12 RBC 3.68 L Hgb 11.1 L Hct 34.2 L Plt Count Immature Gran % (Auto) 0.7 H Eos % (Auto) ESR VBG Lactic Acid 3.3 H POC Glucose Hemoglobin A1c Calcium 8.4 L POC WB Ioniz Calcium Phosphorus 5.5 H Alkaline Phosphatase 162 H Albumin 3.1 L 10/19/21 10/19/21 10/19/21 21:57 18:57 18:53 RBC Hgb Hct Plt Count Immature Gran % (Auto) Eos % (Auto) ESR VBG Lactic Acid 3.3 H POC Glucose 176 H Hemoglobin A1c 8.5 H Calcium POC WB Ioniz Calcium 1.13 L Phosphorus Alkaline Phosphatase Albumin 10/19/21 18:51 RBC 4.37 L Hgb 13.1 L Hct 39.6 L Plt Count 470 H Immature Gran % (Auto) 0.6 H Eos % (Auto) ESR 57 H VBG Lactic Acid POC Glucose Hemoglobin A1c Calcium POC WB Ioniz Calcium Phosphorus Alkaline Phosphatase Albumin Meds: Medications Acetaminophen (Acetaminophen 325 Mg Tablet) 650 mg PO Q6HP PRN; Protocol PRN Reason: Per Pain Protocol/Fever > 101 Last Admin: 10/20/21 21:05 Dose: 650 mg Documented by: Albuterol/Ipratropium (Ipratropium/Albuterol 3 Ml Ampul.Neb) 3 ml NEB Q4HRT PRN PRN Reason: Wheezing Last Admin: 10/20/21 10:01 Dose: 3 ml Documented by: Dextrose (Dextrose 50% 50 Ml Vial) 0 ml IV UD PRN PRN Reason: Per Sliding Scale Last Admin: 10/20/21 03:40 Dose: 50 ml Documented by: Dextrose (Dextrose 50% 50 Ml Vial) 0 ml IV UD PRN PRN Reason: Per Sliding Scale Diagnostic Test (Pha) (Accu-Chek 1 Each Strip) 1 each FS ACHS [facility] Last Admin: 10/21/21 09:36 Dose: Not Given Documented by: Docusate Sodium (Docusate Sodium 100 Mg Capsule) 100 mg PO BID [facility] Last Admin: 10/21/21 09:33 Dose: 100 mg Documented by: Gabapentin (Gabapentin 300 Mg Capsule) 600 mg PO BID [facility] Last Admin: 10/21/21 09:34 Dose: 600 mg Documented by: Glucose (Dextrose 31 Gm Oral.Susp) 15 gm PO PRN PRN PRN Reason: Hypoglycemia Glucose (Dextrose 31 Gm Oral.Susp) 15 gm PO PRN PRN PRN Reason: Hypoglycemia Heparin Sodium (Porcine) (Heparin 5,000 Unit/Ml Vial) 5,000 unit SQ Q12 [facility] Last Admin: 10/21/21 09:33 Dose: 5,000 unit Documented by: Piperacillin Sod/Tazobactam (Sod 3.375 gm/ Dextrose) 50 mls @ 100 mls/hr IV Q6H [facility]; Protocol Last Infusion: 10/21/21 06:40 Dose: Infused Documented by: Vancomycin HCl 1,000 mg/ (Sodium Chloride) 250 mls @ 250 mls/hr IV Q8H [facility] Last Infusion: 10/21/21 10:55 Dose: Infused Documented by: Insulin Glargine (Insulin Glargine, Human 1 Unit/0.01 Ml) 16 unit SQ BID [facility] Last Admin: 10/21/21 09:34 Dose: 16 units Documented by: Insulin Human Lispro (Insulin Lispro 1 Unit/0.01 Ml Unit) 0 unit SQ [facility]; Protocol Last Admin: 10/21/21 09:36 Dose: Not Given Documented by: Morphine Sulfate (Morphine 4 Mg/Ml Vial) 4 mg IV Q4HP PRN; Protocol PRN Reason: Per Pain Protocol Omeprazole (Omeprazole 20 Mg Capsule) 20 mg PO QDAY [facility] Last Admin: 10/21/21 09:33 Dose: 20 mg Documented by: Ondansetron HCl (Ondansetron 4 Mg/2 Ml Vial) 4 mg IV Q6HP PRN PRN Reason: Nausea And Vomiting Oxycodone HCl (Oxycodone Hcl 5 Mg Tablet) 5 mg PO Q4HP PRN; Protocol PRN Reason: Per Pain Protocol Last Admin: 10/20/21 11:54 Dose: 5 mg Documented by: Fluticasone Propionate [Flovent Diskus] 250 Mcg Inhaler 1 dose PO BID [facility] Last Admin: 10/21/21 09:34 Dose: Not Given Documented by: Polyethylene Glycol (Polyethylene Glycol 3350 17 Gm Packet) 17 gm PO DAILYP PRN PRN Reason: Constipation Last Admin: 10/20/21 22:32 Dose: 17 gm Documented by: Promethazine HCl (Promethazine 25 Mg/Ml Vial) 25 mg IV Q6HP PRN PRN Reason: Nausea And Vomiting Last Admin: 10/20/21 22:32 Dose: 25 mg Documented by: Senna (Sennosides 1 Tablet) 2 tab PO [facility] Last Admin: 10/20/21 20:52 Dose: 2 tab Documented by: Sodium Chloride (0.9 % Sodium Chloride 10 Ml Syringe) 10 ml IV Q8 [facility] Last Admin: 10/21/21 05:51 Dose: Not Given Documented by: Trazodone HCl (Trazodone Hcl 50 Mg Tablet) 50 mg PO [facility] Last Admin: 10/20/21 20:52 Dose: 50 mg Documented by: Vancomycin HCl (Vancomycin Per Pharmacy) 1 order IV UD [facility]; Protocol A/P Assessment and plan (1) Flexor tenosynovitis of finger: Status: Acute (2) Anemia, normocytic normochromic: Status: Acute (3) Methamphetamine abuse: Status: Acute (4) COPD (chronic obstructive pulmonary disease): Status: Acute (5) T1DM (type 1 diabetes mellitus): Status: Acute Narrative A/P Narrative: Assessment and Plans: 1. Left index finger tenosynovitis: Inpatient med surg Orthopedic surgeon Dr. Overton consulted, recs. appreciated Serial lactic acid Blood culture, no growth to date cbc w/ diff in the morning to trend h/o MRSA colonization, will start with broad spectrum antibiotics with Vancomycin and Zosyn Saline lock Tylenol PRN fever or mild pain Oxycodone PRN moderate pain Morphine IV PRN severe pain 2. h/o T1DM: HgA1c Lantus 16 unit SQ BID High dose SSI AC HS for better glycemic control Accu Chek AC HS Hypoglycemia protocol Diabetic diet Gabapentin 3. h/o COPD: Continue Flovent Diskus DuoNeb nebulizer as needed wheezing 4. Anemia, normocytic normochromic: cbc w/ diff in the morning to trend H/H 5. History of methamphetamine abuse: Continue to monitor for any associated symptoms GI ppx: oral PPI from home regimen DVT ppx: Heparin Code status: Full Prognosis: guarded Disposition: inpatient med surg Plan of Treatment: Time Spent With Patient Time: Total time spent is greater than 50% in coordination of care (as documented) at patient's floor/unit and/or counseling patient: Total time spent with greater than 50% in coordination of care (as documented) at patient's floor/unit and/or counseling patient:: 35 - 50 minutes QUALITY VTE Deep Vein Thrombosis/Pulmonary Embolism Present on Admission: No
[2021-10-21] MEDS: 0.9 % SODIUM CHLORIDE 1,000 ML IV SCH (11:30)
--- NOTE | 2021-10-21 13:07 | Internal Med Progress Note ---
SUBJECTIVE Subjective Patient information: Note initiated : 10/21/21 at 1:02 pm Service Date, if different from initiated Date: [] Patient: Kelvin Plunkett a 41 y/o M admitted on 10/19/21 for Left hand swollen. Chief Complaint: [] Interval history: History of present illness: Mr. Plunkett is a 41 year old M history of type 1 diabetes mellitus, methamphetamine abuse, COPD, MRSA colonization, recently admitted for DKA associated with type 1 diabetes, presenting with 1 week history of pain and swelling of his left index finger. He does not recall any trauma or injury associated with his left index finger. He has noticed increasing pain with increasing swelling of his left index finger over the past month, possibly longer. He describes the pain as 8 out of 10 in severity, burning and sharp, constant, exacerbated with any finger movement, and partially alleviated by rest. He denies any subjective fever or chills. He denies any change in appetite. He denies any general body weakness. He denies any nausea or vomiting or any stomach upset. Vital signs significant for tachycardia with heart rate in the 1 teens beats per minute. Labs significant for lack of leukocytosis with WBC 5.4. Lactic acid 3.3. ESR 57. Blood glucose 176. 7/3: Patient's blood sugar up to 500s overnight but this morning was down to 80s. Cultures no growth today. Afebrile overnight. Patient was lethargic overnight but now is starting to awake more and is having a good appetite eating much of the benefits provided. He is still complaining of 8 out of 10 left index finger pain. Denies any subjective fever or chills. Continue broad-spectrum antibiotics with vancomycin and Zosyn. Continue IV fluid NS at 100 cc/h. Orthopedic surgeons consulted, recommendations appreciated. We will hold Lantus for now but will increased Humalog from low scale to high scale AC HS. 10/21: Fasting glucose 88 this morning. Afebrile overnight. WBC 5.8 this morning. B lood culture no growth today. Patient is still coming off moderate to severe sharp constant pain of his left index finger. Denies any fever or chills. Patient is not very cooperative and is very agitated and very rude to staff as reported by nursing staff. 10/22 Constitutional Vitals: Vital Signs Temp Pulse Resp BP Pulse Ox 98.2 F 78 18 118/79 95 07/04/22 11:44 10/21/21 11:44 10/21/21 11:44 10/21/21 11:44 10/21/21 11:44 Period Temp Pulse Resp BP Sys/Wong Pulse Ox Last 24 Hr 96.8 F-98.2 F 73-100 16-22 118-144/70-87 91-100 Intake and Output 10/20/21 10/21/21 10/21/21 21:59 05:59 13:59 Intake Total 443 820 747 Output Total 2375 3600 1000 Balance -1932 -2780 -253 Weight 73.17 kg Intake & Output: Intake & Output 10/20/21 10/21/21 10/21/21 21:59 05:59 13:59 Intake Total 443 820 747 Output Total 2375 3600 1000 Balance -1932 -2780 -253 Weight 73.17 kg Intake: IV 443 460 747 Sodium Chloride 0.9% 1,000 ml @ 393 160 447 100 mls/hr IV .Q10H [facility] Rx#: [id number] Zosyn 3.375 gm In Dextrose 5% 50 50 50 in Water 50 ml @ 100 mls/hr IV Q6H [facility] Rx#:[id number] Vancomycin 1,000 mg In Sodium 250 250 Chloride 0.9% 250 ml @ 250 mls/ hr IV Q8H [facility] Rx#:[id number] Oral 360 Output: Void Amount 2375 3600 1000 Other: Meal Nourishment/Supplement Percent of Meal Consumed 75% Feeding Ability Independent Urine Appearance Clear Clear Clear Urine Color Bright Yellow Pale Bright Yellow Urine Odor Normal Normal Normal # Voids 1 # Unmeasured Emesis 1 Exam: General: Alert, Awake, No acute Distress Eyes/N/T: EOMI, Head/Neck: neck supple, CV: RRR, No murmurs, Pulm: Clear b/l, no wheezing/rhonchi/rales Abd: soft, nontender, +BS x4 Ext: no clubbing/cyanosis/edema. Erythema/swelling/warmth/tenderness Left index finger with active/passive ROMs limited by pain Neuro: Alert, no focal deficits, moves all extremities, Skin: warm/dry OBJ DATA Labs CBC & Chem 7: 10/21/21 05:27 10/21/21 05:27 Labs: Abnormal Lab Results 10/21/21 10/21/21 10/20/21 05:27 05:27 05:35 RBC 3.59 L Hgb 10.9 L Hct 33.6 L Plt Count Immature Gran % (Auto) 0.9 H Eos % (Auto) 9.8 H ESR VBG Lactic Acid 2.5 H POC Glucose Hemoglobin A1c Calcium 8.4 L POC WB Ioniz Calcium Phosphorus Alkaline Phosphatase 158 H Albumin 3.1 L 10/20/21 10/20/21 10/19/21 05:34 05:34 23:12 RBC 3.68 L Hgb 11.1 L Hct 34.2 L Plt Count Immature Gran % (Auto) 0.7 H Eos % (Auto) ESR VBG Lactic Acid 3.3 H POC Glucose Hemoglobin A1c Calcium 8.4 L POC WB Ioniz Calcium Phosphorus 5.5 H Alkaline Phosphatase 162 H Albumin 3.1 L 10/19/21 10/19/21 10/19/21 21:57 18:57 18:53 RBC Hgb Hct Plt Count Immature Gran % (Auto) Eos % (Auto) ESR VBG Lactic Acid 3.3 H POC Glucose 176 H Hemoglobin A1c 8.5 H Calcium POC WB Ioniz Calcium 1.13 L Phosphorus Alkaline Phosphatase Albumin 10/19/21 18:51 RBC 4.37 L Hgb 13.1 L Hct 39.6 L Plt Count 470 H Immature Gran % (Auto) 0.6 H Eos % (Auto) ESR 57 H VBG Lactic Acid POC Glucose Hemoglobin A1c Calcium POC WB Ioniz Calcium Phosphorus Alkaline Phosphatase Albumin Meds: Medications Acetaminophen (Acetaminophen 325 Mg Tablet) 650 mg PO Q6HP PRN; Protocol PRN Reason: Per Pain Protocol/Fever > 101 Last Admin: 10/20/21 21:05 Dose: 650 mg Documented by: Albuterol/Ipratropium (Ipratropium/Albuterol 3 Ml Ampul.Neb) 3 ml NEB Q4HRT PRN PRN Reason: Wheezing Last Admin: 10/20/21 10:01 Dose: 3 ml Documented by: Dextrose (Dextrose 50% 50 Ml Vial) 0 ml IV UD PRN PRN Reason: Per Sliding Scale Last Admin: 10/20/21 03:40 Dose: 50 ml Documented by: Dextrose (Dextrose 50% 50 Ml Vial) 0 ml IV UD PRN PRN Reason: Per Sliding Scale Diagnostic Test (Pha) (Accu-Chek 1 Each Strip) 1 each FS ACHS [facility] Last Admin: 10/21/21 12:03 Dose: 1 each Documented by: Docusate Sodium (Docusate Sodium 100 Mg Capsule) 100 mg PO BID [facility] Last Admin: 10/21/21 09:33 Dose: 100 mg Documented by: Gabapentin (Gabapentin 300 Mg Capsule) 600 mg PO BID [facility] Last Admin: 10/21/21 09:34 Dose: 600 mg Documented by: Glucose (Dextrose 31 Gm Oral.Susp) 15 gm PO PRN PRN PRN Reason: Hypoglycemia Glucose (Dextrose 31 Gm Oral.Susp) 15 gm PO PRN PRN PRN Reason: Hypoglycemia Heparin Sodium (Porcine) (Heparin 5,000 Unit/Ml Vial) 5,000 unit SQ Q12 [facility] Last Admin: 10/21/21 09:33 Dose: 5,000 unit Documented by: Piperacillin Sod/Tazobactam (Sod 3.375 gm/ Dextrose) 50 mls @ 100 mls/hr IV Q6H [facility]; Protocol Last Admin: 10/21/21 12:01 Dose: 100 mls/hr Documented by: Vancomycin HCl 1,000 mg/ (Sodium Chloride) 250 mls @ 250 mls/hr IV Q8H [facility] Last Infusion: 10/21/21 10:55 Dose: Infused Documented by: Insulin Glargine (Insulin Glargine, Human 1 Unit/0.01 Ml) 16 unit SQ BID [facility] Last Admin: 10/21/21 09:34 Dose: 16 units Documented by: Insulin Human Lispro (Insulin Lispro 1 Unit/0.01 Ml Unit) 0 unit SQ [facility]; Protocol Last Admin: 10/21/21 12:03 Dose: Not Given Documented by: Morphine Sulfate (Morphine 4 Mg/Ml Vial) 4 mg IV Q4HP PRN; Protocol PRN Reason: Per Pain Protocol Omeprazole (Omeprazole 20 Mg Capsule) 20 mg PO QDAY [facility] Last Admin: 10/21/21 09:33 Dose: 20 mg Documented by: Ondansetron HCl (Ondansetron 4 Mg/2 Ml Vial) 4 mg IV Q6HP PRN PRN Reason: Nausea And Vomiting Oxycodone HCl (Oxycodone Hcl 5 Mg Tablet) 5 mg PO Q4HP PRN; Protocol PRN Reason: Per Pain Protocol Last Admin: 10/20/21 11:54 Dose: 5 mg Documented by: Fluticasone Propionate [Flovent Diskus] 250 Mcg Inhaler 1 dose PO BID [facility] Last Admin: 10/21/21 09:34 Dose: Not Given Documented by: Polyethylene Glycol (Polyethylene Glycol 3350 17 Gm Packet) 17 gm PO DAILYP PRN PRN Reason: Constipation Last Admin: 10/20/21 22:32 Dose: 17 gm Documented by: Polyethylene Glycol (Polyethylene Glycol 3350 17 Gm Packet) 17 gm PO DAILYP PRN PRN Reason: Constipation Promethazine HCl (Promethazine 25 Mg/Ml Vial) 25 mg IV Q6HP PRN PRN Reason: Nausea And Vomiting Last Admin: 10/20/21 22:32 Dose: 25 mg Documented by: Senna (Sennosides 1 Tablet) 2 tab PO [facility] Last Admin: 10/20/21 20:52 Dose: 2 tab Documented by: Sodium Chloride (0.9 % Sodium Chloride 10 Ml Syringe) 10 ml IV Q8 [facility] Last Admin: 10/21/21 05:51 Dose: Not Given Documented by: Trazodone HCl (Trazodone Hcl 50 Mg Tablet) 50 mg PO [facility] Last Admin: 10/20/21 20:52 Dose: 50 mg Documented by: Vancomycin HCl (Vancomycin Per Pharmacy) 1 order IV UD [facility]; Protocol A/P Narrative A/P Narrative: A: #Left index finger tenosynovitis: #(DM I): - A1c 9.5 #COPD/Asthma: #h/o methamphetamine abuse #Anemia: #GERD: #Cognitive impairment: possible h/o traumatic brain injury P: -Orthopedic surgeon Dr. Overton consulted, recs. appreciated -h/o MRSA colonization, will start with broad spectrum antibiotics with Vancomycin and Zosyn, mrsa screen -home Lantus 16 units BID and SSI. -IS, home IH's -Substance abuse counseling, recommend follow-up with Dr. Muro if hasn't already -DVT ppx: heparin Plan of Treatment: Time Spent With Patient Time: Total time spent is greater than 50% in coordination of care (as documented) at patient's floor/unit and/or counseling patient: QUALITY VTE Deep Vein Thrombosis/Pulmonary Embolism Present on Admission: No
--- NOTE | 2021-10-21 14:22 | Orthopedic Progress Note ---
SUBJECTIVE Subjective Patient information: Note initiated : 10/21/21 at 2:12 pm Service Date, if different from initiated Date: [] Patient: Kelvin Plunkett 41 y/o M admitted on 10/19/21 for Left hand swollen. Chief Complaint: [Left index finger pain Principal diagnosis: Left index finger proximal phalanx fracture Pertinent ROS: 10 points reviewed and are negative except for mentioned. Constitutional Vitals: Vital Signs Temp Pulse Resp BP Pulse Ox 98.2 F 78 18 118/79 95 10/21/21 11:44 10/21/21 11:44 10/21/21 11:44 10/21/21 11:44 10/21/21 11:44 Period Temp Pulse Resp BP Sys/Wong Pulse Ox Last 24 Hr 96.8 F-98.2 F 73-100 -22 118-144/70-87 91-100 Intake and Output 10/21/21 10/21/21 10/21/21 05:59 13:59 21:59 Intake Total 820 797 Output Total 3600 1000 Balance -2780 -203 Intake & Output: Intake & Output 10/21/21 10/21/21 10/21/21 05:59 13:59 21:59 Intake Total 820 797 Output Total 3600 1000 Balance -2780 -203 Intake: IV 460 797 Sodium Chloride 0.9% 1,000 ml @ 160 447 100 mls/hr IV .Q10H [facility] Rx#: [id number] Zosyn 3.375 gm In Dextrose 5% 50 100 in Water 50 ml @ 100 mls/hr IV Q6H [facility] Rx#:[id number] Vancomycin 1,000 mg In Sodium 250 250 Chloride 0.9% 250 ml @ 250 mls/ hr IV Q8H [facility] Rx#:[id number] Oral 360 Output: Void Amount 3600 1000 Other: Urine Appearance Clear Clear Urine Color Pale Bright Yellow Urine Odor Normal Normal # Voids 1 # Unmeasured Emesis 1 OBJ DATA Labs CBC & Chem 7: 10/21/21 05:27 10/21/21 05:27 Labs: Abnormal Lab Results 10/21/21 10/21/21 10/20/21 05:27 05:27 05:35 RBC 3.59 L Hgb 10.9 L Hct 33.6 L Plt Count Immature Gran % (Auto) 0.9 H Eos % (Auto) 9.8 H ESR VBG Lactic Acid 2.5 H POC Glucose Hemoglobin A1c Calcium 8.4 L POC WB Ioniz Calcium Phosphorus Alkaline Phosphatase 158 H Albumin 3.1 L 10/20/21 10/20/21 10/19/21 05:34 05:34 23:12 RBC 3.68 L Hgb 11.1 L Hct 34.2 L Plt Count Immature Gran % (Auto) 0.7 H Eos % (Auto) ESR VBG Lactic Acid 3.3 H POC Glucose Hemoglobin A1c Calcium 8.4 L POC WB Ioniz Calcium Phosphorus 5.5 H Alkaline Phosphatase 162 H Albumin 3.1 L 10/19/21 10/19/21 10/19/21 21:57 18:57 18:53 RBC Hgb Hct Plt Count Immature Gran % (Auto) Eos % (Auto) ESR VBG Lactic Acid 3.3 H POC Glucose 176 H Hemoglobin A1c 8.5 H Calcium POC WB Ioniz Calcium 1.13 L Phosphorus Alkaline Phosphatase Albumin 10/19/21 18:51 RBC 4.37 L Hgb 13.1 L Hct 39.6 L Plt Count 470 H Immature Gran % (Auto) 0.6 H Eos % (Auto) ESR 57 H VBG Lactic Acid POC Glucose Hemoglobin A1c Calcium POC WB Ioniz Calcium Phosphorus Alkaline Phosphatase Albumin Meds: Medications Acetaminophen (Acetaminophen 325 Mg Tablet) 650 mg PO Q6HP PRN; Protocol PRN Reason: Per Pain Protocol/Fever > 101 Last Admin: 10/20/21 21:05 Dose: 650 mg Documented by: Albuterol/Ipratropium (Ipratropium/Albuterol 3 Ml Ampul.Neb) 3 ml NEB Q4HRT PRN PRN Reason: Wheezing Last Admin: 10/20/21 10:01 Dose: 3 ml Documented by: Dextrose (Dextrose 50% 50 Ml Vial) 0 ml IV UD PRN PRN Reason: Per Sliding Scale Last Admin: 10/20/21 03:40 Dose: 50 ml Documented by: Dextrose (Dextrose 50% 50 Ml Vial) 0 ml IV UD PRN PRN Reason: Per Sliding Scale Diagnostic Test (Pha) (Accu-Chek 1 Each Strip) 1 each FS ACHS [facility] Last Admin: 10/21/21 12:03 Dose: 1 each Documented by: Docusate Sodium (Docusate Sodium 100 Mg Capsule) 100 mg PO BID [facility] Last Admin: 10/21/21 09:33 Dose: 100 mg Documented by: Gabapentin (Gabapentin 300 Mg Capsule) 600 mg PO BID [facility] Last Admin: 10/21/21 09:34 Dose: 600 mg Documented by: Glucose (Dextrose 31 Gm Oral.Susp) 15 gm PO PRN PRN PRN Reason: Hypoglycemia Glucose (Dextrose 31 Gm Oral.Susp) 15 gm PO PRN PRN PRN Reason: Hypoglycemia Heparin Sodium (Porcine) (Heparin 5,000 Unit/Ml Vial) 5,000 unit SQ Q12 [facility] Last Admin: 10/21/21 09:33 Dose: 5,000 unit Documented by: Piperacillin Sod/Tazobactam (Sod 3.375 gm/ Dextrose) 50 mls @ 100 mls/hr IV Q6H [facility]; Protocol Last Infusion: 10/21/21 12:55 Dose: Infused Documented by: Vancomycin HCl 1,000 mg/ (Sodium Chloride) 250 mls @ 250 mls/hr IV Q8H [facility] Last Infusion: 10/21/21 10:55 Dose: Infused Documented by: Insulin Glargine (Insulin Glargine, Human 1 Unit/0.01 Ml) 16 unit SQ BID [facility] Last Admin: 10/21/21 09:34 Dose: 16 units Documented by: Insulin Human Lispro (Insulin Lispro 1 Unit/0.01 Ml Unit) 0 unit SQ ACHS [facility]; Protocol Last Admin: 10/21/21 12:03 Dose: Not Given Documented by: Morphine Sulfate (Morphine 4 Mg/Ml Vial) 4 mg IV Q4HP PRN; Protocol PRN Reason: Per Pain Protocol Omeprazole (Omeprazole 20 Mg Capsule) 20 mg PO QDAY [facility] Last Admin: 10/21/21 09:33 Dose: 20 mg Documented by: Ondansetron HCl (Ondansetron 4 Mg/2 Ml Vial) 4 mg IV Q6HP PRN PRN Reason: Nausea And Vomiting Oxycodone HCl (Oxycodone Hcl 5 Mg Tablet) 5 mg PO Q4HP PRN; Protocol PRN Reason: Per Pain Protocol Last Admin: 10/20/21 11:54 Dose: 5 mg Documented by: Fluticasone Propionate [Flovent Diskus] 250 Mcg Inhaler 1 dose PO BID [facility] Last Admin: 10/21/21 09:34 Dose: Not Given Documented by: Polyethylene Glycol (Polyethylene Glycol 3350 17 Gm Packet) 17 gm PO DAILYP PRN PRN Reason: Constipation Last Admin: 10/20/21 22:32 Dose: 17 gm Documented by: Polyethylene Glycol (Polyethylene Glycol 3350 17 Gm Packet) 17 gm PO DAILYP PRN PRN Reason: Constipation Promethazine HCl (Promethazine 25 Mg/Ml Vial) 25 mg IV Q6HP PRN PRN Reason: Nausea And Vomiting Last Admin: 10/20/21 22:32 Dose: 25 mg Documented by: Senna (Sennosides 1 Tablet) 2 tab PO [facility] Last Admin: 10/20/21 20:52 Dose: 2 tab Documented by: Sodium Chloride (0.9 % Sodium Chloride 10 Ml Syringe) 10 ml IV Q8 [facility] Last Admin: 10/21/21 05:51 Dose: Not Given Documented by: Trazodone HCl (Trazodone Hcl 50 Mg Tablet) 50 mg PO [facility] Last Admin: 10/20/21 20:52 Dose: 50 mg Documented by: Vancomycin HCl (Vancomycin Per Pharmacy) 1 order IV UD [facility]; Protocol A/P Narrative A/P Narrative: 41-year-old male poor historian, with history of type 1 diabetes mellitus, methamphetamine abuse and history of MRSA colonization, who originally presented to the ED with complaints of insidious onset of left finger pain and swelling. He initially denied any trauma to the finger and infection and flexor tenosynovitis was suspected. Lab work obtained in the ED revealed elevated lactic acid, sed rate and CRP but lack of leukocytosis. Patient met SIRS/sepsis criteria and was admitted to hospitalist service receiving vancomycin and Zosyn for possible tendon infection. It was later discovered that there was a fracture of the left index finger proximal phalanx. Left index finger remains mildly swollen, tender with any range of motion and palpation, nonerythematous and nondraining. At this time it appears that his left index finger pain can be attributed to trauma to the finger which he now states he "jammed it into something "increase in laboratory values may be a attributed to patient's underlying type 1 diabetes and methamphetamine and street drug use. Plan of Treatment: Today after informed consent, the fracture was reduced and the patient was placed in a short arm radial gutter splint for immobilization of the index finger fracture. Satisfactory alignment of the fracture was confirmed with bedside fluoroscopic imaging. Cast care instructions and precautions were relayed to the patient. He is nonweightbearing with the left upper extremity no more than 10 pounds with right upper extremity. Plan is for expected discharge today to home with follow-up at [facility] in 10 to 14 days. Pain control via alternating with Tylenol/ibuprofen would be appropriate at this point. Patient is stable from the orthopedic standpoint will defer final disposition to attending hospitalist. Time Spent With Patient Time: Total time spent is greater than 50% in coordination of care (as documented) at patient's floor/unit and/or counseling patient:
--- NOTE | 2021-10-21 14:44 | Discharge Summary ---
Discharge Provider Provider IMPORTANT FOLLOW-UP INFORMATION FOR PCP: Patient information: Note initiated : 10/21/21 at 2:40 pm Service Date, if different from initiated Date: [] Patient: Kelvin Plunkett 41 y/o M admitted on 10/19/21 for Left hand swollen. Chief Complaint: [] Date of admission: 10/19/21 21:35 Discharge date: 10/21/21 Primary care physician: Tico Steel Consults: 10/19/21 Consult to Physician [CONS] Stat Comment: Consulting Provider: Yomi Overton Reason For Exam: Physician to Consult Consult to Physician [CONS] Stat Comment: Consulting Provider: Yosef Escobar Reason For Exam: Physician to Consult COURSE Hospital Course Hospital course: History of present illness: Mr. Plunkett is a 41 year old M history of type 1 diabetes mellitus, methamphetamine abuse, COPD, MRSA colonization, recently admitted for DKA associated with type 1 diabetes, presenting with 1 week history of pain and swelling of his left index finger. He does not recall any trauma or injury associated with his left index finger. He has noticed increasing pain with increasing swelling of his left index finger over the past month, possibly longer. He describes the pain as 8 out of 10 in severity, burning and sharp, constant, exacerbated with any finger movement, and partially alleviated by rest. He denies any subjective fever or chills. He denies any change in appetite. He denies any general body weakness. He denies any nausea or vomiting or any stomach upset. Vital signs significant for tachycardia with heart rate in the 1 teens beats per minute. Labs significant for lack of leukocytosis with WBC 5.4. Lactic acid 3.3. ESR 57. Blood glucose 176. 7/3: Patient's blood sugar up to 500s overnight but this morning was down to 80s. Cultures no growth today. Afebrile overnight. Patient was lethargic overnight but now is starting to awake more and is having a good appetite eating much of the benefits provided. He is still complaining of 8 out of 10 left index finger pain. Denies any subjective fever or chills. Continue broad-spectrum antibiotics with vancomycin and Zosyn. Continue IV fluid NS at 100 cc/h. Orthopedic surgeons consulted, recommendations appreciated. We will hold Lantus for now but will increased Humalog from low scale to high scale AC HS. 7/4: Fasting glucose 88 this morning. Afebrile overnight. WBC 5.8 this morning. B lood culture no growth today. Patient is still coming off moderate to severe sharp constant pain of his left index finger. Denies any fever or chills. Patient is not very cooperative and is very agitated and very rude to staff as reported by nursing staff. Patient seen by orthopedic PA today and had fracture reduced placed in a short arm radial gutter splint for immobilization and for patient to follow-up in their office. A: #Left index finger fracture & tenosynovitis: #(DM I): - A1c 9.5 #COPD/Asthma: #h/o methamphetamine abuse #Anemia: #GERD: #Cognitive impairment: possible h/o traumatic brain injury P: -f/u with Dr. Overton in office -splint per ortho Discharge diagnosis: Left index finger fracture tenosynovitis Secondary discharge diagnosis: Diabetes COPD history of meth use anemia GERD Time Spent with Patient Time attestation: Total time spent providing and/or coordinating discharge services: Time spent: Greater than 30 minutes EXAM Constitutional Vitals: Temp Pulse Resp BP Pulse Ox 98.2 F 78 18 118/79 95 10/21/21 11:44 10/21/21 11:44 10/21/21 11:44 10/21/21 11:44 10/21/21 11:44 Discharge Data Data Completed and Pending Labs on day of discharge: Labs from last 24 hours 10/21/21 10/21/21 10/21/21 07:55 05:27 05:27 WBC 5.8 RBC 3.59 L Hgb 10.9 L Hct 33.6 L MCV 93.6 MCH 30.4 MCHC 32.4 RDW 12.0 Plt Count 346 MPV 8.6 Immature Gran % (Auto) 0.9 H Neut % (Auto) 47.3 Lymph % (Auto) 35.0 Josephine % (Auto) 6.3 Eos % (Auto) 9.8 H Baso % (Auto) 0.7 Lymph # (Auto) 2.04 Josephine # (Auto) 0.37 Eos # (Auto) 0.57 Baso # (Auto) 0.04 Immature Gran # 0.05 Absolute Neutrophils 2.81 Sodium 138 Potassium 4.2 Chloride 104 Carbon Dioxide 25 Anion Gap 9.0 BUN 11 Creatinine 0.7 GFR Calculation 116 Glucose 80 Calcium 8.4 L Phosphorus 4.5 Magnesium 1.9 Total Bilirubin 0.2 AST 20 ALT 19 Alkaline Phosphatase 158 H Total Protein 6.1 Albumin 3.1 L Globulin 3.0 Albumin/Globulin Ratio 1.0 Vancomycin Trough 6.9 Preliminary micro results at discharge 10/19/21 23:12 Blood Culture - Preliminary Blood 10/19/21 20:14 Blood Culture - Preliminary Blood Discharge Plan Patient/Caregiver Discharge Instructions Activity: ambulate only with your walker Diet: Regular Diet Prescriptions: New sulfamethoxazole-trimethoprim [Bactrim DS] 800-160 mg tablet 1 tab PO Q12H Qty: 10 0RF Continued trazodone 50 MG tablet 50 mg PO HS 0RF omeprazole 20 MG capsule,delayed release(DR/EC) 20 mg PO QDAY 0RF gabapentin 600 mg tablet 600 mg PO BID 0RF (DME) lancets [Microlet Lancet] Misc MISCELLANEOUS 0RF Label Comments: USE TO TEST BLOOD SUGAR 3 TO 4 TIMES PER DAY. insulin aspart U-100 100 unit/mL (3 mL) insulin pen See Protocol unit subcut ACHS MDD 40 Qty: 15 0RF Protocol: Insulin Sliding Scale, Med Condition: HUMALOG/NOVALOG SC SLIDING Dose/Route: SCALE Condition: FSBS < 70 Dose/Route: Give 4 Oz juice, or 15gm oral Instruction: Glucose, or 25ml D50W IV if Dose/Route: unable to take PO. Recheck in Instruction: 15 min and repeat if FSBS < 70 Condition: FSBS 71-140 Dose/Route: NO COVERAGE Condition: FSBS 141-170 Dose/Route: 2 UNITS Condition: FSBS 171-200 Dose/Route: 4 UNITS Condition: FSBS 201-250 Dose/Route: 6 UNITS Condition: FSBS 251-300 Dose/Route: 8 UNITS Condition: FSBS 301-350 Dose/Route: 10 UNITS Condition: FSBS 351-400 Dose/Route: 12 UNITS Condition: FSBS > 400 Dose/Route: 14 UNITS; REPEAT Q2H X2 Instruction: CONTINUE FOLLOWING SLIDING Condition: SCALE; IF STILL > 400; CALL Dose/Route: PHYSICIAN Rx Instructions: Max units per day 39 Sliding scale insulin: FSBS 71-140 no coverage FSBS 141-170 2 units FSBS 171-200 4 units FSBS 201-250 6 units FSBS 251-300 8 units FSBS 301-350 10 units FSBS 351-400 12 units FSBS >400 14 units; repeat testing in 2 hours and treat accordingly (DME) pen needle, diabetic 30 gauge x 5/16" needle See Rx Instructions .ROUTE .MEDSUPPLY Qty: 100 0RF Rx Instructions: As directed (DME) BD Specialty Use [place] 30 gauge x 1/2" needle See Rx Instructions .ROUTE .MEDSUPPLY Qty: 100 0RF Rx Instructions: As directed Flovent Diskus 250 mcg/actuation blister with device 1 puff PO BID 0RF insulin glargine [Lantus U-100 Insulin] 100 unit/mL Solution 16 unit subcut BID Qty: 10 0RF Follow Up Plan Follow up with: Yomi Overton MD [Physician] - Tico Steel MD [Primary Care Provider] - Patient Disposition: Home, Self-Care Plan of Treatment: Today after informed consent, the fracture was reduced and the patient was placed in a short arm radial gutter splint for immobilization of the index finger fracture. Satisfactory alignment of the fracture was confirmed with bedside fluoroscopic imaging. Cast care instructions and precautions were relayed to the patient. He is nonweightbearing with the left upper extremity no more than 10 pounds with right upper extremity. Plan is for expected discharge today to home with follow-up at [facility] in 10 to 14 days. Pain control via alternating with Tylenol/ibuprofen would be appropriate at this point. Patient is stable from the orthopedic standpoint will defer final disposition to attending hospitalist. Overall status at discharge: patient is progressing back to baseline Discharge Orders: Discharge Order (Routine); Ordered 10/21/21 Ordered By: Jake Marquez [facility] VTE Deep Vein Thrombosis/Pulmonary Embolism Present on Admission: No
== END 2021-10-21 15:00 | disposition home or self-care (01) ==
LOC: ED 18:05 → MEDSUR 21:35 → INTOOBSV 21:35
PROVIDERS: ADMIT Internal Medicine; ATTEND Internal Medicine